=== PATIENT | male | born 1945 | race Caucasian/White ===

== ENCOUNTER 2018-04-20 09:54 | Emergency (ER) | payer MEDICARE, OTHER, SELFPAY ==
--- NOTE | 2018-04-20 10:01 | ED_ITS ---
HPI - Neuro Symptoms/Deficit General Chief Complaint: Neuro Symptoms/Deficit Stated Complaint: BURNING SENSATION ON RT SIDE OF FACE Time Seen by Provider: 04/20/18 09:56 Source: patient Mode of arrival: ambulatory Limitations: no limitations History of Present Illness HPI Narrative: 73-year-old male with a history of a TIA without any residual deficits here for evaluation of a burning sensation to his left cheek. Patient states that he woke at 3 o'clock this morning which is his normal time that he wakes up. He states that at some point after he woke up he started having a burning and itching to the left side of his face. He states that it has been occasional. Also is complaining of tingling that occasionally happens to the back of both sides of his hands. No other symptoms. Does have macular degeneration but no other changes in vision. No numbness or tingling in other parts of his body. No weakness. No chest pain. No nausea vomiting. No ear pain. Has not had his shingles vaccine. Does not have any rash on the side of his face. Related Data Home Medications Medication Instructions Recorded Confirmed [ANTIVERT] #0 01/27/17 Previous Rx's Medication Instructions Recorded cyclobenzaprine 10 mg PO Q8HP PRN #20 tab 01/27/17 cephalexin 500 mg capsule 1,000 mg PO BID 10 Days #40 cap 04/13/18 acyclovir 800 mg PO 5XD 7 Days #35 tab 04/20/18 Allergies Allergy/AdvReac Type Severity Reaction Status Date / Time No Known Drug Allergies Allergy Verified 04/20/18 10:08 Review of Systems Constitutional Denies fever(s) and Denies headache(s) Eyes Denies change in vision Comments: Macular degeneration ENT Ears, Nose, Mouth, and Throat: Denies vertigo, Denies dizziness, Denies headache (s), Denies sore throat and Denies throat swelling Cardiovascular Denies chest pain and Denies dyspnea Respiratory Denies dyspnea Gastrointestinal Gastrointestinal: Denies abdominal pain, Denies nausea and Denies vomiting Genitourinary Denies dysuria and Denies flank pain Musculoskeletal Denies myalgias and Denies arthralgias Integumentary/Breasts Reports pruritus (Left-sided face), Denies lesions, Denies erythema and Denies rash Comments: Burning left-sided face Neurologic Denies vertigo, Denies dizziness and Denies headache(s) Hematologic/Lymphatic Denies easy bleeding and Denies easy bruising Allergic/Immunologic Denies throat swelling [facility] Medical History High cholesterol (Acute) History of TIA (transient ischemic attack) (Acute) Macular degeneration (Acute) Surgical History No pertinent past surgical history (Acute) Social History Smoking Status: Current every day smoker alcohol intake: never Exam Initial Vital Signs Initial Vital Signs: Vital Signs Temperature 98.4 F 04/20/18 10:04 Pulse Rate 90 04/20/18 10:04 Respiratory Rate 13 04/20/18 10:04 Blood Pressure 155/76 H 04/20/18 10:04 Pulse Oximetry 100 04/20/18 10:04 Const General: cooperative, healthy appearing, comfortable, well developed, well groomed and No acute distress Orientation: alert, awake and oriented x3 HENMT Head: normal to inspection Ears: hearing grossly normal bilaterally and TM's normal bilaterally Nose: external nose normal Face and sinus: other (Redness over his left cheek see skin section for further details) Mouth: oral mucosae normal Eyes Eyelids: eyelids normal Pupils: PERRL EOM: EOM intact bilaterally Resp Effort & Inspection: normal respiratory effort Skin Other: Patient with slight redness over the left side of his nose and under his left eye. No vesicles. No blistering. No ulcerations. Neuro General: alert, awake, oriented x3 and gait normal Cranial Nerves: CN's II-XI intact bilaterally Cognition: normal cognition Speech: speech normal Gait: normal gait Motor: muscle tone normal throughout Sensory Exam: no sensory deficits noted (Patient denies any sensory deficits the time of my exam) Extrem General: normal to inspection, full ROM and capillary refill normal Psych Appearance: grossly normal and well kempt Course Vital Signs - 8 hr 04/20/18 10:04 Temperature 98.4 F Pulse Rate 90 Respiratory Rate 13 Blood Pressure 155/76 H Pulse Oximetry 100 MDM - Neuro Symptoms/Deficit Medical Records Attestation: I reviewed the patient's medical records. [facility] Narrative Medical decision making narrative: Patient was asymptomatic with regard to the tingling in the back of bilateral hands at the time of my exam. Was having some burning to the maxillary portion of the left-sided facial nerve. He does have some redness under his left eye. Patient states that this is not normal for him. I do not see any other blistering. He has got a normal neurologic exam otherwise. Secondary to his history and physical exam I have low suspicion for TIA or CVA. I do have some suspicion that the burning may be the very beginnings of the onset of zoster. He currently does not have any rashes. His tympanic membrane is unremarkable. No lesions on his nose. He is not having any ocular symptoms. Had a discussion with patient regarding his symptoms. Will hold on any workup for now. He was given return precautions with regard to TIA/CVA. He is currently taking an aspirin every day. Will send home with a prescription for acyclovir with instructions to hold on this prescription until when/if he develops a rash in the left side of his face. He was instructed that he would then needed to start taking the medicine. Instructed him that he did need to talk with his primary doctor regarding the shingles vaccine which he has not had up to this point. He was given return precautions with regard to this. Patient expressed understanding and agreement with plan. Discharge Plan Departure Patient Disposition: Home Clinical Impression: Facial paresthesia, Paresthesia of hand, bilateral Instructions: Herpes Zoster Vaccine Activity Restrictions/Additional Instructions: Hold on the prescription that you were given today. If he started to developed a rash or blisters on the left side of her face in the area where you are getting the tingling than I highly recommend you fill this prescription and start taking it as directed. Your physical exam today is not consistent with a stroke or a mini-stroke. Recommend that you contact her primary care doctor for a follow-up and to discuss the indications for the shingles vaccine. Return to the emergency department for any new symptoms, worsening symptoms, weakness in her arms and legs, or any other concerning symptoms. Prescriptions: New acyclovir 800 mg tablet 800 mg PO 5XD 7 Days Qty: 35 RF: 0 No Action cephalexin 500 mg capsule 1,000 mg PO BID 10 Days Qty: 40 RF: 0 [ANTIVERT] Qty: 0 RF: 0 cyclobenzaprine 10 MG tablet 10 mg PO Q8HP PRNQty: 20 RF: 0
[2018-04-20 10:04] VITALS: BP 155/76; PULSE 90; RESP 13; TEMP 36.9; O2SAT 100
== END 2018-04-20 10:40 | disposition home or self-care (01) ==
PROVIDERS: Emergency Provider Emergency Medicine; Family Provider Internal Medicine; PCP Internal Medicine
DX: R20.9 Unspecified disturbances of skin sensation (principal); R20.2 Paresthesia of skin
CPT/HCPCS: 99282; 99291

== ENCOUNTER 2018-05-15 12:48 | Emergency (ER) | payer MEDICARE, OTHER, SELFPAY ==
[2018-05-15 12:58] VITALS: BP 132/73; PULSE 199; RESP 14; TEMP 36.4; O2SAT 99
[2018-05-15 16:01] VITALS: BP 140/72; PULSE 97; RESP 18; O2SAT 99
--- NOTE | 2018-05-15 16:23 | PC.NURSE ---
Pt states he fell a few days ago and is now having abdominal discomfort and is concerned. pt states he is here to make sure nothing is wrong with his insides. Pt is ambulating without difficulty, states its hurts to sit so patient is pacing around room.
--- NOTE | 2018-05-15 16:48 | DI.RAD.S_ITS ---
PROCEDURE: XR LUMBAR SPINE 2-3V INDICATIONS: glf with pain TECHNIQUE: 3 views of the lumbar spine were acquired. COMPARISON: None. FINDINGS: Bones: 5 gli-uon-fkzegil vertebrae are present. There is straightening of normal lumbar lordosis. Degenerative endplate changes and decreased intervertebral disc space at L2-3 through L5-S1 levels are seen. No vertebral body compression fractures. No suspicious bony lesions. Soft tissues: Overlying bowel gas pattern is normal. No suspicious soft tissue calcifications. IMPRESSION: Degenerative disc disease throughout lumbar spine most prominent at L5-S1 level. No acute compression fracture or traumatic spondylolisthesis. Dictated by: Jigar Dover M.D. on 05/15/2018 at 17:11 Approved by: Jigar Dover M.D. on 05/15/2018 at 17:12
[2018-05-15 17:26] LABS: Hematocrit 42.4 % (41-53); Hemoglobin 14.4 g/dL (13.5-17.5); Mean Corpuscular HGB Conc 33.9 % (30-36); Mean Corpuscular Hemoglobin 32.3 PG (26-34); Mean Corpuscular Volume 95.4 fL (80-100); Platelet Count 295 X10^3/uL (150-400); Red Blood Cell Count 4.45 X10^6/uL (4.5-5.9); Red Cell Distribution Width 12.9 % (11.6-14.8); White Blood Cell Count 10.4 X10^3/uL (4.5-11.0)
[2018-05-15 17:41] LABS: Alanine Aminotransferase 37 IU/L (21-72); Albumin 4.4 g/dL (3.5-5.0); Albumin Globulin Ratio 1.4 (1.0-2.8); Alkaline Phosphatase 94 U/L (38-126); Aspartate Aminotransferase 28 IU/L (17-59); Bilirubin Total 0.7 mg/dL (0.2-1.3); Blood Urea Nitrogen 16 mg/dL (9-20); Calcium 9.6 mg/dL (8.4-10.2); Carbon Dioxide 30 mmol/L (22-32); Chloride 105 mmol/L (98-107); Estimated Glomerular Filt Rate > 60.0 mL/min (>60); Globulin 3.1 g/dL (1.7-4.1); Glucose 157 mg/dL (80-110); HEMOLYSIS < 15 (0-50); Potassium 4.7 mmol/L (3.4-5.1); Sodium 147 mmol/L (137-145); Total Protein 7.5 g/dL (6.3-8.2)
[2018-05-15 17:54] LABS: Neutrophils Absolute Manual 5096 /uL (3000-5900); Total Cells Counted 100
[2018-05-15 17:55] LABS: RBC Morphology Normal Morphology
--- NOTE | 2018-05-15 18:07 | ED.BACK ---
HPI - Back Pain/Injury <JENNIFER Cevallos - Last Filed: 05/15/18 22:18> General Chief Complaint: Back Pain/Injury Stated Complaint: fall on Sunday, has lower right back pain Time Seen by Provider: 05/15/18 16:41 Source: patient Mode of arrival: ambulatory Limitations: no limitations History of Present Illness HPI Narrative: Patient presents with chief complaint of low back pain. He states he tripped and fell approximately 4-5 days ago. He fell backwards and landed with his lower back on a pipe. He denies any abnormal numbness, tingling denies incontinence, denies weakness. He states he wants to have his insides checked to make sure there are not broken. He states that the pain is on the right side of his lower spine. He denies any bruising, ecchymosis, rash, laceration. He states he has been using ibuprofen once in a while for the pain. He states that there is no blood in his urine. He denies any chest pain, shortness of breath. He is adamant that he tripped and fell and did not pass out. Related Data Home Medications Medication Instructions Recorded Confirmed PreserVision AREDS 1 cap PO BID 05/15/18 05/15/18 aspirin 325 mg PO QPM 05/15/18 05/15/18 atorvastatin 40 mg PO QPM 05/15/18 05/15/18 ibuprofen 400 mg PO Q4-6H PRN 05/15/18 05/15/18 eoottqqq-iev-UJ-lycopen-lutein 1 tab PO QPM 05/15/18 05/15/18 [Centrum Silver] Previous Rx's Medication Instructions Recorded methocarbamol 500 mg PO QID PRN #30 tab 05/15/18 Allergies Allergy/AdvReac Type Severity Reaction Status Date / Time No Known Drug Allergies Allergy Verified 04/20/18 10:08 Review of Systems <JENNIFER Cevallos - Last Filed: 05/15/18 22:18> Review of Systems GENERAL: Denies chills, fatigue, malaise, fever, sweats. HEENT: Denies sinus pain, ear pain, sore throat, difficulty swallowing, dizziness. RESPIRATORY: Denies dyspnea, cough, wheezing, hemoptysis, sputum. CARDIOVASCULAR: Denies chest pain, palpitations, orthopnea, edema, GASTROINTESTINAL: Denies nausea, vomiting, abdominal pain, diarrhea, constipation, melena. : Denies dysuria, frequency, incontinence, hematuria, urinary retention. MUSCULOSKELETAL: See HPI SKIN: Denies rash, skin lesions, or other NEUROLOGIC: Denies weakness, headache, numbness, change in speech, confusion, seizures, incoordination. PSYCHIATRIC: No concerning psychosocial issues. 12 point review of systems is negative except for those stated above Exam <LEO Cevallos-BC - Last Filed: 05/15/18 22:18> Narrative Exam Narrative: GENERAL: This is a well-nourished, well-developed patient, standing in room HEAD: Atraumatic. Normocephalic. No temporal or scalp tenderness. EYES: Pupils equal round and reactive. Extraocular motions intact. No scleral icterus. No injection or drainage. ENT: Nose without bleeding, purulent drainage or septal hematoma. Throat without erythema, tonsillar hypertrophy or exudate. Uvula midline. Airway patent. NECK: Trachea midline. No JVD or lymphadenopathy. Supple, nontender, no meningeal signs. CARDIOVASCULAR: Regular rate and rhythm RESPIRATORY: Clear to auscultation. Breath sounds equal bilaterally. No wheezes, rales, or rhonchi. GASTROINTESTINAL: Abdomen soft, non-tender, nondistended. No hepato-splenomegaly, or palpable masses. No guarding. EXTREMITIES: No clubbing, cyanosis, or edema. No joint tenderness, effusion, or edema noted. BACK: No pain note C-spine or spinal palpation. Patient has pain on the right side of paraspinal muscles. Decreased range of motion. Stable gait. NEURO: AOx3. Using upper and lower extremities equally bilaterally. Stable gait SKIN: No rash or erythema. No erythema, rash, ecchymosis noted on back. Initial Vital Signs Initial Vital Signs: Vital Signs Temperature 97.6 F 05/15/18 12:58 Pulse Rate 199 H 05/15/18 12:58 Respiratory Rate 14 05/15/18 12:58 Blood Pressure 132/73 05/15/18 12:58 Pulse Oximetry 99 05/15/18 12:58 <Alexsandra Albrecht DO - Last Filed: 05/16/18 08:30> Initial Vital Signs Initial Vital Signs: Vital Signs Temperature 97.6 F 05/15/18 12:58 Pulse Rate 199 H 05/15/18 12:58 Respiratory Rate 14 05/15/18 12:58 Blood Pressure 132/73 05/15/18 12:58 Pulse Oximetry 99 05/15/18 12:58 Course <JENNIFER Cevallos - Last Filed: 05/15/18 22:18> Orders Ordered: Discontinued Medications Ketorolac Tromethamine (Toradol) 30 mg IM NOW ONE Stop: 05/15/18 17:54 Last Admin: 05/15/18 18:09 Dose: 30 mg Vital Signs - 8 hr 05/15/18 16:01 05/15/18 18:54 Pulse Rate 97 H 100 H Respiratory Rate 18 18 Blood Pressure 127/78 Blood Pressure [Left Arm] 140/72 Pulse Oximetry 99 98 <Alexsandra Albrecht DO - Last Filed: 05/16/18 08:30> Orders Ordered: Discontinued Medications Ketorolac Tromethamine (Toradol) 30 mg IM NOW ONE Stop: 05/15/18 17:54 Last Admin: 05/15/18 18:09 Dose: 30 mg Vital Signs - 8 hr 05/15/18 16:01 05/15/18 18:54 Pulse Rate 97 H 100 H Respiratory Rate 18 18 Blood Pressure 127/78 Blood Pressure [Left Arm] 140/72 Pulse Oximetry 99 98 MDM - Back Pain/Injury <JENNIFER Cevallos - Last Filed: 05/15/18 22:18> Lab Data Result diagrams: 05/15/18 17:19 05/15/18 17:19 Lab Results 05/15/18 05/15/18 Range/Units 17:19 17:19 WBC 10.4 (4.5-11.0) X10^3/uL RBC 4.45 L (4.5-5.9) X10^6/uL Hgb 14.4 (13.5-17.5) g/dL Hct 42.4 (41-53) % MCV 95.4 (80-100) fL MCH 32.3 (26-34) PG MCHC 33.9 (30-36) % RDW 12.9 (11.6-14.8) % Plt Count 295 (150-400) X10^3/uL Total Counted 100 Seg Neutrophils % 49.0 (38-70) % Lymphocytes % (Manual) 33.0 (25-45) % Atypical Lymphs % 6.0 H ( - 0) % Monocytes % (Manual) 7.0 (2-11) % Eosinophils % (Manual) 4.0 (2-4) % Basophils % (Manual) 1.0 (0-1) % Neutrophils # (Manual) 5096 (5571-8307) /uL RBC Morphology Normal morphology Sodium 147 H (137-145) mmol/L Potassium 4.7 (3.4-5.1) mmol/L Chloride 105 (98-107) mmol/L Carbon Dioxide 30 (22-32) mmol/L BUN 16 (9-20) mg/dL Creatinine 0.80 (0.66-1.25) mg/dL Estimated GFR > 60.0 (>60) mL/min BUN/Creatinine Ratio 20.0 (6-22) Glucose 157 H (80-110) mg/dL Calcium 9.6 (8.4-10.2) mg/dL Total Bilirubin 0.7 (0.2-1.3) mg/dL AST 28 (17-59) IU/L ALT 37 (21-72) IU/L Alkaline Phosphatase 94 (38-126) U/L Total Protein 7.5 (6.3-8.2) g/dL Albumin 4.4 (3.5-5.0) g/dL Globulin 3.1 (1.7-4.1) g/dL Albumin/Globulin Ratio 1.4 (1.0-2.8) Imaging Data l spine xray: Radiologist's impression: [address] [address] XRay Report Signed Patient: Herman Kc GMR#: [id number] : 7Acct:[id number] Age/Sex: 73 / MDate of Service: 05/15/18 Loc: ED Accession Number: [id number] Procedure: XR lumbar spine 2-3V Ordering Provider: Alexsandra Ruiz- PROCEDURE: XR LUMBAR SPINE 2-3V INDICATIONS: glf with pain TECHNIQUE: 3 views of the lumbar spine were acquired. COMPARISON: None. FINDINGS: Bones: 5 muk-lqy-dultlfu vertebrae are present. There is straightening of normal lumbar lordosis. Degenerative endplate changes and decreased intervertebral disc space at L2-3 through L5-S1 levels are seen. No vertebral body compression fractures. No suspicious bony lesions. Soft tissues: Overlying bowel gas pattern is normal. No suspicious soft tissue calcifications. IMPRESSION: Degenerative disc disease throughout lumbar spine most prominent at L5-S1 level. No acute compression fracture or traumatic spondylolisthesis. Dictated by: Jigar Dover M.D. on 05/15/2018 at 17:11 Approved by: Jigar Dover M.D. on 05/15/2018 at 17:12 [facility] Narrative Medical decision making narrative: Patient presents chief complaint lower back pain after falling onto a pipe several days ago. He is not neurologically compromised. He is stable on his feet. His x-ray was negative. I treated with Toradol in the emergency department gave him a prescription for a muscle relaxer. I discussed the warning signs return precautions to the emergency department including weakness, numbness, incontinence. Patient stated understanding and had no questions or concerns upon discharge. <Alexsandra Albrecht, DO - Last Filed: 05/16/18 08:30> Lab Data Lab Results 05/15/18 05/15/18 Range/Units 17:19 17:19 WBC 10.4 (4.5-11.0) X10^3/uL RBC 4.45 L (4.5-5.9) X10^6/uL Hgb 14.4 (13.5-17.5) g/dL Hct 42.4 (41-53) % MCV 95.4 (80-100) fL MCH 32.3 (26-34) PG MCHC 33.9 (30-36) % RDW 12.9 (11.6-14.8) % Plt Count 295 (150-400) X10^3/uL Total Counted 100 Seg Neutrophils % 49.0 (38-70) % Lymphocytes % (Manual) 33.0 (25-45) % Atypical Lymphs % 6.0 H ( - 0) % Monocytes % (Manual) 7.0 (2-11) % Eosinophils % (Manual) 4.0 (2-4) % Basophils % (Manual) 1.0 (0-1) % Neutrophils # (Manual) 5096 (9718-5895) /uL RBC Morphology Normal morphology Sodium 147 H (137-145) mmol/L Potassium 4.7 (3.4-5.1) mmol/L Chloride 105 (98-107) mmol/L Carbon Dioxide 30 (22-32) mmol/L BUN 16 (9-20) mg/dL Creatinine 0.80 (0.66-1.25) mg/dL Estimated GFR > 60.0 (>60) mL/min BUN/Creatinine Ratio 20.0 (6-22) Glucose 157 H (80-110) mg/dL Calcium 9.6 (8.4-10.2) mg/dL Total Bilirubin 0.7 (0.2-1.3) mg/dL AST 28 (17-59) IU/L ALT 37 (21-72) IU/L Alkaline Phosphatase 94 (38-126) U/L Total Protein 7.5 (6.3-8.2) g/dL Albumin 4.4 (3.5-5.0) g/dL Globulin 3.1 (1.7-4.1) g/dL Albumin/Globulin Ratio 1.4 (1.0-2.8) Discharge Plan Departure Patient Disposition: Home Clinical Impression: Back pain Discharge Date/Time: 05/15/18 18:53 Interventions: ED Discharge Assessment Last Done: 05/15/18 18:54 Instructions: Low Back Pain, DI for Low Back Pain, How To Perform RICE (Rest, Ice, Compress, Elevate) Activity Restrictions/Additional Instructions: Your x-rays came back today negative. Please take a muscle relaxer prescription, but do not combine it with any other muscle relaxers or anything that can be sedating. This all with her primary care provider for new or worse symptoms. Often times back pain heels on itself in about 6-8 weeks, but he may need physical therapy in the future or further workup. Please be evaluated immediately if you have any new numbness, tingling, incontinence or saddle anesthesia. Prescriptions: New methocarbamol 500 mg tablet 500 mg PO QID PRN (Reason: muscle spasm) Qty: 30 RF: 0 No Action atorvastatin 40 mg tablet 40 mg PO QPM RF: 0 aspirin 325 mg Tablet 325 mg PO QPM RF: 0 ibuprofen 200 mg Tablet 400 mg PO Q4-6H PRN (Reason: Pain, Mild) RF: 0 kxivepci-yau-BU-lycopen-lutein [Centrum Silver] 0.4-300-250 mg-mcg-mcg Tablet 1 tab PO QPM RF: 0 PreserVision AREDS 1 cap PO BID RF: 0 Referrals: Caleb Plata MD [Primary Care Provider] - <Alexsandra Albrecht DO - Last Filed: 05/16/18 08:30> Cosign ED Attending Cosignature Attestation: I was immediately available in the department for consultation. This documentation has been reviewed and I agree with assessment and plan. Supervised by Alexsandra Albrecht DO
[2018-05-15] MEDS: KETOROLAC 60 MG/2 ML VIAL 30 MG IM (18:09)
--- NOTE | 2018-05-15 18:14 | ED_ITS ---
HPI - Back Pain/Injury <JENNIFER Cevallos - Last Filed: 05/15/18 22:18> General Chief Complaint: Back Pain/Injury Stated Complaint: fall on Sunday, has lower right back pain Time Seen by Provider: 05/15/18 16:41 Source: patient Mode of arrival: ambulatory Limitations: no limitations History of Present Illness HPI Narrative: Patient presents with chief complaint of low back pain. He states he tripped and fell approximately 4-5 days ago. He fell backwards and landed with his lower back on a pipe. He denies any abnormal numbness, tingling denies incontinence, denies weakness. He states he wants to have his insides checked to make sure there are not broken. He states that the pain is on the right side of his lower spine. He denies any bruising, ecchymosis, rash , laceration. He states he has been using ibuprofen once in a while for the pain. He states that there is no blood in his urine. He denies any chest pain, shortness of breath. He is adamant that he tripped and fell and did not pass out. Related Data Home Medications Medication Instructions Recorded Confirmed PreserVision AREDS 1 cap PO BID 05/15/18 05/15/18 aspirin 325 mg PO QPM 05/15/18 05/15/18 atorvastatin 40 mg PO QPM 05/15/18 05/15/18 ibuprofen 400 mg PO Q4-6H PRN 05/15/18 05/15/18 hscjfdlw-nxb-GU-lycopen-lutein 1 tab PO QPM 05/15/18 05/15/18 [Centrum Silver] Previous Rx's Medication Instructions Recorded methocarbamol 500 mg PO QID PRN #30 tab 05/15/18 Allergies Allergy/AdvReac Type Severity Reaction Status Date / Time No Known Drug Allergies Allergy Verified 04/20/18 10:08 Review of Systems <JENNIFER Cevallos - Last Filed: 05/15/18 22:18> Review of Systems GENERAL: Denies chills, fatigue, malaise, fever, sweats. HEENT: Denies sinus pain, ear pain, sore throat, difficulty swallowing, dizziness. RESPIRATORY: Denies dyspnea, cough, wheezing, hemoptysis, sputum. CARDIOVASCULAR: Denies chest pain, palpitations, orthopnea, edema, GASTROINTESTINAL: Denies nausea, vomiting, abdominal pain, diarrhea, constipation, melena. : Denies dysuria, frequency, incontinence, hematuria, urinary retention. MUSCULOSKELETAL: See HPI SKIN: Denies rash, skin lesions, or other NEUROLOGIC: Denies weakness, headache, numbness, change in speech, confusion, seizures, incoordination. PSYCHIATRIC: No concerning psychosocial issues. 12 point review of systems is negative except for those stated above Exam <LEO Cevallos-BC - Last Filed: 05/15/18 22:18> Narrative Exam Narrative: GENERAL: This is a well-nourished, well-developed patient, standing in room HEAD: Atraumatic. Normocephalic. No temporal or scalp tenderness. EYES: Pupils equal round and reactive. Extraocular motions intact. No scleral icterus. No injection or drainage. ENT: Nose without bleeding, purulent drainage or septal hematoma. Throat without erythema, tonsillar hypertrophy or exudate. Uvula midline. Airway patent. NECK: Trachea midline. No JVD or lymphadenopathy. Supple, nontender, no meningeal signs. CARDIOVASCULAR: Regular rate and rhythm RESPIRATORY: Clear to auscultation. Breath sounds equal bilaterally. No wheezes , rales, or rhonchi. GASTROINTESTINAL: Abdomen soft, non-tender, nondistended. No hepato-splenomegaly , or palpable masses. No guarding. EXTREMITIES: No clubbing, cyanosis, or edema. No joint tenderness, effusion, or edema noted. BACK: No pain note C-spine or spinal palpation. Patient has pain on the right side of paraspinal muscles. Decreased range of motion. Stable gait. NEURO: AOx3. Using upper and lower extremities equally bilaterally. Stable gait SKIN: No rash or erythema. No erythema, rash, ecchymosis noted on back. Initial Vital Signs Initial Vital Signs: Vital Signs Temperature 97.6 F 05/15/18 12:58 Pulse Rate 199 H 05/15/18 12:58 Respiratory Rate 14 05/15/18 12:58 Blood Pressure 132/73 05/15/18 12:58 Pulse Oximetry 99 05/15/18 12:58 <Alexsandra Albrecht DO - Last Filed: 05/16/18 08:30> Initial Vital Signs Initial Vital Signs: Vital Signs Temperature 97.6 F 05/15/18 12:58 Pulse Rate 199 H 05/15/18 12:58 Respiratory Rate 14 05/15/18 12:58 Blood Pressure 132/73 05/15/18 12:58 Pulse Oximetry 99 05/15/18 12:58 Course <JENNIFER Cevallos - Last Filed: 05/15/18 22:18> Orders Ordered: Discontinued Medications Ketorolac Tromethamine (Toradol) 30 mg IM NOW ONE Stop: 05/15/18 17:54 Last Admin: 05/15/18 18:09 Dose: 30 mg Vital Signs - 8 hr 05/15/18 16:01 05/15/18 18:54 Pulse Rate 97 H 100 H Respiratory Rate 18 18 Blood Pressure 127/78 Blood Pressure [Left Arm] 140/72 Pulse Oximetry 99 98 <Alexsandra Albrecht DO - Last Filed: 05/16/18 08:30> Orders Ordered: Discontinued Medications Ketorolac Tromethamine (Toradol) 30 mg IM NOW ONE Stop: 05/15/18 17:54 Last Admin: 05/15/18 18:09 Dose: 30 mg Vital Signs - 8 hr 05/15/18 16:01 05/15/18 18:54 Pulse Rate 97 H 100 H Respiratory Rate 18 18 Blood Pressure 127/78 Blood Pressure [Left Arm] 140/72 Pulse Oximetry 99 98 MDM - Back Pain/Injury <JENNIFER Cevallos - Last Filed: 05/15/18 22:18> Lab Data Result diagrams: 05/15/18 17:19 05/15/18 17:19 Lab Results 05/15/18 05/15/18 Range/Units 17:19 17:19 WBC 10.4 (4.5-11.0) X10^3/uL RBC 4.45 L (4.5-5.9) X10^6/uL Hgb 14.4 (13.5-17.5) g/dL Hct 42.4 (41-53) % MCV 95.4 (80-100) fL MCH 32.3 (26-34) PG MCHC 33.9 (30-36) % RDW 12.9 (11.6-14.8) % Plt Count 295 (150-400) X10^3/uL Total Counted 100 Seg Neutrophils % 49.0 (38-70) % Lymphocytes % (Manual) 33.0 (25-45) % Atypical Lymphs % 6.0 H ( - 0) % Monocytes % (Manual) 7.0 (2-11) % Eosinophils % (Manual) 4.0 (2-4) % Basophils % (Manual) 1.0 (0-1) % Neutrophils # (Manual) 5096 (2024-4644) /uL RBC Morphology Normal morphology Sodium 147 H (137-145) mmol/L Potassium 4.7 (3.4-5.1) mmol/L Chloride 105 (98-107) mmol/L Carbon Dioxide 30 (22-32) mmol/L BUN 16 (9-20) mg/dL Creatinine 0.80 (0.66-1.25) mg/dL Estimated GFR > 60.0 (>60) mL/min BUN/Creatinine Ratio 20.0 (6-22) Glucose 157 H (80-110) mg/dL Calcium 9.6 (8.4-10.2) mg/dL Total Bilirubin 0.7 (0.2-1.3) mg/dL AST 28 (17-59) IU/L ALT 37 (21-72) IU/L Alkaline Phosphatase 94 (38-126) U/L Total Protein 7.5 (6.3-8.2) g/dL Albumin 4.4 (3.5-5.0) g/dL Globulin 3.1 (1.7-4.1) g/dL Albumin/Globulin Ratio 1.4 (1.0-2.8) Imaging Data l spine xray: Radiologist's impression: [address] [address] XRay Report Signed Patient: Herman Kc GMR#: [id number] : 7Acct:[id number] Age/Sex: 73 / MDate of Service: 05/15/18 Loc: ED Accession Number: [id number] Procedure: XR lumbar spine 2-3V Ordering Provider: Alexsandra Ruiz- PROCEDURE: XR LUMBAR SPINE 2-3V INDICATIONS: glf with pain TECHNIQUE: 3 views of the lumbar spine were acquired. COMPARISON: None. FINDINGS: Bones: 5 dwx-uel-lojffir vertebrae are present. There is straightening of normal lumbar lordosis. Degenerative endplate changes and decreased intervertebral disc space at L2-3 through L5-S1 levels are seen. No vertebral body compression fractures. No suspicious bony lesions. Soft tissues: Overlying bowel gas pattern is normal. No suspicious soft tissue calcifications. IMPRESSION: Degenerative disc disease throughout lumbar spine most prominent at L5-S1 level. No acute compression fracture or traumatic spondylolisthesis. Dictated by: Jigar Dover M.D. on 05/15/2018 at 17:11 Approved by: Jigar Dover M.D. on 05/15/2018 at 17:12 [facility] Narrative Medical decision making narrative: Patient presents chief complaint lower back pain after falling onto a pipe several days ago. He is not neurologically compromised. He is stable on his feet. His x-ray was negative. I treated with Toradol in the emergency department gave him a prescription for a muscle relaxer. I discussed the warning signs return precautions to the emergency department including weakness, numbness, incontinence. Patient stated understanding and had no questions or concerns upon discharge. <Alexsandra Albrecht, DO - Last Filed: 05/16/18 08:30> Lab Data Lab Results 05/15/18 05/15/18 Range/Units 17:19 17:19 WBC 10.4 (4.5-11.0) X10^3/uL RBC 4.45 L (4.5-5.9) X10^6/uL Hgb 14.4 (13.5-17.5) g/dL Hct 42.4 (41-53) % MCV 95.4 (80-100) fL MCH 32.3 (26-34) PG MCHC 33.9 (30-36) % RDW 12.9 (11.6-14.8) % Plt Count 295 (150-400) X10^3/uL Total Counted 100 Seg Neutrophils % 49.0 (38-70) % Lymphocytes % (Manual) 33.0 (25-45) % Atypical Lymphs % 6.0 H ( - 0) % Monocytes % (Manual) 7.0 (2-11) % Eosinophils % (Manual) 4.0 (2-4) % Basophils % (Manual) 1.0 (0-1) % Neutrophils # (Manual) 5096 (5556-6370) /uL RBC Morphology Normal morphology Sodium 147 H (137-145) mmol/L Potassium 4.7 (3.4-5.1) mmol/L Chloride 105 (98-107) mmol/L Carbon Dioxide 30 (22-32) mmol/L BUN 16 (9-20) mg/dL Creatinine 0.80 (0.66-1.25) mg/dL Estimated GFR > 60.0 (>60) mL/min BUN/Creatinine Ratio 20.0 (6-22) Glucose 157 H (80-110) mg/dL Calcium 9.6 (8.4-10.2) mg/dL Total Bilirubin 0.7 (0.2-1.3) mg/dL AST 28 (17-59) IU/L ALT 37 (21-72) IU/L Alkaline Phosphatase 94 (38-126) U/L Total Protein 7.5 (6.3-8.2) g/dL Albumin 4.4 (3.5-5.0) g/dL Globulin 3.1 (1.7-4.1) g/dL Albumin/Globulin Ratio 1.4 (1.0-2.8) Discharge Plan Departure Patient Disposition: Home Clinical Impression: Back pain Discharge Date/Time: 05/15/18 18:53 Interventions: ED Discharge Assessment Last Done: 05/15/18 18:54 Instructions: Low Back Pain, DI for Low Back Pain, How To Perform RICE (Rest, Ice, Compress, Elevate) Activity Restrictions/Additional Instructions: Your x-rays came back today negative. Please take a muscle relaxer prescription , but do not combine it with any other muscle relaxers or anything that can be sedating. This all with her primary care provider for new or worse symptoms. Often times back pain heels on itself in about 6-8 weeks, but he may need physical therapy in the future or further workup. Please be evaluated immediately if you have any new numbness, tingling, incontinence or saddle anesthesia. Prescriptions: New methocarbamol 500 mg tablet 500 mg PO QID PRN (Reason: muscle spasm) Qty: 30 RF: 0 No Action atorvastatin 40 mg tablet 40 mg PO QPM RF: 0 aspirin 325 mg Tablet 325 mg PO QPM RF: 0 ibuprofen 200 mg Tablet 400 mg PO Q4-6H PRN (Reason: Pain, Mild) RF: 0 sgwfazgn-jge-LV-lycopen-lutein [Centrum Silver] 0.4-300-250 mg-mcg-mcg Tablet 1 tab PO QPM RF: 0 PreserVision AREDS 1 cap PO BID RF: 0 Referrals: Caleb Plata MD [Primary Care Provider] - <Alexsandra Albrecht DO - Last Filed: 05/16/18 08:30> Cosign ED Attending Cosignature Attestation: I was immediately available in the department for consultation. This documentation has been reviewed and I agree with assessment and plan. Supervised by Alexsandra Albrecht DO
[2018-05-15 18:54] VITALS: BP 127/78; PULSE 100; RESP 18; O2SAT 98
== END 2018-05-15 18:53 | disposition home or self-care (01) ==
PROVIDERS: Emergency Provider Nurse Practitioner Family; Family Provider Internal Medicine; PCP Internal Medicine
DX: M54.9 Dorsalgia, unspecified (principal); W01.198A Fall on same level from slipping, tripping and stumbling with subsequent striking against other object, initial encounter
CPT/HCPCS: 36415; 72100; 80053; 85025; 96372; 99282; 99284; J1885

== ENCOUNTER → 2018-05-29 17:11 | Outpatient (CLI) | payer MEDICARE, OTHER, SELFPAY ==
--- NOTE | 2018-05-29 17:14 | DI.MRI.S_ITS ---
PROCEDURE: MR LUMBAR SPINE WO CON INDICATIONS: MUSCLE WEAKNESS TECHNIQUE: Noncontrast sagittal T1 spin echo and T2 fast echo, sagittal STIR, axial T1 and T2 fast spin echo through the lumbar spine. In cases with scoliosis, additional coronal T2 fast spin echo may be performed. COMPARISON: [facility], CR, XR LUMBAR SPINE 2-3V, 05/15/2018, 16:30. FINDINGS: Image quality: Excellent. Alignment and Curvature: There are 5 lumbar-type vertebral bodies by plain film. There is mild grade 1 retrolisthesis of L3 on L4 and L5 on S1. Bone Marrow: Marrow is of normal overall signal. No acute vertebral body compression fractures. Mild reactive signal within the endplates adjacent to the L1-L2, L2-L3, and L3-L4 intervertebral discs. Moderate reactive signal within the endplates adjacent to the L4-L5 and L5-S1 intervertebral discs. Spinal Cord: Conus medullaris terminates at the mid L2 level. Visualized cord demonstrates normal signal and size. Paraspinous Soft Tissues: No paravertebral masses. L1-L2: Mild disc loss and desiccation. Mild diffuse disc bulge. Mild facet and ligamentum plate margin bilaterally. Mild canal stenosis. No foraminal stenosis. L2-L3: Mild disc desiccation. Mild diffuse disc bulge. Mild facet and ligamentum flavum hypertrophy bilaterally. Mild canal stenosis. Mild bilateral foraminal stenosis. L3-L4: Mild disc desiccation. Mild diffuse disc bulge. Mild bilateral facet hypertrophy. Mild canal stenosis. Mild bilateral foraminal stenosis. L4-L5: Mild disc height loss and desiccation. Mild diffuse disc bulge. Mild bilateral facet and ligamentum flavum hypertrophy. Mild canal stenosis. Mild left greater than right foraminal stenosis. L5-S1: Moderate disc height loss and desiccation. Mild diffuse disc bulge with superimposed broad-based right posterolateral and far lateral protrusion. Bilateral facet hypertrophy. Mild canal stenosis. Moderate right and mild left foraminal stenosis. IMPRESSION: 1. Multilevel degenerative disc and facet disease, as well ligamentum flavum hypertrophy. 2. Mild multilevel canal stenoses. 3. Multilevel foraminal stenoses, worst on the right at L5-S1, where there is moderate foraminal stenosis present. Dictated by: Santo Staples M.D. on 05/30/2018 at 8:19 Approved by: Santo Staples M.D. on 05/30/2018 at 8:26
== END ==
PROVIDERS: Family Provider Internal Medicine; PCP Internal Medicine; Visit Provider Internal Medicine
DX: M51.36 Other intervertebral disc degeneration, lumbar region (principal); M51.37 Other intervertebral disc degeneration, lumbosacral region; M62.81 Muscle weakness (generalized); M48.061 Spinal stenosis, lumbar region without neurogenic claudication; M48.07 Spinal stenosis, lumbosacral region
CPT/HCPCS: 72148

== ENCOUNTER → 2019-10-15 20:23 | Outpatient (ROUT) | payer MEDICARE, OTHER, SELFPAY ==
[2019-10-15 22:41] LABS: Prostate Specific Antigen 3.58 ng/mL (0.10-4.00)
== END ==
PROVIDERS: Family Provider Internal Medicine; PCP Internal Medicine; Visit Provider Internal Medicine
DX: R97.20 Elevated prostate specific antigen [PSA] (principal)
CPT/HCPCS: 84153

== ENCOUNTER → 2019-12-19 16:04 | Outpatient (CLI) | payer MEDICARE, OTHER, SELFPAY ==
[2019-12-19 17:34] LABS: Prostate Specific Antigen 1.39 ng/mL (0.10-4.00)
== END ==
PROVIDERS: Family Provider Internal Medicine; PCP Internal Medicine; Referring Provider Specialist; Visit Provider Specialist
DX: N40.1 Benign prostatic hyperplasia with lower urinary tract symptoms (principal)
CPT/HCPCS: 36415; 84153

== ENCOUNTER → 2019-12-25 13:31 | Outpatient (CLI) | payer MEDICARE, OTHER, SELFPAY ==
[2019-12-26 01:01] LABS: COVID19 Sendout Not Detected (Not Detect)
== END ==
PROVIDERS: Family Provider Internal Medicine; PCP Internal Medicine; Visit Provider Physician Assistant
DX: Z01.818 Encounter for other preprocedural examination (principal)
CPT/HCPCS: 87635

== ENCOUNTER 2019-12-29 06:31 | Day surgery (SDC) | payer MEDICARE, OTHER, SELFPAY ==
[2019-12-25 10:41] VITALS: BMI 20.7
[2019-12-29] VITALS (17 sets, daily range): BP systolic 117–137; BP diastolic 59–75; PULSE 61–85; RESP 9–75; TEMP 36.1–37.2; O2SAT 97–100; BMI 20.7
--- NOTE | 2019-12-29 | PATH_ITS ---
[facility] Accession Number: [id number] . 01 Material submitted: . PART A: bladder - RIGHT BLADDER BASE PART B: bladder - LEFT BLADDER BASE . 02 Diagnosis: A., B. Right Bladder Base, Left Bladder Base, TURBP: Papillary urothelial carcinoma, noninvasive; see cancer case summary. . CANCER CASE SUMMARY - URINARY BLADDER . Procedure: Transurethral resection of bladder. Tumor site: Right and left bladder base. Histologic type: Papillary urothelial carcinoma, noninvasive. Associated epithelial lesions: Not identified. Histologic grade: Low grade. Tumor configuration: Papillary. Muscularis propria presence: Muscularis propria present (in left bladder base specimen). Lymphovascular invasion: Not identified. Tumor extension: Noninvasive papillary carcinoma. . [facility] 12/30/2019 1209 Local . 02 Electronically signed: . Rogelio Abraham MD, PhD, Pathologist NPI- [id number] . 01 Gross description: . Part A: RIGHT BLADDER BASE: Received in formalin is 1 fragment(s) of wick, soft tissue measuring 0.3 x 0.2 x 0.2 cm submitted entirely in 1 cassette(s) Part B: LEFT BLADDER BASE: Received in formalin are multiple fragment(s) of wick, soft tissue measuring 0.1 x 0.1 x 0.1 cm to 0.3 x 0.2 x 0.2 cm submitted entirely in 1 cassette(s) /[facility] [place] 12/29/20192022 Local . 02 Pathologist provided ICD-10: C67.9 . 02 CPT . 788022, [id number] Performed at: 01 [facility] [address] [place] [address] [address] [facility], [place], [place] [id number] MD Feliciano Garcia MD Phone: [phone] Performed at: 02 [facility] [place] [address] [place] [id number] MD Vilma Serrano MD Phone: [phone]
--- NOTE | 2019-12-29 07:27 | PM.PREOP ---
Pre-operative Note Interval Note History & Physical reviewed/Exam performed by Physician: Yes Changes to H&P: No H&P completed within 30 days and has changed as indicated here:: There are no changes to the history and physical examination scanned on file.
[2019-12-29] MEDS: LACTATED RINGERS 1,000 ML 42 ML IV (07:33)
[2019-12-29] MEDS: CEFAZOLIN 2 GM/100 ML FROZ.PIGGY IV (07:46)
--- NOTE | 2019-12-29 08:15 | SUR.OPER ---
Lithotomy on padded OR bed, head on pillow, arms secured on padded arm boards at <90 degrees abduction. Legs secured in padded yellow fins stirrups.
[2019-12-29] MEDS: BELLADONNA/OPIUM SUPPOSITORIES 1 EACH PR (08:25)
--- NOTE | 2019-12-29 08:29 | PM.OP.1 ---
Operative Date/Time/Diagnoses Date of procedure: 12/29/19 Time of procedure: 08:29 Pre-op diagnosis: 1. 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 Post-op diagnosis: same Procedure & Clinicians Procedure: 1. Cystoscopy and transurethral resection of bladder tumors x2 (0.5-2 cm). 2. Instillation mitomycin C (20 mg). Same procedure as scheduled: Yes Indications: 1. Recurrent papillary bladder cancer x2. Surgeon: Elisa Dhillon Click Yes if Unassisted: Yes Anesthesia Type: General Operative Notes Findings: 1. Urethral-normal. 2. External sphincter-coapted. 3. Prostate-3.5-4 cm length with high median bar. 4. Bladder-1+ trabeculation. Normal orifices bilaterally. There are 2 papillary neoplasms on the bladder floor the smaller, noted as specimen 1 is on the right. The larger neoplasm labeled specimen 2 is on the left bladder floor. Closure Type: not applicable Specimen(s): other (Papillary bladder neoplasm, 1. And 2. ) Applied: catheter Estimated Blood Loss (mL): 0 Blood products transfused: none Tourniquet time (min): 0 Procedure in detail: The patient was positioned in supine and administered general anesthesia he was then repositioned in semi lithotomy and the lower abdomen genitalia and groin were prepped and draped in sterile fashion. The resectoscope was then advanced to the lower urinary tract with the findings as described above. Using the cold cup biopsy forceps each of the 2 tumors were resected by cold technique. The cold cup biopsy forcep was then replaced with the TUR loop. Each of the tumor bases and periphery were cautery destroyed. Hemostasis was obtained with electrocautery via the loop. The bladder was left partially filled and the resectoscope was removed. A 16 Kinyarwanda Longo catheter was then inserted in the bladder, the balloon inflated to 10 cc. Bladder contents were then drained and the mitomycin instillation was instilled for anticipated to our postoperative retention. Complications: none Post-operative Condition: stable Disposition: PACU Plan for aftercare: Discharge home
[2019-12-29] MEDS: mitoMYcin 20 MG in WATER FOR INJECTION 20 ML 240 ML INTRAVESIC (08:40)
--- NOTE | 2019-12-29 08:50 | SUR.PHASEI ---
Patient arouses to voice. Mitomycin given by Dr Dhillon. Patient states he has mild discomfort, but it is tolerable and did not want pain medication at this time. Tolerating po. Denies nausea.
--- NOTE | 2019-12-29 09:14 | SUR.PHASEI ---
Patient continues to doze intermittently. Denies pain and nausea.Pt aware mitomycin needs to stay in bladder for 2 hours: until 1040.
--- NOTE | 2019-12-29 10:57 | SUR.PHASEII ---
DC'd delarosa catheter. UOP per delarosa = 400. Patient states he was feeling more discomfort with the feeling of a full bladder and the urge to void, but states he is comfortable and is refusing pain medication. States, I don't take medication. Reviewed reasons to take pain medications after surgery, but pt insisted he didn't want any.
--- NOTE | 2019-12-29 12:11 | SUR.PHASEII ---
Patient voided x 2. 50ml each time.
== END 2019-12-29 12:12 | disposition home or self-care (01) ==
PROVIDERS: Family Provider Internal Medicine; PCP Internal Medicine; Referring Provider Specialist; Visit Provider Specialist
PROC: 0TBB8ZZ Excision of Bladder, Via Natural or Artificial Opening Endoscopic (ICD-10-PCS; CPT 52234; principal; 2019-12-29 07:45)
DX: C67.9 Malignant neoplasm of bladder, unspecified (principal); N40.0 Benign prostatic hyperplasia without lower urinary tract symptoms; F17.210 Nicotine dependence, cigarettes, uncomplicated
CPT/HCPCS: 52234; J0690; J2405; J2704; J3010; J9280

== ENCOUNTER → 2020-04-05 12:14 | Outpatient (CLI) | payer MEDICARE, OTHER, SELFPAY ==
[2020-04-05 13:13] LABS: Add Manual Diff / Slide Review NO; Basophils Absolute Auto 0 /uL (0-100); Basophils Percent Auto 0.5 % (0-2); Eosinophils Absolute Auto 200 /uL (0-450); Eosinophils Percent Auto 2.4 % (2-4); Hemoglobin 12.9 g/dL (13.5-17.5); Lymphocytes Absolute Auto 2200 /uL (1100-4500); Lymphocytes Percent Auto 28.7 % (25-40); Mean Corpuscular Hemoglobin 32.1 PG (26-34); Mean Corpuscular Volume 94.3 fL (80-100); Monocytes Absolute Auto 700 /uL (0-900); Monocytes Percent Auto 8.7 % (3-14); Neutrophils Absolute Auto 4600 /uL (1500-7000); Neutrophils Percent Auto 59.7 % (50-75); Platelet Count 250 X10^3/uL (150-400); Red Blood Cell Count 4.03 X10^6/uL (4.5-5.9); Red Cell Distribution Width 12.3 % (11.6-14.8); White Blood Cell Count 7.8 X10^3/uL (4.5-11.0)
[2020-04-05 13:53] LABS: Alanine Aminotransferase 23 IU/L (<50); Albumin Globulin Ratio 1.4 (1.0-2.8); Alkaline Phosphatase 115 U/L (38-126); Aspartate Aminotransferase 26 IU/L (17-59); BUN Creatinine Ratio 25.3 (6-22); Bilirubin Total 0.5 mg/dL (0.2-1.3); Blood Urea Nitrogen 20 mg/dL (9-20); Calcium 9.8 mg/dL (8.4-10.2); Carbon Dioxide 27 mmol/L (22-32); Chloride 102 mmol/L (98-107); Estimated Glomerular Filt Rate > 60.0 mL/min (>60); Globulin 2.9 g/dL (1.7-4.1); Glucose 245 mg/dL (80-110); HEMOLYSIS < 15 (0-50); Potassium 4.4 mmol/L (3.4-5.1); Sodium 135 mmol/L (137-145); Total Protein 6.9 g/dL (6.3-8.2)
== END ==
PROVIDERS: Family Provider Internal Medicine; PCP Internal Medicine; Referring Provider Internal Medicine; Visit Provider Student in an Organized Health Care Education/Training Program
DX: R42 Dizziness and giddiness (principal)
CPT/HCPCS: 36415; 80053; 85025

== ENCOUNTER → 2020-10-13 15:12 | Outpatient (CLI) | payer MEDICARE, OTHER, SELFPAY ==
[2020-10-13 16:11] LABS: Add Manual Diff / Slide Review NO; Basophils Absolute Auto 0 /uL (0-100); Basophils Percent Auto 0.7 % (0-2); Eosinophils Absolute Auto 100 /uL (0-450); Eosinophils Percent Auto 1.9 % (2-4); Hematocrit 37.5 % (41-53); Hemoglobin 12.7 g/dL (13.5-17.5); Lymphocytes Absolute Auto 1900 /uL (1100-4500); Lymphocytes Percent Auto 27.7 % (25-40); Mean Corpuscular HGB Conc 33.9 % (30-36); Mean Corpuscular Hemoglobin 32.3 PG (26-34); Mean Corpuscular Volume 95.4 fL (80-100); Monocytes Absolute Auto 600 /uL (0-900); Monocytes Percent Auto 8.9 % (3-14); Neutrophils Absolute Auto 4200 /uL (1500-7000); Neutrophils Percent Auto 60.8 % (50-75); Platelet Count 231 X10^3/uL (150-400); Red Blood Cell Count 3.94 X10^6/uL (4.5-5.9); Red Cell Distribution Width 12.4 % (11.6-14.8); White Blood Cell Count 6.9 X10^3/uL (4.5-11.0)
[2020-10-13 16:19] LABS: Alanine Aminotransferase 25 IU/L (<50); Albumin Globulin Ratio 1.4 (1.0-2.8); Alkaline Phosphatase 107 U/L (38-126); Aspartate Aminotransferase 25 IU/L (17-59); BUN Creatinine Ratio 25.3 (6-22); Bilirubin Total 0.5 mg/dL (0.2-1.3); Blood Urea Nitrogen 21 mg/dL (9-20); Calcium 9.2 mg/dL (8.4-10.2); Carbon Dioxide 28 mmol/L (22-32); Chloride 97 mmol/L (98-107); Cholesterol 100 mg/dL (140-199); Estimated Glomerular Filt Rate > 60.0 mL/min (>60); Globulin 2.9 g/dL (1.7-4.1); Glucose 402 mg/dL (80-110); HDL Cholesterol 33 mg/dL (40-60); HEMOLYSIS < 15 (0-50); LDL Cholesterol Calculated 40 mg/dL (<100); Potassium 4.2 mmol/L (3.4-5.1); Sodium 131 mmol/L (137-145); Total Protein 6.9 g/dL (6.3-8.2); Triglycerides 134 mg/dL (35-150)
[2020-10-13 16:49] LABS: TSH w/ Reflex to FT4 1.39 uIU/mL (0.47-4.68)
== END ==
PROVIDERS: Family Provider Internal Medicine; PCP Internal Medicine; Referring Provider Internal Medicine; Visit Provider Internal Medicine
DX: E11.69 Type 2 diabetes mellitus with other specified complication (principal); E78.2 Mixed hyperlipidemia
CPT/HCPCS: 36415; 80053; 80061; 84443; 85025

== ENCOUNTER → 2020-11-08 08:08 | Outpatient (CLI) | payer MEDICARE, OTHER, SELFPAY ==
[2020-11-08] MEDS: COVID-19 VACC, Ad26(JANSSEN)/PF 0.5 ML IM (08:10)
== END ==
PROVIDERS: Family Provider Internal Medicine; PCP Internal Medicine; Visit Provider Internal Medicine
DX: Z23 Encounter for immunization (principal)
CPT/HCPCS: 0031A; 91303

== ENCOUNTER → 2020-11-24 08:38 | Outpatient (CLI) | payer MEDICARE, OTHER, SELFPAY ==
--- NOTE | 2020-11-24 10:15 | DIET.PN ---
Diabetes Intake: Initial Assessment Assess: Mr. Kc is a 75 yom referred for recently diagnosed type 2 diabetes. He reports significant dietary changes since diagnosis. He has been avoiding all sugar and starches other than his breakfast cereal. Admits to eating a large bowl of raisin bran with 12oz milk. He has been monitoring his bedtime bg. Labs: Per pt report: A1c: 12.0 Meds: metformin 500mg BID Diet: per 24 hr recall: B: raisin bran w/ milk L: leftover meat; sandwich D: protein, vegetables Sn: handful of peanuts; dried cranberries Wt: 150lb Ht: 70in BMI: 21.5 BP: 126/72 DX: Altered nutrition related laboratory values related to impaired glucose metabolism, lack of previous exposure to nutrition information as evidenced by pt report, diagnosis of diabetes, previous diet high in refined carbohydrates. Intervention: 1. Completed intake assessment. Discussed barriers to care. 2. Discussed pathophysiology of diabetes. Reviewed A1c and its correlation to blood glucose numbers. Discussed recommended BG ranges. 3. Discussed importance of self-monitoring, how often, and when to check. 4. Reviewed hyper/hypoglycemia and treatment. 5. Reviewed safe disposal of equipment (strip/lancets/insulin needles). 6. Created SMART goals for pt self-care and success. 7. Discussed program curriculum outline and class needs based on individual goals. SMART Goals: 1. A1c <7.0 in the next 3-6 mo through continued dietary efforts including carb counting, portion control and regular exercise. Monitor/Evaluate: Pt will attend full DSME program. Basic Nutrition class scheduled for Nov 30.
== END ==
PROVIDERS: Family Provider Internal Medicine; PCP Internal Medicine; Referring Provider Internal Medicine; Visit Provider Internal Medicine
DX: E11.9 Type 2 diabetes mellitus without complications (principal)
CPT/HCPCS: G0108

== ENCOUNTER → 2020-11-30 13:46 | Outpatient (CLI) | payer MEDICARE, OTHER, SELFPAY ==
--- NOTE | 2020-11-30 15:13 | DIET.PN ---
Diabetes: Healthy Eating 1 Intervention: ? Discussed pathophysiology of diabetes and impact of nutrition/diet on blood sugar control.? Discussed fed versus non-fed state.?? ? Reviewed importance of Balance, Variety, and Moderation. ? Discussed the effect of carbohydrates/protein/fat on blood sugar control.? ? Stressed importance of consistent carbohydrate intake at each meal and provided instructions for recommended servings/portions of carbohydrates/protein per meal. Provided educational material. ? Reviewed carbohydrate counting and measuring carbohydrate content via serving sizes and reading nutrition labels.? Provided handouts.?? ? Discussed the difference between simple versus complex carbohydrates and the effect of fiber on blood sugar control.? Discussed various methods to increase fiber content in diet. ? Discussed the plate method for creating more carbohydrate conscious balanced meals. ? Stressed importance of meal timing and not going >4-5 hours between meals. Encouraged adding protein to evening snack to support glucose control overnight. ? Discussed importance of making dietary habits part of lifestyle change.
== END ==
PROVIDERS: Family Provider Internal Medicine; PCP Internal Medicine; Referring Provider Internal Medicine; Visit Provider Internal Medicine
DX: E11.9 Type 2 diabetes mellitus without complications (principal); Z71.3 Dietary counseling and surveillance
CPT/HCPCS: G0109

== ENCOUNTER → 2020-12-07 13:47 | Outpatient (CLI) | payer MEDICARE, OTHER, SELFPAY ==
--- NOTE | 2020-12-07 15:59 | DIET.PN ---
Diabetes: Healthy Eating 2 Intervention: Fats effects on glucose, weight, heart disease, cholesterol Sat Vs Unsat Protein- animal and plant based options Low, med, high fat meats Sugar substitutes Sodium Health claims Grocery shopping guidelines Eating away from home Alcohol Sick day guidelines Ketone Testing
== END ==
PROVIDERS: Family Provider Internal Medicine; PCP Internal Medicine; Referring Provider Internal Medicine; Visit Provider Internal Medicine
DX: E11.9 Type 2 diabetes mellitus without complications (principal); Z71.3 Dietary counseling and surveillance
CPT/HCPCS: G0109

== ENCOUNTER → 2020-12-23 11:40 | Outpatient (CLI) | payer MEDICARE, OTHER, SELFPAY ==
--- NOTE | 2020-12-23 11:47 | DI.CT.S_ITS ---
PROCEDURE: CT SINUS SCREEN WO CON INDICATIONS: Chronic pansinusitis/MASS OF RT PAROTID GLAND TECHNIQUE: Noncontrast 3.0 mm axial images acquired from the frontal sinuses to the mid-sella, with coronal and sagittal reformats. For radiation dose reduction, the following was used: automated exposure control, adjustment of mA and/or kV according to patient size. COMPARISON: [facility], CT, CT HEAD TPA, 09/21/2017, 5:19. [facility], CT, CT ANGIO HEAD AND NECK, 09/21/2017, 7:33. FINDINGS: Image quality: Excellent. Maxillary Sinuses: No bony remodeling or destruction. Mild mucosal thickening is seen involving the inferior maxillary sinuses. Ethmoid Air Cells: No bony remodeling or destruction. Sinuses are clear. Sphenoid Sinuses: No bony remodeling or destruction. Sinuses are clear. Frontal Sinuses: No bony remodeling or destruction. There is a mild degree of mucosal thickening seen within the inferomedial frontal sinuses, left worse than right. Ostiomeatal Complexes: Ostiomeatal complexes are patent, yet there constitutionally narrowed. No xena Enrique cells. Miscellaneous: Visualized intra-orbital contents are normal. No sixto bullosa or paradoxical turbinate curvature. There is mild rightward nasal septal deviation. IMPRESSION: Mild paranasal sinus disease is seen. Mild rightward nasal septal deviation noted. Dictated by: Hugo Ferrara M.D. on 12/23/2020 at 11:42 Approved by: Hugo Ferrara M.D. on 12/23/2020 at 11:44
--- NOTE | 2020-12-23 12:48 | DI.CT.S_ITS ---
PROCEDURE: CT SOFT TISSUE NECK W CON INDICATIONS: MASS OF RT PAROTID GLAND TECHNIQUE: After the administration of intravenous contrast, 3.0 mm axial sections acquired from the sella to the aortic arch. Additional oblique axial 3.0 mm sections acquired through the pharynx. 3 mm thick coronal and sagittal reformats were generated. For radiation dose reduction, the following was used: automated exposure control. COMPARISON: None. FINDINGS: Image quality: There is artifact associated with the metallic hardware. Artifact from the metallic hardware is reduced by metal reconstruction algorithm. Lymph nodes: No enlarged lymph nodes seen throughout the neck. Vessels: Visualized vasculature appears patent. Neck spaces: The oropharynx, nasopharynx, and pharynx demonstrate no mucosal lesions. The vocal cords, false vocal cords, pyriform sinuses, epiglottis, vallecula, and tongue base all appear normal. Extramucosal spaces appear unremarkable. Glands: There is a rim enhancing low-density mass seen involving the right parotid that measures 2.9 x 2.2 cm in greatest axial dimension, with a craniocaudal extent of 4.3 cm. The left parotid gland demonstrates no mass. The submandibular glands appear normal. Thyroid gland demonstrates no significant abnormality. Miscellaneous: Visualized brain and orbits appear normal. Lung apices appear clear. Superficial soft tissues appear normal. Bones: No suspicious bony lesions. Visualized sinuses and mastoids appear unremarkable. At least moderate cervical spine degenerative changes are seen. 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 Differential diagnosis includes pleomorphic adenoma (benign mixed tumor) and Warthin's tumor. Differential diagnosis would also include an intraparotid lymph node. Other entities are possible, yet considered to be statistically less likely. Please consider ultrasound with percutaneous biopsy, if clinically appropriate. Dictated by: Hugo Ferrara M.D. on 12/23/2020 at 13:42 Approved by: Hugo Ferrara M.D. on 12/23/2020 at 13:45
[2020-12-23 13:46] LABS: BUN Creatinine Ratio 23.6 (6-22); Blood Urea Nitrogen 21 mg/dL (9-20); Estimated Glomerular Filt Rate > 60.0 mL/min (>60)
== END ==
PROVIDERS: Specialist; Family Provider Internal Medicine; PCP Internal Medicine; Referring Provider Otolaryngology; Visit Provider Otolaryngology
DX: K11.8 Other diseases of salivary glands (principal); N40.1 Benign prostatic hyperplasia with lower urinary tract symptoms; Z01.812 Encounter for preprocedural laboratory examination
CPT/HCPCS: 36415; 70486; 70491; 82565; 84153; 84520

== ENCOUNTER → 2021-01-05 08:50 | Outpatient (CLI) | payer MEDICARE, OTHER, SELFPAY ==
--- NOTE | 2021-01-05 09:54 | DIET.PN ---
DIABETES Nutrition Initial Assessment:? ASSESS:?? Mr. Kc is a 75 yom??referred for type 2 diabetes seen as part of DSME program. He endorses eating a lot of salad and protein and that he feels hungry a lot of the time. Occasionally eats abebe?s killer bread thin sliced, nuts, raisin bran. Admits he has been missing PM metformin on occasion. He is losing weight unintentionally. He has cut out most of his sweets. ??? LABS: Per pt report:? A1c: 12.0 Bedtime B-200 (up to 253) ? MEDS:?? metformin 500mg BID ? DIET: Per 24-hour recall:? B: 2 eggs, sausage, toast or raisin bran L: usually skips D: salad w/ protein Eating Out: 1-2 times/week Changes in Appetite: more hungry due to eating less Nutrition Supplements: vitamin ? Weight: 143lb Height: 70in BMI: ? 20.5 ? Exercise:? golfing, yard work NUTRITION DX 1. Altered Nutrition related labs related to impaired glucose metabolism, lack of previous exposure to accurate nutrition information as evidenced by pt report, dx of diabetes, previous diet high in refined carbohydrates.? INTERVENTION(s): 1. Reviewed pathophysiology of diabetes and impact of nutrition/diet on blood sugar control.? Discussed fed versus non-fed state.?? 2. Discussed the effect of carbohydrates/protein/fat on blood sugar control.? Stressed importance of consistent carbohydrate intake at each meal and provided instructions for recommended servings/portions of carbohydrates/protein per meal. Provided pt with educational material. 3. Reviewed carbohydrate counting and measuring carbohydrate content via serving sizes and reading nutrition labels.? Provided handouts.?? 4. Discussed the difference between simple versus complex carbohydrates and the effect of fiber on blood sugar control.? Discussed various methods to increase fiber content in diet. 5. Stressed importance of meal timing and not going >4-5 hours between meals. Encouraged adding protein to evening snack to support glucose control overnight. Patient agreeable. 6. Recommend monitoring fasting and alternating 2 hr PP mealtime glucose. 7. Discussed importance of medication management as prescribed. 8. Provided list of healthy snack options. MONITOR/EVALUATE: Anticipate good compliance.? Follow-up scheduled after new labs.
== END ==
PROVIDERS: Family Provider Internal Medicine; PCP Internal Medicine; Referring Provider Internal Medicine; Visit Provider Internal Medicine
DX: E11.9 Type 2 diabetes mellitus without complications (principal)
CPT/HCPCS: G0109

== ENCOUNTER → 2021-08-31 11:17 | Outpatient (CLI) | payer MEDICARE, OTHER, SELFPAY ==
--- NOTE | 2021-08-31 | DI.RAD.S_ITS ---
PROCEDURE: XR CHEST 1V INDICATIONS: Unspecified iridocyclitis TECHNIQUE: One view of the chest was acquired. COMPARISON: [facility], CR, XR CHEST 2 VIEWS, 09/21/2017, 13:54. FINDINGS: Surgical changes and devices: None. Lungs and pleura: Lungs are clear. No pleural effusions or pneumothorax. Mediastinum: Mediastinal contours appear normal. Heart size is normal. Bones and chest wall: No suspicious bony lesions. Overlying soft tissues appear unremarkable. IMPRESSION: No acute cardiopulmonary disease process. Dictated by: Milagro Woodruff MD, PhD on 08/31/2021 at 13:28 Approved by: Milagro Woodruff MD, PhD on 08/31/2021 at 13:29
[2021-08-31 14:03] LABS: Prostate Specific Antigen 1.83 ng/mL (0.10-4.00)
[2021-09-01 07:04] LABS: HSV 2 IGG AB < 0.91 index (0.00-0.90)
[2021-09-02 08:24] LABS: QuantiFERON Mitogen Value >10.00 IU/mL (.); QuantiFERON Nil Value 0.03 IU/mL (.); QuantiFERON TB Gold Plus Negative (Negative); QuantiFERON TB1 Ag Value 0.07 IU/mL (.); QuantiFERON TB2 Ag Value 0.07 IU/mL (.)
[2021-09-02 13:41] LABS: ANA Screen, IFA Negative (.)
[2021-09-02 14:26] LABS: Angiotensin Converting Enzyme 86 U/L (14-82)
== END ==
PROVIDERS: Specialist; Family Provider Internal Medicine; PCP Internal Medicine; Referring Provider Ophthalmology; Visit Provider Ophthalmology
DX: N40.1 Benign prostatic hyperplasia with lower urinary tract symptoms (principal); H20.9 Unspecified iridocyclitis; N13.8 Other obstructive and reflux uropathy
CPT/HCPCS: 36415; 71045; 82164; 84153; 86038; 86480; 86695; 86696; 86780

== ENCOUNTER → 2021-12-10 10:56 | Outpatient (CLI) | payer MEDICARE, OTHER, SELFPAY ==
[2021-12-10 11:29] LABS: Add Manual Diff / Slide Review NO; Basophils Absolute Auto 100 /uL (0-100); Basophils Percent Auto 1.1 % (0-2); Eosinophils Absolute Auto 200 /uL (0-450); Eosinophils Percent Auto 2.7 % (2-4); Hematocrit 39.6 % (41-53); Hemoglobin 13.5 g/dL (13.5-17.5); Lymphocytes Absolute Auto 2100 /uL (1100-4500); Lymphocytes Percent Auto 29.4 % (25-40); Mean Corpuscular HGB Conc 34.1 % (30-36); Mean Corpuscular Hemoglobin 32.3 PG (26-34); Mean Corpuscular Volume 94.7 fL (80-100); Monocytes Absolute Auto 700 /uL (0-900); Monocytes Percent Auto 10.2 % (3-14); Neutrophils Absolute Auto 4100 /uL (1500-7000); Neutrophils Percent Auto 56.6 % (50-75); Platelet Count 270 X10^3/uL (150-400); Red Blood Cell Count 4.18 X10^6/uL (4.5-5.9); White Blood Cell Count 7.2 X10^3/uL (4.5-11.0)
[2021-12-10 11:38] LABS: Hemoglobin A1C% w Est Avg Glu 7.7 % (4.0-6.0)
[2021-12-10 11:53] LABS: Alanine Aminotransferase 24 IU/L (<50); Albumin 4.4 g/dL (3.5-5.0); Albumin Globulin Ratio 1.6 (1.0-2.8); Alkaline Phosphatase 95 U/L (38-126); Aspartate Aminotransferase 31 IU/L (17-59); Bilirubin Total 0.5 mg/dL (0.2-1.3); Blood Urea Nitrogen 27 mg/dL (9-20); Calcium 9.6 mg/dL (8.4-10.2); Carbon Dioxide 27 mmol/L (22-32); Chloride 105 mmol/L (98-107); Cholesterol 90 mg/dL (140-199); Estimated Glomerular Filt Rate > 60 mL/min (>60); Globulin 2.8 g/dL (1.7-4.1); Glucose 155 mg/dL (80-110); HDL Cholesterol 30 mg/dL (40-60); HEMOLYSIS < 15 (0-50); LDL Cholesterol Calculated 27 mg/dL (<100); Potassium 4.8 mmol/L (3.4-5.1); Sodium 140 mmol/L (137-145); Total Protein 7.2 g/dL (6.3-8.2); Triglycerides 166 mg/dL (35-150)
[2021-12-10 12:21] LABS: TSH w/ Reflex to FT4 1.12 uIU/mL (0.47-4.68)
== END ==
PROVIDERS: Family Provider Internal Medicine; PCP Internal Medicine; Referring Provider Internal Medicine; Visit Provider Internal Medicine
DX: E78.2 Mixed hyperlipidemia (principal); E11.59 Type 2 diabetes mellitus with other circulatory complications; N40.1 Benign prostatic hyperplasia with lower urinary tract symptoms; I67.9 Cerebrovascular disease, unspecified; N13.8 Other obstructive and reflux uropathy
CPT/HCPCS: 36415; 80053; 80061; 83036; 84153; 84443; 85025

== ENCOUNTER → 2022-03-06 08:57 | Outpatient (CLI) | payer MEDICARE, OTHER, SELFPAY ==
[2022-03-06 10:59] LABS: Hemoglobin A1C% w Est Avg Glu 6.8 % (4.0-6.0)
[2022-03-06 11:00] LABS: Glucose 122 mg/dL (80-110)
== END ==
PROVIDERS: Family Provider Internal Medicine; PCP Internal Medicine; Referring Provider Internal Medicine; Visit Provider Internal Medicine
DX: E11.59 Type 2 diabetes mellitus with other circulatory complications (principal)
CPT/HCPCS: 36415; 82947; 83036

== ENCOUNTER → 2022-03-21 08:42 | Outpatient (CLI) | payer MEDICARE, OTHER, SELFPAY ==
[2022-03-21 11:00] LABS: Prostate Specific Antigen 2.56 ng/mL (0.10-4.00)
== END ==
PROVIDERS: Family Provider Internal Medicine; PCP Internal Medicine; Referring Provider Specialist; Visit Provider Specialist
DX: R97.20 Elevated prostate specific antigen [PSA] (principal)
CPT/HCPCS: 36415; 84153

== ENCOUNTER 2022-07-04 13:00 | Outpatient (RCR) | payer MEDICARE, OTHER, SELFPAY ==
--- NOTE | 2022-05-22 18:18 | PT.OIE ---
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 Past Surgical History (Last Reviewed 03/23/22 @ 08:57 by Elisa Dhillon MD) H/O transurethral destruction of bladder lesion History of right cataract extraction (10/2019) Hx of cystoscopy (12/23/19) Hx of inguinal hernia surgery Hx of left cataract extraction Visit Care Team Role Provider Type Caleb Plata MD Attending Provider Physician Family Provider Primary Care Provider Referring Provider Specialty: Internal Medicine Address: [address] [place] [address] Email: [email or web address] Physical Therapy Initial Evaluation PT-OP-A Visit Information Start: 05/18/22 19:05 Freq: Status: Active Protocol: Document 05/22/22 11:21 LRN (Rec: 05/22/22 12:37 LRN [id number]) Out-Patient Physical Therapy Visit Information Visit Information Visit Type Initial Evaluation Visit Start Time : Visit Stop Time 12:18 Total Visit Minutes 56 Visit Number 1 Evaluation Information Evaluation Date 05/22/22 Precautions Precautions Arthritis, Diabetes type II. 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 Vertigo 6-7 yrs ago. Hx of skin CA near bridge of nose, controled HBP. PT-OP-B Current Condition Start: 05/18/22 19:05 Freq: Status: Active Protocol: Document 05/22/22 11:21 LRN (Rec: 05/22/22 12:37 LRN [id number]) Current Condition History of Current Condition Onset Date February 2022. Current Complaints R lateral forearm pain (at elbow), & L posterior shoulder pain. History of Current Condition Insidious onset of R lateral elbow and L posterior shoulder pain. Pt reports years ago having R tennis elbow and it feels like it came back. Pt states he golfs but it doesn't interfer with golfing. He states his L posterior shoulder pain feels like it is deep inside, but not muscle. Can feel pain on the medial border of the L scapula. R elbow pain is primarily present with twisting of his forearm, palm up position. Prior Treatments and Tests R tennis elbow - mid 80's had PT with good results. Denies imaging. Treatment Goals Patient/Caregiver Goals Pt goal with therapy is eliminate the pain in the R elbow with washing of back, holding cell phone to ear, and reaching for things. Pt goal for L shoulder is to eliminate pain with sleeping, and reaching L arm across the chest and reaching behind, dressing (removing and putting on tops). Prior Functional Status Baseline Function- ADL's Independent Baseline Function- Mobility Independent Baseline Function- Recreation/Hobbies Gardening and Golfing without pain. Baseline Function- Other Slept on L side. Used to wake 1-2x/night. Current Functional Impairments (Reported) Functional Limitations- ADL's R elbow pain with reaching for things out to side, washing back (palm facing his back), pulling weeds/yard work, holding cell phone, . L shoulder pain with reaching for things out to side or reaching for tools in shed outside, dressing, reaching across his chest. Functional Limitations- Other Sleeps mostly on the back because not able to sleep on L side due to L shoulder pain. Wakes 2-3x/night. Personal Factors Other Personal Factors That May Effect Arthritis, Hx of skin CA near Therapy/Recovery bridge of nose. PT-OP-C Subjective Start: 05/18/22 19:05 Freq: Status: Active Protocol: Document 05/22/22 11:21 LRN (Rec: 05/22/22 12:37 LRN [id number]) Patient Questionnaires Quick Dash- Upper Extremity Quick Dash UE Score 22.72 Quick Dash UE Impairment 20 to 39% Impaired (Score 20- 39) OP-PT Pain Assessment Pain Assessment Grid Paper Pain Assessment Grid Completed Yes Location R Elbow Pain Location Details Lateral R elbow Intensity 3 Scale Used Numeric (0 - 10) Description Aching Frequency Intermittent Other Pain Aggravating Factors Moving palm up, washing back. Pain Alleviating Factors Medication Other Pain Alleviating Factors Alleve L shoulder pain Pain Location Details Posterior L shoulder Intensity 4 Scale Used Numeric (0 - 10) Description Aching Frequency Constant Other Pain Aggravating Factors Sleeping on L side and with reaching across chest & dressing. PT-OP-H Neuro Start: 05/18/22 19:05 Freq: Status: Active Protocol: Document 05/22/22 11:21 LRN (Rec: 05/22/22 12:37 LRN [id number]) Sensation Evaluation Gross Sensation Gross Sensation WNL PT-OP-J Posture/Palpation/Skin Start: 05/18/22 19:05 Freq: Status: Active Protocol: Document 05/22/22 11:21 LRN (Rec: 05/22/22 12:37 LRN [id number]) Posture Evaluation Position Standing Head/C-Spine Posture Forward Head T-Spine Posture Rotation Right,Increased Kyphosis L-Spine Posture Flattened,Shifted Right Shoulder Posture (L) Elevated Scapula Posture (L) Retracted,(L) Rotated Down PT-OP-K Range of Motion Start: 05/18/22 19:05 Freq: Status: Active Protocol: Document 05/22/22 11:21 LRN (Rec: 05/22/22 12:37 LRN [id number]) Shoulder Goniometric Range of Motion Shoulder Right Active Shoulder ROM WFL Yes Testing Position Sitting Flexion 145 Extension 67 Abduction 180 External Rotation at 0 degrees Abduction 47 Comments ABD is within the scapular plane. Left Active Shoulder ROM WFL No Testing Position Sitting Flexion 65 Extension 50 Abduction 107 Horizontal Adduction 120 External Rotation at 0 degrees Abduction 43 Elbow/Forearm Range of Motion Elbow/Forearm Left Active Elbow/Forearm ROM WFL Yes ROM Testing Position Sitting Elbow Flexion (degrees) 142 Elbow Extension (degrees) 0 Pronation (degrees) 90 Supination (degrees) 75 Comments Pain with flex & supination. Right Active Elbow/Forearm ROM WFL No ROM Testing Position Sitting Elbow Flexion (degrees) 122 Elbow Extension (degrees) 0 Pronation (degrees) 90 Supination (degrees) 73 PT-OP-L Special Tests Start: 05/18/22 19:05 Freq: Status: Active Protocol: Document 05/22/22 11:21 LRN (Rec: 05/22/22 12:37 LRN [id number]) Special Tests Cervical Spine Special Tests Upper Limb Tension Test Test Results + Radial nerve Comments Pain at Proximal R wrist extensors Traction Test Results + response Comments Relieves R elbow pain with supination Spurling's Test Test Results Positive Comments Head L SB increases R elbow pain. Shoulder Special Tests IR/Horizontal ADD Impingement Test Results + Left shoulder Comments Pain is on the return from ADD Elevation Impingement Test Results + Left shoulder Comments Pain in Supraspinatus ms belly and subacromial Elbow Special Tests Medial Epicondylitis Test Results - R elbow Lateral Epicondylitis Flexed Test Results + R elbow Comments Pain at wrist extensor muscle bellies. PT-OP-M Strength Start: 05/18/22 19:05 Freq: Status: Active Protocol: Document 05/22/22 11:21 LRN (Rec: 05/22/22 12:37 LRN [id number]) Shoulder Strength Shoulder Manual Muscle Testing Right Comments Generally 5/5 Left Flexion 2 Poor Extension 5 Normal Abduction (C5) 2 Poor Adduction 5 Normal External Rotation 4 Good Internal Rotation 3+ Fair+ Horizontal Abduction 5 Normal Horizontal Adduction 4+ Good+ Elbow/Forearm Strength Elbow and Forearm Manual Muscle Testing Right Flexion (C6) 5 Normal Extension (C7) 4+ Good+ Pronation 5 Normal Supination 3- Fair- Left Flexion (C6) 5 Normal Extension (C7) 5 Normal Pronation 5 Normal Supination 5 Normal Hand Deployment Specialist/Pinch Strength Hand Dominance Hand Dominance Left PT-OP-Q Treatments Start: 05/18/22 19:05 Freq: Status: Active Protocol: Document 05/22/22 11:21 LRN (Rec: 05/22/22 12:37 LRN [id number]) Therapeutic Exercises Supine Exercises L UT stretch Supine Exercise Name L UT manual stretch Side left Reps/Minutes 3' Manual C. tx Supine Exercise Name Manual C. tx Reps/Minutes 3' Self-Care/Home Management Treatment Education Patient Education Home Exercise Program,Pain Management Other Education Discussed results of evaluation, goals at length, and plan of care (POC). Pt agreeable to goals and POC. Activities Self-Care/Home Management Activities I/S pt in self care of self massage to R wrist extensors f /b gentle passive stretch, ending in use of cold pack for pain managment. I/S pt in L UT stretch with C. SB. PT-OP-T Assessment and Plan Start: 05/18/22 19:05 Freq: Status: Active Protocol: Document 05/22/22 11:21 LRN (Rec: 05/22/22 12:37 LRN [id number]) Physical Therapy Assessment Rehab Potential Rehabilitation Potential Good Evaluation Complexity Number of Personal Factors/Comorbidities 1-2 Number of Body Systems Impaired 4 or More Clinical Presentation at Evaluation Evolving Impairments Impairments Pain,Posture,ROM,Soft Tissue Mobility,Strength Goals Three Impairment R lateral elbow pain. Short Term Goal (STG) Pt will be educated in a self care HEP of STM, stretch, light strengthening and self care pain management techniques (cold packs). STG Duration 06/12/22 [facility]pc Goal (LTG) Eliminate R elbow pain with washing of back, holding cell phone to ear, and reaching for things out to side. LTG Duration 08/20/22 Two Impairment L shoulder pain rated 4/10 Short Term Goal (STG) Decrease L posterior shoulder pain to 2/10 with improved ability to sleep at night, waking at prior level of function of 1-2x/night, not due to pain. STG Duration 07/08/22 Fpc Goal (LTG) Eliminate pain with reaching L arm across the chest, reaching behind, and with dressing (removing and putting on tops). LTG Duration 08/20/22 One Impairment Lacks appropriate self care HEP. Short Term Goal (STG) Pt will be educated in proper head/neck/upper back posture to minimized radicular pain. STG Duration 06/05/22 Fpc Goal (LTG) Pt will be independent in a self care HEP of neck, shoulder and elbow ex's to manage his pain and condition. LTG Duration 08/20/22 Assessment Summary Assessment Pt presents with signs and symptoms of L shoulder impingement involving the rotator cuff muscles, but today more notably the supraspinatus and subscapularis ms with soft tissue dysfunction of scapular stabilizers. He demonstrates signs of cervical involvement with reduction of scapular pain with gentle manual traction. He demonstrates R elbow medial epicondylitis with soft tissue dysufunction and a mechanical cervical component. In supine with manual cervical traction his R forearm pain with supination was eliminated, but tightness and tenderness in the wrist extensors remained present. The pt will benefit from skilled physical therapy to achieve the above stated goals . Physical Therapy Plan Frequency and Duration Frequency of Treatment 2x/Week Plan of Care Start Date 05/22/22 Plan of Care End Date 08/20/22 Therapeutic Interventions Therapeutic Interventions Home Exercise Program,Joint Mobilizations,Manual Therapy, Neuromuscular Re-education, Patient/Caregiver Education, Self-Care/Home Management,Soft Tissue Mobilization, Therapeutic Activities, Therapeutic Exercises Modalities Cold Pack/Ice Massage,Electric Stimulation,Hot Packs, Iontophoresis,Ultrasound Next Visit Focus/Plan Next Note Type Treatment Note Next Visit Plan Assess UE DTR's and machine cloth trimmer strength, wrist mobility/ strength, Apley's Test for functionial mobility, and Vertebral Artery bilaterally. If [facility] tests are negative: Manual C.tx and neck stretches (UT & rotators), L shoulder: JMT, ROM, and strengthening, R elbow: STM, radial n stretch . Education: posture -day & night, pain managment, HEP: of L shoulder and R elbow care.
--- NOTE | 2022-05-22 18:19 | PT.OPPOC ---
Physical, Occupational & Speech Therapy At [facility] Current Diagnoses Pain in left shoulder (05/22/22) Pain in right elbow (05/22/22) Cervical disc disorder with radiculopathy, unspecified cervical region (05/22/22) Muscle weakness (generalized) (05/22/22) Visit Care Team Role Provider Type Claeb Plata MD Attending Provider Physician Family Provider Primary Care Provider Referring Provider Specialty: Internal Medicine Address: [address] [place] [address], [facility] Email: [email or web address] Plan Of Care PT-OP-T Assessment and Plan Start: 05/18/22 19:05 Freq: Status: Active Protocol: Document 05/22/22 11:21 LRN (Rec: 05/22/22 12:37 LRN [id number]) Physical Therapy Assessment Rehab Potential Rehabilitation Potential Good Evaluation Complexity Number of Personal Factors/Comorbidities 1-2 Number of Body Systems Impaired 4 or More Clinical Presentation at Evaluation Evolving Impairments Impairments Pain,Posture,ROM,Soft Tissue Mobility,Strength Goals Three Impairment R lateral elbow pain. Short Term Goal (STG) Pt will be educated in a self care HEP of STM, stretch, light strengthening and self care pain management techniques (cold packs). STG Duration 06/12/22 M[facility] Goal (LTG) Eliminate R elbow pain with washing of back, holding cell phone to ear, and reaching for things out to side. LTG Duration 08/20/22 Two Impairment L shoulder pain rated 4/10 Short Term Goal (STG) Decrease L posterior shoulder pain to 2/10 with improved ability to sleep at night, waking at prior level of function of 1-2x/night, not due to pain. STG Duration 07/08/22 M[facility] Goal (LTG) Eliminate pain with reaching L arm across the chest, reaching behind, and with dressing (removing and putting on tops). LTG Duration 08/20/22 One Impairment Lacks appropriate self care HEP. Short Term Goal (STG) Pt will be educated in proper head/neck/upper back posture to minimized radicular pain. STG Duration 06/05/22 Mcc Goal (LTG) Pt will be independent in a self care HEP of neck, shoulder and elbow ex's to manage his pain and condition. LTG Duration 08/20/22 Assessment Summary Assessment Pt presents with signs and symptoms of L shoulder impingement involving the rotator cuff muscles, but today more notably the supraspinatus and subscapularis ms with soft tissue dysfunction of scapular stabilizers. He demonstrates signs of cervical involvement with reduction of scapular pain with gentle manual traction. He demonstrates R elbow medial epicondylitis with soft tissue dysufunction and a mechanical cervical component. In supine with manual cervical traction his R forearm pain with supination was eliminated, but tightness and tenderness in the wrist extensors remained present. The pt will benefit from skilled physical therapy to achieve the above stated goals . Physical Therapy Plan Frequency and Duration Frequency of Treatment 2x/Week Plan of Care Start Date 05/22/22 Plan of Care End Date 08/20/22 Therapeutic Interventions Therapeutic Interventions Home Exercise Program,Joint Mobilizations,Manual Therapy, Neuromuscular Re-education, Patient/Caregiver Education, Self-Care/Home Management,Soft Tissue Mobilization, Therapeutic Activities, Therapeutic Exercises Modalities Cold Pack/Ice Massage,Electric Stimulation,Hot Packs, Iontophoresis,Ultrasound Next Visit Focus/Plan Next Note Type Treatment Note Next Visit Plan Assess UE DTR's and local intermodal truck driver strength, wrist mobility/ strength, Apley's Test for functionial mobility, and Vertebral Artery bilaterally. If [facility] tests are negative: Manual C.tx and neck stretches (UT & rotators), L shoulder: JMT, ROM, and strengthening, R elbow: STM, radial n stretch . Education: posture -day & night, pain managment, HEP: of L shoulder and R elbow care. Plan of Care Dates Plan of Care Start Date 05/22/22 Plan of Care End Date 08/20/22 Electronically Signed by: Amanda Magana, PT 05/22/22 6725 If you are in agreement with this Plan of Care, please return a signed and dated copy. I have reviewed this Plan of Care and certify that the skilled therapy services above are required to meet the patient?s needs. Physician Signature Date Printed Name and Credentials Clinical Instructor Signature Printed Name and Credentials
--- NOTE | 2022-05-26 12:20 | PT.OTN ---
Current Diagnoses Pain in left shoulder (05/26/22) Pain in right elbow (05/26/22) Cervical disc disorder with radiculopathy, unspecified cervical region (05/26/22) Muscle weakness (generalized) (05/26/22) Physical Therapy Treatment Note PT-OP-A Visit Information Start: 05/18/22 19:05 Freq: Status: Active Protocol: Document 05/26/22 11:23 LRN (Rec: 05/26/22 12:16 LRN [id number]) Out-Patient Physical Therapy Visit Information Visit Information Visit Type Treatment Note Visit Start Time 11:23 Visit Stop Time 12:02 Total Visit Minutes 39 Visit Number 2 Evaluation Information Evaluation Date 05/22/22 Precautions Precautions Arthritis, Diabetes type II. 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 Vertigo 6-7 yrs ago. Hx of skin CA near bridge of nose, controled HBP. PT-OP-B Current Condition Start: 05/18/22 19:05 Freq: Status: Active Protocol: Document 05/22/22 11:21 LRN (Rec: 05/22/22 12:37 LRN [id number]) Current Condition History of Current Condition Onset Date February 2022. Current Complaints R lateral forearm pain (at elbow), & L posterior shoulder pain. History of Current Condition Insidious onset of R lateral elbow and L posterior shoulder pain. Pt reports years ago having R tennis elbow and it feels like it came back. Pt states he golfs but it doesn't interfer with golfing. He states his L posterior shoulder pain feels like it is deep inside, but not muscle. Can feel pain on the medial border of the L scapula. R elbow pain is primarily present with twisting of his forearm, palm up position. Prior Treatments and Tests R tennis elbow - mid 80's had PT with good results. Denies imaging. Treatment Goals Patient/Caregiver Goals Pt goal with therapy is eliminate the pain in the R elbow with washing of back, holding cell phone to ear, and reaching for things. Pt goal for L shoulder is to eliminate pain with sleeping, and reaching L arm across the chest and reaching behind, dressing (removing and putting on tops). Prior Functional Status Baseline Function- ADL's Independent Baseline Function- Mobility Independent Baseline Function- Recreation/Hobbies Gardening and Golfing without pain. Baseline Function- Other Slept on L side. Used to wake 1-2x/night. Current Functional Impairments (Reported) Functional Limitations- ADL's R elbow pain with reaching for things out to side, washing back (palm facing his back), pulling weeds/yard work, holding cell phone, . L shoulder pain with reaching for things out to side or reaching for tools in shed outside, dressing, reaching across his chest. Functional Limitations- Other Sleeps mostly on the back because not able to sleep on L side due to L shoulder pain. Wakes 2-3x/night. Personal Factors Other Personal Factors That May Effect Arthritis, Hx of skin CA near Therapy/Recovery bridge of nose. PT-OP-C Subjective Start: 05/18/22 19:05 Freq: Status: Active Protocol: Document 05/26/22 11:23 LRN (Rec: 05/26/22 12:16 LRN [id number]) OP-PT Subjective Patient Comments Patient Comments Still hurts PT-OP-E Functional Tests Start: 05/18/22 19:05 Freq: Status: Active Protocol: Document 05/26/22 11:23 LRN (Rec: 05/26/22 12:16 LRN [id number]) Functional Tests Apley's Scratch Test Action 1- Left Lateral R shoulder Action 1- Right Posterior L Scapula Action 2- Left T3 Action 2- Right T3 Action 3- Left T9 Action 3- Right T10 PT-OP-H Neuro Start: 05/18/22 19:05 Freq: Status: Active Protocol: Document 05/26/22 11:23 LRN (Rec: 05/26/22 12:18 LRN [id number]) Deep Tendon Reflex & Clonus Assessment Deep Tendon Reflex Bilateral Tricep Deep Tendon Reflex 1+ Diminished Bilateral Bicep Deep Tendon Reflex 2+ Normal PT-OP-J Posture/Palpation/Skin Start: 05/18/22 19:05 Freq: Status: Active Protocol: Document 05/22/22 11:21 LRN (Rec: 05/22/22 12:37 LRN [id number]) Posture Evaluation Position Standing Head/C-Spine Posture Forward Head T-Spine Posture Rotation Right,Increased Kyphosis L-Spine Posture Flattened,Shifted Right Shoulder Posture (L) Elevated Scapula Posture (L) Retracted,(L) Rotated Down PT-OP-K Range of Motion Start: 05/18/22 19:05 Freq: Status: Active Protocol: Document 05/26/22 11:23 LRN (Rec: 05/26/22 12:16 LRN [id number]) Wrist Goniometric Range of Motion ROM Limitations Comments Bilateral wrist AROM is WFL for pt's age. PT-OP-L Special Tests Start: 05/18/22 19:05 Freq: Status: Active Protocol: Document 05/26/22 11:23 LRN (Rec: 05/26/22 12:20 LRN [id number]) Special Tests Cervical Spine Special Tests Vertebral Artery Test Results Negative bilaterally Comments Cervical mobility for testing was extremely limited. PT-OP-M Strength Start: 05/18/22 19:05 Freq: Status: Active Protocol: Document 05/26/22 11:23 LRN (Rec: 05/26/22 12:16 LRN [id number]) Wrist Strength Wrist Manual Muscle Testing Right Flexion (C7) 5 Normal Extension (C6) 5 Normal Ulnar Deviation 5 Normal Radial Deviation 5 Normal Left Flexion (C7) 4+ Good+ Extension (C6) 4+ Good+ Ulnar Deviation 5 Normal Radial Deviation 5 Normal Hand Display Carver/Pinch Strength Hand Dominance Hand Dominance Left Hand Strength Left Comments KGS: 38, 40, 38 (Standard Display Carver Strength Norm for 75+ yo males is 24.9 kg) Right Comments KGS: 32, 30, 30 (Standard Display Carver Strength Norm for 75+ yo males is 29.8 kg) PT-OP-Q Treatments Start: 05/18/22 19:05 Freq: Status: Active Protocol: Document 05/26/22 11:23 LRN (Rec: 05/26/22 12:16 LRN [id number]) Therapeutic Exercises Supine Exercises Neck PROM Supine Exercise Name C/S Rot stretch f/b VA testing Side bilateral Shoulder Horiz AD Supine Exercise Name MWM (PA of L humerus)with Shoulder Horiz AD Side left Reps/Minutes 5' [place] wipe Supine Exercise Name Shoulder ER/IR Side left Reps/Minutes 30x Shoulder ROM Supine Exercise Name Shoulder ER stretch Side left L UT stretch Supine Exercise Name L UT manual stretch Side left Reps/Minutes 3' Manual C. tx Supine Exercise Name Manual C. tx Reps/Minutes 3' Sitting Exercises Shoulder ER strengthening Sitting Exercise Name Shoulder ER strengthening ( elbow in by side) Side bilateral Equipment Used Lev 1 TB Reps/Minutes 15x Wrist Flex/Ext Sitting Exercise Name Flex/Ext/UD/RD AROM & isometrics Side bilateral Reps/Minutes 2x each Comments MMT taken Self-Care/Home Management Treatment Education Patient Education Home Exercise Program Activities Self-Care/Home Management Activities I/S pt in HEP: shoulder ER/IR strengthening. Issued Lev 1 TBand. PT-OP-T Assessment and Plan Start: 05/18/22 19:05 Freq: Status: Active Protocol: Document 05/26/22 11:23 LRN (Rec: 05/26/22 12:16 LRN [id number]) Physical Therapy Assessment Goals Three Impairment R lateral elbow pain. Short Term Goal (STG) Pt will be educated in a self care HEP of STM, stretch, light strengthening and self care pain management techniques (cold packs). STG Duration 06/12/22 Multimedia Production Assistant Goal (LTG) Eliminate R elbow pain with washing of back, holding cell phone to ear, and reaching for things out to side. LTG Duration 08/20/22 Two Impairment L shoulder pain rated 4/10 Short Term Goal (STG) Decrease L posterior shoulder pain to 2/10 with improved ability to sleep at night, waking at prior level of function of 1-2x/night, not due to pain. STG Duration 07/08/22 Senior Care Goal (LTG) Eliminate pain with reaching L arm across the chest, reaching behind, and with dressing (removing and putting on tops). LTG Duration 08/20/22 One Impairment Lacks appropriate self care HEP. Short Term Goal (STG) Pt will be educated in proper head/neck/upper back posture to minimized radicular pain. STG Duration 06/05/22 Senior Care Goal (LTG) Pt will be independent in a self care HEP of neck, shoulder and elbow ex's to manage his pain and condition. 05/26/22: HEP: TBand ER strengthening. LTG Duration 08/20/22 (05/26/22: Progressing) Assessment Summary Assessment Pt with L shoulder impingement involving the rotator cuff muscles, notably the supraspinatus and subscapularis, and weakness of scapular stabilizers, & R elbow medial epicondylitis with soft tissue dysufunction (no cervical invovlement noted today). Pt does not have weakness in UE's; therefore pt doesn't appear to have neck involvement. Pt limited with ability to reach over his R shoulder with L arm. 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 His L shoulder mobility is limited with reaching over opposite shoulder. MWM was helpful to relieve pain in sup for horiz shoulder AD to 90 deg's. Physical Therapy Plan Frequency and Duration Frequency of Treatment 2x/Week Plan of Care Start Date 05/22/22 Plan of Care End Date 08/20/22 Next Visit Focus/Plan Next Note Type Treatment Note Next Visit Plan L RC and scapular stabilization. R Elbow STM, ROM and strengthening for medial epicondylitis and monitor for cervical component. Manual C.tx and neck stretches (UT & rotators), L shoulder: JMT, ROM, and strengthening, R elbow: STM, radial n stretch . Education: posture -day & night, pain managment, HEP: of L shoulder and R elbow care.
--- NOTE | 2022-05-29 16:29 | PT.OTN ---
Current Diagnoses Pain in left shoulder (05/29/22) Pain in right elbow (05/29/22) Cervical disc disorder with radiculopathy, unspecified cervical region (05/29/22) Muscle weakness (generalized) (05/29/22) Physical Therapy Treatment Note PT-OP-A Visit Information Start: 05/18/22 19:05 Freq: Status: Active Protocol: Document 05/29/22 10:35 LRN (Rec: 05/29/22 11:19 LRN [id number]) Out-Patient Physical Therapy Visit Information Visit Information Visit Type Treatment Note Visit Start Time 10:35 Visit Stop Time 11:15 Total Visit Minutes 40 Visit Number 3 Evaluation Information Evaluation Date 05/22/22 Precautions Precautions Arthritis, Diabetes type II. 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 Vertigo 6-7 yrs ago. Hx of skin CA near bridge of nose, controled HBP. PT-OP-B Current Condition Start: 05/18/22 19:05 Freq: Status: Active Protocol: Document 05/22/22 11:21 LRN (Rec: 05/22/22 12:37 LRN [id number]) Current Condition History of Current Condition Onset Date February 2022. Current Complaints R lateral forearm pain (at elbow), & L posterior shoulder pain. History of Current Condition Insidious onset of R lateral elbow and L posterior shoulder pain. Pt reports years ago having R tennis elbow and it feels like it came back. Pt states he golfs but it doesn't interfer with golfing. He states his L posterior shoulder pain feels like it is deep inside, but not muscle. Can feel pain on the medial border of the L scapula. R elbow pain is primarily present with twisting of his forearm, palm up position. Prior Treatments and Tests R tennis elbow - mid 80's had PT with good results. Denies imaging. Treatment Goals Patient/Caregiver Goals Pt goal with therapy is eliminate the pain in the R elbow with washing of back, holding cell phone to ear, and reaching for things. Pt goal for L shoulder is to eliminate pain with sleeping, and reaching L arm across the chest and reaching behind, dressing (removing and putting on tops). Prior Functional Status Baseline Function- ADL's Independent Baseline Function- Mobility Independent Baseline Function- Recreation/Hobbies Gardening and Golfing without pain. Baseline Function- Other Slept on L side. Used to wake 1-2x/night. Current Functional Impairments (Reported) Functional Limitations- ADL's R elbow pain with reaching for things out to side, washing back (palm facing his back), pulling weeds/yard work, holding cell phone, . L shoulder pain with reaching for things out to side or reaching for tools in shed outside, dressing, reaching across his chest. Functional Limitations- Other Sleeps mostly on the back because not able to sleep on L side due to L shoulder pain. Wakes 2-3x/night. Personal Factors Other Personal Factors That May Effect Arthritis, Hx of skin CA near Therapy/Recovery bridge of nose. PT-OP-C Subjective Start: 05/18/22 19:05 Freq: Status: Active Protocol: Document 05/29/22 10:35 LRN (Rec: 05/29/22 11:19 LRN [id number]) OP-PT Subjective Patient Comments Patient Comments L shoulder hurts less, but when moving it in front of his body it still hurts. R elbow still is sore. PT-OP-E Functional Tests Start: 05/18/22 19:05 Freq: Status: Active Protocol: Document 05/26/22 11:23 LRN (Rec: 05/26/22 12:16 LRN [id number]) Functional Tests Apley's Scratch Test Action 1- Left Lateral R shoulder Action 1- Right Posterior L Scapula Action 2- Left T3 Action 2- Right T3 Action 3- Left T9 Action 3- Right T10 PT-OP-H Neuro Start: 05/18/22 19:05 Freq: Status: Active Protocol: Document 05/26/22 11:23 LRN (Rec: 05/26/22 12:18 LRN [id number]) Deep Tendon Reflex & Clonus Assessment Deep Tendon Reflex Bilateral Tricep Deep Tendon Reflex 1+ Diminished Bilateral Bicep Deep Tendon Reflex 2+ Normal PT-OP-J Posture/Palpation/Skin Start: 05/18/22 19:05 Freq: Status: Active Protocol: Document 05/22/22 11:21 LRN (Rec: 05/22/22 12:37 LRN [id number]) Posture Evaluation Position Standing Head/C-Spine Posture Forward Head T-Spine Posture Rotation Right,Increased Kyphosis L-Spine Posture Flattened,Shifted Right Shoulder Posture (L) Elevated Scapula Posture (L) Retracted,(L) Rotated Down PT-OP-K Range of Motion Start: 05/18/22 19:05 Freq: Status: Active Protocol: Document 05/26/22 11:23 LRN (Rec: 05/26/22 12:16 LRN [id number]) Wrist Goniometric Range of Motion ROM Limitations Comments Bilateral wrist AROM is WFL for pt's age. PT-OP-L Special Tests Start: 05/18/22 19:05 Freq: Status: Active Protocol: Document 05/26/22 11:23 LRN (Rec: 05/26/22 12:20 LRN [id number]) Special Tests Cervical Spine Special Tests Vertebral Artery Test Results Negative bilaterally Comments Cervical mobility for testing was extremely limited. PT-OP-M Strength Start: 05/18/22 19:05 Freq: Status: Active Protocol: Document 05/26/22 11:23 LRN (Rec: 05/26/22 12:16 LRN [id number]) Wrist Strength Wrist Manual Muscle Testing Right Flexion (C7) 5 Normal Extension (C6) 5 Normal Ulnar Deviation 5 Normal Radial Deviation 5 Normal Left Flexion (C7) 4+ Good+ Extension (C6) 4+ Good+ Ulnar Deviation 5 Normal Radial Deviation 5 Normal Hand Detective Narcotics And Vice/Pinch Strength Hand Dominance Hand Dominance Left Hand Strength Left Comments KGS: 38, 40, 38 (Standard Detective Narcotics And Vice Strength Norm for 75+ yo males is 24.9 kg) Right Comments KGS: 32, 30, 30 (Standard Detective Narcotics And Vice Strength Norm for 75+ yo males is 29.8 kg) PT-OP-Q Treatments Start: 05/18/22 19:05 Freq: Status: Active Protocol: Document 05/29/22 10:35 LRN (Rec: 05/29/22 11:19 LRN [id number]) Therapeutic Exercises Supine Exercises Wrist flex stretch Supine Exercise Name Wrist flex stretch Side right Reps/Minutes 10 SH Standing Exercises Scapular depression Standing Exercise Name Scapular depression training Side bilateral Equipment Used Mirror Reps/Minutes 10' Comments Phys & visual cueing needed to improve awareness of scap depress contract Shoulder Ext Standing Exercise Name Shoulder Ext Side bilateral Equipment Used Lev 1 TB Reps/Minutes 15x 2 Comments Cuing for scapular retraction & depression Shoulder ER Standing Exercise Name ER strengthening in painfree range Side left Equipment Used Lev 1 TB Reps/Minutes 15x 3 Shoulder IR Standing Exercise Name IR strengthening Side left Equipment Used Lev 1 TB Reps/Minutes 15x 3 Manual Therapy Treatment Soft Tissue Mobilization R lateral wrist extensors Body Location R lateral wrist extensors Mobilization Type Strumming Intensity/Depth Moderate Body Position Supine Joint Mobilizations R radius Joint R radius Direction Distal to Proximal glide Grade II Body Position Supine Reps/Duration 2' Comments Elbow in full ext. PT-OP-R Modalities Start: 05/18/22 19:05 Freq: Status: Active Protocol: Document 05/29/22 10:35 LRN (Rec: 05/29/22 11:19 LRN [id number]) Ultrasound Therapy Treatment R wrist extensors at lateral epicondyle Treatment Duration (minutes) 4 Patient Position Supine Coupling Medium Ultrasound Gel Applicator Size (cm2) 2 Frequency Setting (mHz) 3 Mode Setting Pulsed Duty Cycle 10% Intensity Setting (w/cm2) 0.8 Comments Pt felt tingling and vibration ; therefore discontinued treatment due to unable to reduce intensity farther. PT-OP-T Assessment and Plan Start: 05/18/22 19:05 Freq: Status: Active Protocol: Document 05/29/22 10:35 LRN (Rec: 05/29/22 11:19 LRN [id number]) Physical Therapy Assessment Goals Three Impairment R lateral elbow pain. Short Term Goal (STG) Pt will be educated in a self care HEP of STM, stretch, light strengthening and self care pain management techniques (cold packs). STG Duration 06/12/22 Retirement Goal (LTG) Eliminate R elbow pain with washing of back, holding cell phone to ear, and reaching for things out to side. LTG Duration 08/20/22 Two Impairment L shoulder pain rated 4/10 Short Term Goal (STG) Decrease L posterior shoulder pain to 2/10 with improved ability to sleep at night, waking at prior level of function of 1-2x/night, not due to pain. STG Duration 07/08/22 Retirement Goal (LTG) Eliminate pain with reaching L arm across the chest, reaching behind, and with dressing (removing and putting on tops). LTG Duration 08/20/22 One Impairment Lacks appropriate self care HEP. Short Term Goal (STG) Pt will be educated in proper head/neck/upper back posture to minimized radicular pain. STG Duration 06/05/22 Retirement Goal (LTG) Pt will be independent in a self care HEP of neck, shoulder and elbow ex's to manage his pain and condition. 05/26/22: HEP: TBand ER strengthening. LTG Duration 08/20/22 (05/26/22: Progressing) Assessment Summary Assessment Pt able to perform shoulder strengthening without pain and limiting mobility with ER. Decrease in R elbow pain with active wrist extension after STM and Radial-lateral epicondyle JMT. Physical Therapy Plan Frequency and Duration Frequency of Treatment 2x/Week Plan of Care Start Date 05/22/22 Plan of Care End Date 08/20/22 Next Visit Focus/Plan Next Note Type Treatment Note Next Visit Plan L RC and scapular stabilization. Assess response to R elbow STM and scapular strengthening. Cont: R Elbow STM, JMT of radial lateral epicondyle, R wrist ROM, radial n stretch, and strengthening for medial epicondylitis and monitor for cervical component. Progress towards wrist extensor stretching, light strengthening Education: posture -day & night, pain managment, and Self STM. As needed: Manual C.tx and neck stretches (UT & rotators) , L shoulder: JMT, ROM, and strengthening, HEP: of L shoulder and R elbow care.
--- NOTE | 2022-06-01 17:05 | PT.OTN ---
Current Diagnoses Pain in left shoulder (06/01/22) Pain in right elbow (06/01/22) Cervical disc disorder with radiculopathy, unspecified cervical region (06/01/22) Muscle weakness (generalized) (06/01/22) Physical Therapy Treatment Note PT-OP-A Visit Information Start: 05/18/22 19:05 Freq: Status: Active Protocol: Document 06/01/22 10:37 LRN (Rec: 06/01/22 11:22 LRN [id number]) Out-Patient Physical Therapy Visit Information Visit Information Visit Type Treatment Note Visit Start Time 10:37 Visit Stop Time 11:17 Total Visit Minutes 40 Visit Number 4 Evaluation Information Evaluation Date 05/22/22 Precautions Precautions Arthritis, Diabetes type II. 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 Vertigo 6-7 yrs ago. Hx of skin CA near bridge of nose, controled HBP. PT-OP-B Current Condition Start: 05/18/22 19:05 Freq: Status: Active Protocol: Document 05/22/22 11:21 LRN (Rec: 05/22/22 12:37 LRN [id number]) Current Condition History of Current Condition Onset Date February 2022. Current Complaints R lateral forearm pain (at elbow), & L posterior shoulder pain. History of Current Condition Insidious onset of R lateral elbow and L posterior shoulder pain. Pt reports years ago having R tennis elbow and it feels like it came back. Pt states he golfs but it doesn't interfer with golfing. He states his L posterior shoulder pain feels like it is deep inside, but not muscle. Can feel pain on the medial border of the L scapula. R elbow pain is primarily present with twisting of his forearm, palm up position. Prior Treatments and Tests R tennis elbow - mid 80's had PT with good results. Denies imaging. Treatment Goals Patient/Caregiver Goals Pt goal with therapy is eliminate the pain in the R elbow with washing of back, holding cell phone to ear, and reaching for things. Pt goal for L shoulder is to eliminate pain with sleeping, and reaching L arm across the chest and reaching behind, dressing (removing and putting on tops). Prior Functional Status Baseline Function- ADL's Independent Baseline Function- Mobility Independent Baseline Function- Recreation/Hobbies Gardening and Golfing without pain. Baseline Function- Other Slept on L side. Used to wake 1-2x/night. Current Functional Impairments (Reported) Functional Limitations- ADL's R elbow pain with reaching for things out to side, washing back (palm facing his back), pulling weeds/yard work, holding cell phone, . L shoulder pain with reaching for things out to side or reaching for tools in shed outside, dressing, reaching across his chest. Functional Limitations- Other Sleeps mostly on the back because not able to sleep on L side due to L shoulder pain. Wakes 2-3x/night. Personal Factors Other Personal Factors That May Effect Arthritis, Hx of skin CA near Therapy/Recovery bridge of nose. PT-OP-C Subjective Start: 05/18/22 19:05 Freq: Status: Active Protocol: Document 06/01/22 10:37 LRN (Rec: 06/01/22 11:22 LRN [id number]) OP-PT Subjective Patient Comments Patient Comments States he can feel discofort in the UT region, no pain. PT-OP-E Functional Tests Start: 05/18/22 19:05 Freq: Status: Active Protocol: Document 05/26/22 11:23 LRN (Rec: 05/26/22 12:16 LRN [id number]) Functional Tests Apley's Scratch Test Action 1- Left Lateral R shoulder Action 1- Right Posterior L Scapula Action 2- Left T3 Action 2- Right T3 Action 3- Left T9 Action 3- Right T10 PT-OP-H Neuro Start: 05/18/22 19:05 Freq: Status: Active Protocol: Document 05/26/22 11:23 LRN (Rec: 05/26/22 12:18 LRN [id number]) Deep Tendon Reflex & Clonus Assessment Deep Tendon Reflex Bilateral Tricep Deep Tendon Reflex 1+ Diminished Bilateral Bicep Deep Tendon Reflex 2+ Normal PT-OP-J Posture/Palpation/Skin Start: 05/18/22 19:05 Freq: Status: Active Protocol: Document 05/22/22 11:21 LRN (Rec: 05/22/22 12:37 LRN [id number]) Posture Evaluation Position Standing Head/C-Spine Posture Forward Head T-Spine Posture Rotation Right,Increased Kyphosis L-Spine Posture Flattened,Shifted Right Shoulder Posture (L) Elevated Scapula Posture (L) Retracted,(L) Rotated Down PT-OP-K Range of Motion Start: 05/18/22 19:05 Freq: Status: Active Protocol: Document 05/26/22 11:23 LRN (Rec: 05/26/22 12:16 LRN [id number]) Wrist Goniometric Range of Motion ROM Limitations Comments Bilateral wrist AROM is WFL for pt's age. PT-OP-L Special Tests Start: 05/18/22 19:05 Freq: Status: Active Protocol: Document 05/26/22 11:23 LRN (Rec: 05/26/22 12:20 LRN [id number]) Special Tests Cervical Spine Special Tests Vertebral Artery Test Results Negative bilaterally Comments Cervical mobility for testing was extremely limited. PT-OP-M Strength Start: 05/18/22 19:05 Freq: Status: Active Protocol: Document 05/26/22 11:23 LRN (Rec: 05/26/22 12:16 LRN [id number]) Wrist Strength Wrist Manual Muscle Testing Right Flexion (C7) 5 Normal Extension (C6) 5 Normal Ulnar Deviation 5 Normal Radial Deviation 5 Normal Left Flexion (C7) 4+ Good+ Extension (C6) 4+ Good+ Ulnar Deviation 5 Normal Radial Deviation 5 Normal Hand Planning Advisor/Pinch Strength Hand Dominance Hand Dominance Left Hand Strength Left Comments KGS: 38, 40, 38 (Standard Planning Advisor Strength Norm for 75+ yo males is 24.9 kg) Right Comments KGS: 32, 30, 30 (Standard Planning Advisor Strength Norm for 75+ yo males is 29.8 kg) PT-OP-Q Treatments Start: 05/18/22 19:05 Freq: Status: Active Protocol: Document 06/01/22 10:37 LRN (Rec: 06/01/22 11:22 LRN [id number]) Therapeutic Exercises Supine Exercises Neck Elongation Supine Exercise Name Neck Elongation Reps/Minutes 5SH x 10 Standing Exercises Scapular depression Standing Exercise Name Scapular depression Side bilateral Equipment Used Mirror Reps/Minutes 15x Comments Much Phys & visual cueing to improve awareness of scap depress contract Shoulder Ext Standing Exercise Name Shoulder Ext Side bilateral Equipment Used Lev 2 TB Reps/Minutes 10x 3 Comments Much Cuing for scapular retraction & depression Shoulder ER Standing Exercise Name ER strengthening in painfree range Side left Equipment Used Lev 2 TB Reps/Minutes 10x 3 Shoulder IR Standing Exercise Name IR strengthening Side left Equipment Used Lev 2 TB Reps/Minutes 10x 3 Manual Therapy Treatment Manual Traction Cervical Details Manual C. tx angle: neutral, 30 & 40-45 degs flex Body Position Supine Reps/Duration 12' Self-Care/Home Management Treatment Education Patient Education Home Exercise Program,Pain Management,Posture Other Education Educated in a self care HEP of cervical stretch for rotation and self care pain management . Pt educated in proper head/ neck/upper back posture to minimized radicular pain. Activities Self-Care/Home Management Activities Issued & reviewed HEP: Neck rotation stretch in sup & sit. Recommended pt keep good head/ neck position with golfing and to do neck stretches to start . Pt to use MH after activity with head in good position. PT-OP-R Modalities Start: 05/18/22 19:05 Freq: Status: Active Protocol: Document 05/29/22 10:35 LRN (Rec: 05/29/22 11:19 LRN [id number]) Ultrasound Therapy Treatment R wrist extensors at lateral epicondyle Treatment Duration (minutes) 4 Patient Position Supine Coupling Medium Ultrasound Gel Applicator Size (cm2) 2 Frequency Setting (mHz) 3 Mode Setting Pulsed Duty Cycle 10% Intensity Setting (w/cm2) 0.8 Comments Pt felt tingling and vibration ; therefore discontinued treatment due to unable to reduce intensity farther. PT-OP-T Assessment and Plan Start: 05/18/22 19:05 Freq: Status: Active Protocol: Document 06/01/22 10:37 LRN (Rec: 06/01/22 11:22 LRN [id number]) Physical Therapy Assessment Goals Three Impairment R lateral elbow pain. Short Term Goal (STG) Pt will be educated in a self care HEP of STM, stretch, light strengthening and self care pain management techniques (cold packs). 06/01/22: Pt educated in HEP: cervical active rot stretch & use of hot pack for pain management (due to pt's report of lessening of pain with hot shower). STG Duration 06/12/22 (06/01/22: Progressed) Sap Technical Developer Goal (LTG) Eliminate R elbow pain with washing of back, holding cell phone to ear, and reaching for things out to side. LTG Duration 08/20/22 Two Impairment L shoulder pain rated 4/10 Short Term Goal (STG) Decrease L posterior shoulder pain to 2/10 with improved ability to sleep at night, waking at prior level of function of 1-2x/night, not due to pain. STG Duration 07/08/22 Fpc Goal (LTG) Eliminate pain with reaching L arm across the chest, reaching behind, and with dressing (removing and putting on tops). LTG Duration 08/20/22 One Impairment Lacks appropriate self care HEP. Short Term Goal (STG) Pt will be educated in proper head/neck/upper back posture to minimized radicular pain. STG Duration 06/05/22 (06/01/22: MET GOAL) Sap Technical Developer Goal (LTG) Pt will be independent in a self care HEP of neck, shoulder and elbow ex's to manage his pain and condition. 05/26/22: HEP: TBand ER strengthening. LTG Duration 08/20/22 (05/26/22: Progressing) Assessment Summary Assessment Pt's L shoulder impingement & R elbow medial epicondylitis is improving. Pt continues to improve with no c/o R elbow pain. Pt had no L shoulder pain with horiz AD in supine while C.tx applied; therefore cervical component is probable . Posterior L shoulder pain was at region of infraspinatus and is now mainly in the area of the supraspinatus. Pt has difficulty with scapular depression; therefore continues to have impingement with lifting his L arm in AB. Physical Therapy Plan Frequency and Duration Frequency of Treatment 2x/Week Plan of Care Start Date 05/22/22 Plan of Care End Date 08/20/22 Next Visit Focus/Plan Next Note Type Treatment Note Next Visit Plan Cont. L RC and scapular stabilization. Educate HEP: STM (R elbow/L shoulder), stretch wrist/ shoulder, & light wrist strengthening. Cont: R Elbow STM & JMT of radial lateral epicondyle as needed, R wrist ROM, radial n stretch, and strengthening for medial epicondylitis and monitor for cervical component . Start R wrist extensor stretching, & light strengthening. Education: posture -day & night, pain managment, and Self STM. As needed: Manual C.tx and neck stretches (UT & rotators) , L shoulder: JMT, ROM, and strengthening, HEP: of L shoulder and R elbow care.
--- NOTE | 2022-06-06 17:22 | PT.OTN ---
Current Diagnoses Pain in left shoulder (06/06/22) Pain in right elbow (06/06/22) Cervical disc disorder with radiculopathy, unspecified cervical region (06/06/22) Muscle weakness (generalized) (06/06/22) Physical Therapy Treatment Note PT-OP-A Visit Information Start: 05/18/22 19:05 Freq: Status: Active Protocol: Document 06/06/22 10:34 LRN (Rec: 06/06/22 11:18 LRN [id number]) Out-Patient Physical Therapy Visit Information Visit Information Visit Type Treatment Note Visit Start Time 10:33 Visit Stop Time 11:13 Total Visit Minutes 40 Visit Number 5 Evaluation Information Evaluation Date 05/22/22 Precautions Precautions Arthritis, Diabetes type II. 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 Vertigo 6-7 yrs ago. Hx of skin CA near bridge of nose, controled HBP. PT-OP-B Current Condition Start: 05/18/22 19:05 Freq: Status: Active Protocol: Document 05/22/22 11:21 LRN (Rec: 05/22/22 12:37 LRN [id number]) Current Condition History of Current Condition Onset Date February 2022. Current Complaints R lateral forearm pain (at elbow), & L posterior shoulder pain. History of Current Condition Insidious onset of R lateral elbow and L posterior shoulder pain. Pt reports years ago having R tennis elbow and it feels like it came back. Pt states he golfs but it doesn't interfer with golfing. He states his L posterior shoulder pain feels like it is deep inside, but not muscle. Can feel pain on the medial border of the L scapula. R elbow pain is primarily present with twisting of his forearm, palm up position. Prior Treatments and Tests R tennis elbow - mid 80's had PT with good results. Denies imaging. Treatment Goals Patient/Caregiver Goals Pt goal with therapy is eliminate the pain in the R elbow with washing of back, holding cell phone to ear, and reaching for things. Pt goal for L shoulder is to eliminate pain with sleeping, and reaching L arm across the chest and reaching behind, dressing (removing and putting on tops). Prior Functional Status Baseline Function- ADL's Independent Baseline Function- Mobility Independent Baseline Function- Recreation/Hobbies Gardening and Golfing without pain. Baseline Function- Other Slept on L side. Used to wake 1-2x/night. Current Functional Impairments (Reported) Functional Limitations- ADL's R elbow pain with reaching for things out to side, washing back (palm facing his back), pulling weeds/yard work, holding cell phone, . L shoulder pain with reaching for things out to side or reaching for tools in shed outside, dressing, reaching across his chest. Functional Limitations- Other Sleeps mostly on the back because not able to sleep on L side due to L shoulder pain. Wakes 2-3x/night. Personal Factors Other Personal Factors That May Effect Arthritis, Hx of skin CA near Therapy/Recovery bridge of nose. PT-OP-C Subjective Start: 05/18/22 19:05 Freq: Status: Active Protocol: Document 06/06/22 10:34 LRN (Rec: 06/06/22 11:18 LRN [id number]) OP-PT Subjective Patient Comments Patient Comments No shoulder pain. States his pain onset is less. States he went golfing over weekend, still no pain. PT-OP-E Functional Tests Start: 05/18/22 19:05 Freq: Status: Active Protocol: Document 05/26/22 11:23 LRN (Rec: 05/26/22 12:16 LRN [id number]) Functional Tests Apley's Scratch Test Action 1- Left Lateral R shoulder Action 1- Right Posterior L Scapula Action 2- Left T3 Action 2- Right T3 Action 3- Left T9 Action 3- Right T10 PT-OP-H Neuro Start: 05/18/22 19:05 Freq: Status: Active Protocol: Document 05/26/22 11:23 LRN (Rec: 05/26/22 12:18 LRN [id number]) Deep Tendon Reflex & Clonus Assessment Deep Tendon Reflex Bilateral Tricep Deep Tendon Reflex 1+ Diminished Bilateral Bicep Deep Tendon Reflex 2+ Normal PT-OP-J Posture/Palpation/Skin Start: 05/18/22 19:05 Freq: Status: Active Protocol: Document 05/22/22 11:21 LRN (Rec: 05/22/22 12:37 LRN [id number]) Posture Evaluation Position Standing Head/C-Spine Posture Forward Head T-Spine Posture Rotation Right,Increased Kyphosis L-Spine Posture Flattened,Shifted Right Shoulder Posture (L) Elevated Scapula Posture (L) Retracted,(L) Rotated Down PT-OP-K Range of Motion Start: 05/18/22 19:05 Freq: Status: Active Protocol: Document 05/26/22 11:23 LRN (Rec: 05/26/22 12:16 LRN [id number]) Wrist Goniometric Range of Motion ROM Limitations Comments Bilateral wrist AROM is WFL for pt's age. PT-OP-L Special Tests Start: 05/18/22 19:05 Freq: Status: Active Protocol: Document 05/26/22 11:23 LRN (Rec: 05/26/22 12:20 LRN [id number]) Special Tests Cervical Spine Special Tests Vertebral Artery Test Results Negative bilaterally Comments Cervical mobility for testing was extremely limited. PT-OP-M Strength Start: 05/18/22 19:05 Freq: Status: Active Protocol: Document 05/26/22 11:23 LRN (Rec: 05/26/22 12:16 LRN [id number]) Wrist Strength Wrist Manual Muscle Testing Right Flexion (C7) 5 Normal Extension (C6) 5 Normal Ulnar Deviation 5 Normal Radial Deviation 5 Normal Left Flexion (C7) 4+ Good+ Extension (C6) 4+ Good+ Ulnar Deviation 5 Normal Radial Deviation 5 Normal Hand Appliance Counselor/Pinch Strength Hand Dominance Hand Dominance Left Hand Strength Left Comments KGS: 38, 40, 38 (Standard Appliance Counselor Strength Norm for 75+ yo males is 24.9 kg) Right Comments KGS: 32, 30, 30 (Standard Appliance Counselor Strength Norm for 75+ yo males is 29.8 kg) PT-OP-Q Treatments Start: 05/18/22 19:05 Freq: Status: Active Protocol: Document 06/06/22 10:34 LRN (Rec: 06/06/22 11:18 LRN [id number]) Therapeutic Exercises Supine Exercises Lat pull down Supine Exercise Name Lat pull down Side bilateral Equipment Used Lev 2 TB, 1#, dowel stick Reps/Minutes 30 x Scap protract/retract Supine Exercise Name Scap protract/retract Side bilateral Reps/Minutes 10x 3 Neck Elongation Supine Exercise Name Neck Elongation Reps/Minutes 5SH x 10 throughout therapy Wrist flex stretch Supine Exercise Name Wrist flex stretch Side right Reps/Minutes 10 SH Neck PROM Supine Exercise Name C/S Rot & SB stretch Side bilateral Shoulder Horiz AD Supine Exercise Name MWM (PA of L humerus)with Shoulder Horiz AD Side left Reps/Minutes 5' L UT stretch Supine Exercise Name L UT manual stretch Side left Reps/Minutes 3' Manual C. tx Supine Exercise Name Manual C. tx Reps/Minutes 3' Sitting Exercises Wrist Flex/Ext Sitting Exercise Name Flex/Ext/UD/RD AROM & isometrics Side bilateral Reps/Minutes 2x each Comments MMT taken Standing Exercises Shoulder ER/IR Standing Exercise Name Elbow on Hamstring curl chair for active ER/IR Side left Reps/Minutes 30x Row Standing Exercise Name Scap retraction Side bilateral Equipment Used Lev 2 TB Reps/Minutes 10x 3 Shoulder Ext Standing Exercise Name Shoulder Ext Side bilateral Equipment Used Lev 2 TB Reps/Minutes 10x 3 Comments Much Cuing for scapular retraction & depression Shoulder ER Standing Exercise Name ER strengthening in painfree range Side left Resistance towel roll under elbow Equipment Used Lev 2 TB Reps/Minutes 10x 3 Shoulder IR Standing Exercise Name IR strengthening Side left Resistance towel roll under elbow Equipment Used Lev 2 TB Reps/Minutes 10x 3 Manual Therapy Treatment Soft Tissue Mobilization L UT Body Location L UT Mobilization Type Myofascial Release,Sustained Pressure Body Position Supine R lateral wrist extensors Body Location R lateral wrist extensors Mobilization Type Strumming Intensity/Depth Moderate Body Position Supine Comments No pain noted Manual Traction Cervical Details Manual C. tx angle: neutral, 30 & 45 degs flex Body Position Supine Reps/Duration 8' PT-OP-R Modalities Start: 05/18/22 19:05 Freq: Status: Active Protocol: Document 05/29/22 10:35 LRN (Rec: 05/29/22 11:19 LRN [id number]) Ultrasound Therapy Treatment R wrist extensors at lateral epicondyle Treatment Duration (minutes) 4 Patient Position Supine Coupling Medium Ultrasound Gel Applicator Size (cm2) 2 Frequency Setting (mHz) 3 Mode Setting Pulsed Duty Cycle 10% Intensity Setting (w/cm2) 0.8 Comments Pt felt tingling and vibration ; therefore discontinued treatment due to unable to reduce intensity farther. PT-OP-T Assessment and Plan Start: 05/18/22 19:05 Freq: Status: Active Protocol: Document 06/06/22 10:34 LRN (Rec: 06/06/22 11:18 LRN [id number]) Physical Therapy Assessment Goals Three Impairment R lateral elbow pain. Short Term Goal (STG) Pt will be educated in a self care HEP of STM, stretch, light strengthening and self care pain management techniques (cold packs). 06/01/22: Pt educated in HEP: cervical active rot stretch & use of hot pack for pain management (due to pt's report of lessening of pain with hot shower). STG Duration 06/12/22 (06/01/22: Progressed) Usp Goal (LTG) Eliminate R elbow pain with washing of back, holding cell phone to ear, and reaching for things out to side. LTG Duration 08/20/22 Two Impairment L shoulder pain rated 4/10 Short Term Goal (STG) Decrease L posterior shoulder pain to 2/10 with improved ability to sleep at night, waking at prior level of function of 1-2x/night, not due to pain. (06/06/22: No pain during the night, last night no pain). STG Duration 07/08/22 (06/06/22: Progressing) Usp Goal (LTG) Eliminate pain with reaching L arm across the chest, reaching behind, and with dressing (removing and putting on tops). (06/06/22: When puling shirt off has pain) LTG Duration 08/20/22 One Impairment Lacks appropriate self care HEP. Short Term Goal (STG) Pt will be educated in proper head/neck/upper back posture to minimized radicular pain. STG Duration 06/05/22 (06/01/22: MET GOAL) Usp Goal (LTG) Pt will be independent in a self care HEP of neck, shoulder and elbow ex's to manage his pain and condition. 05/26/22: HEP: TBand ER strengthening. LTG Duration 08/20/22 (05/26/22: Progressing) Progress Towards Goals Progress Comments Lessening of pain in L shoulder with sleeping. Assessment Summary Assessment Improving L shoulder impingement & R elbow medial epicondylitis. No pain with exercise at R elbow and pt able to eliminate L shoulder pain with reaching across the chest when performing scapular depression before the mvmt. Physical Therapy Plan Frequency and Duration Frequency of Treatment 2x/Week Plan of Care Start Date 05/22/22 Plan of Care End Date 08/20/22 Next Visit Focus/Plan Next Note Type Treatment Note Next Visit Plan Cont. L RC and scapular depression strengthening with horiz AD mvmt. Educate HEP: STM (R elbow/L shoulder), stretch R wrist/L shoulder, & start light R wrist strengthening. As needed: R Elbow STM & JMT of radial lateral epicondyle, R wrist ROM, radial n stretch, and strengthening for medial epicondylitis and monitor for cervical component. Check for need of R wrist extensor stretching (ROM), & light strengthening. Education: Self STM. As needed: Manual C.tx and neck stretches (UT & rotators) , L shoulder: JMT, ROM, and strengthening, HEP: of L shoulder and R elbow care.
--- NOTE | 2022-06-08 17:26 | PT.OTN ---
Current Diagnoses Pain in left shoulder (06/08/22) Pain in right elbow (06/08/22) Cervical disc disorder with radiculopathy, unspecified cervical region (06/08/22) Muscle weakness (generalized) (06/08/22) Physical Therapy Treatment Note PT-OP-A Visit Information Start: 05/18/22 19:05 Freq: Status: Active Protocol: Document 06/08/22 10:35 LRN (Rec: 06/08/22 11:21 LRN [id number]) Out-Patient Physical Therapy Visit Information Visit Information Visit Type Aquatic Treatment Note Visit Start Time 10:35 Visit Stop Time 11:15 Total Visit Minutes 40 Visit Number 6 Evaluation Information Evaluation Date 05/22/22 Precautions Precautions Arthritis, Diabetes type II. 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 Vertigo 6-7 yrs ago. Hx of skin CA near bridge of nose, controled HBP. PT-OP-B Current Condition Start: 05/18/22 19:05 Freq: Status: Active Protocol: Document 05/22/22 11:21 LRN (Rec: 05/22/22 12:37 LRN [id number]) Current Condition History of Current Condition Onset Date February 2022. Current Complaints R lateral forearm pain (at elbow), & L posterior shoulder pain. History of Current Condition Insidious onset of R lateral elbow and L posterior shoulder pain. Pt reports years ago having R tennis elbow and it feels like it came back. Pt states he golfs but it doesn't interfer with golfing. He states his L posterior shoulder pain feels like it is deep inside, but not muscle. Can feel pain on the medial border of the L scapula. R elbow pain is primarily present with twisting of his forearm, palm up position. Prior Treatments and Tests R tennis elbow - mid 80's had PT with good results. Denies imaging. Treatment Goals Patient/Caregiver Goals Pt goal with therapy is eliminate the pain in the R elbow with washing of back, holding cell phone to ear, and reaching for things. Pt goal for L shoulder is to eliminate pain with sleeping, and reaching L arm across the chest and reaching behind, dressing (removing and putting on tops). Prior Functional Status Baseline Function- ADL's Independent Baseline Function- Mobility Independent Baseline Function- Recreation/Hobbies Gardening and Golfing without pain. Baseline Function- Other Slept on L side. Used to wake 1-2x/night. Current Functional Impairments (Reported) Functional Limitations- ADL's R elbow pain with reaching for things out to side, washing back (palm facing his back), pulling weeds/yard work, holding cell phone, . L shoulder pain with reaching for things out to side or reaching for tools in shed outside, dressing, reaching across his chest. Functional Limitations- Other Sleeps mostly on the back because not able to sleep on L side due to L shoulder pain. Wakes 2-3x/night. Personal Factors Other Personal Factors That May Effect Arthritis, Hx of skin CA near Therapy/Recovery bridge of nose. PT-OP-C Subjective Start: 05/18/22 19:05 Freq: Status: Active Protocol: Document 06/08/22 10:35 LRN (Rec: 06/08/22 11:21 LRN [id number]) OP-PT Subjective Patient Comments Patient Comments States he has less pain swinging the L arm across his chest. No pain in R elbow. PT-OP-E Functional Tests Start: 05/18/22 19:05 Freq: Status: Active Protocol: Document 05/26/22 11:23 LRN (Rec: 05/26/22 12:16 LRN [id number]) Functional Tests Apley's Scratch Test Action 1- Left Lateral R shoulder Action 1- Right Posterior L Scapula Action 2- Left T3 Action 2- Right T3 Action 3- Left T9 Action 3- Right T10 PT-OP-H Neuro Start: 05/18/22 19:05 Freq: Status: Active Protocol: Document 05/26/22 11:23 LRN (Rec: 05/26/22 12:18 LRN [id number]) Deep Tendon Reflex & Clonus Assessment Deep Tendon Reflex Bilateral Tricep Deep Tendon Reflex 1+ Diminished Bilateral Bicep Deep Tendon Reflex 2+ Normal PT-OP-J Posture/Palpation/Skin Start: 05/18/22 19:05 Freq: Status: Active Protocol: Document 05/22/22 11:21 LRN (Rec: 05/22/22 12:37 LRN [id number]) Posture Evaluation Position Standing Head/C-Spine Posture Forward Head T-Spine Posture Rotation Right,Increased Kyphosis L-Spine Posture Flattened,Shifted Right Shoulder Posture (L) Elevated Scapula Posture (L) Retracted,(L) Rotated Down PT-OP-K Range of Motion Start: 05/18/22 19:05 Freq: Status: Active Protocol: Document 05/26/22 11:23 LRN (Rec: 05/26/22 12:16 LRN [id number]) Wrist Goniometric Range of Motion ROM Limitations Comments Bilateral wrist AROM is WFL for pt's age. PT-OP-L Special Tests Start: 05/18/22 19:05 Freq: Status: Active Protocol: Document 05/26/22 11:23 LRN (Rec: 05/26/22 12:20 LRN [id number]) Special Tests Cervical Spine Special Tests Vertebral Artery Test Results Negative bilaterally Comments Cervical mobility for testing was extremely limited. PT-OP-M Strength Start: 05/18/22 19:05 Freq: Status: Active Protocol: Document 05/26/22 11:23 LRN (Rec: 05/26/22 12:16 LRN [id number]) Wrist Strength Wrist Manual Muscle Testing Right Flexion (C7) 5 Normal Extension (C6) 5 Normal Ulnar Deviation 5 Normal Radial Deviation 5 Normal Left Flexion (C7) 4+ Good+ Extension (C6) 4+ Good+ Ulnar Deviation 5 Normal Radial Deviation 5 Normal Hand Portable Irrigation Operator/Pinch Strength Hand Dominance Hand Dominance Left Hand Strength Left Comments KGS: 38, 40, 38 (Standard Portable Irrigation Operator Strength Norm for 75+ yo males is 24.9 kg) Right Comments KGS: 32, 30, 30 (Standard Portable Irrigation Operator Strength Norm for 75+ yo males is 29.8 kg) PT-OP-Q Treatments Start: 05/18/22 19:05 Freq: Status: Active Protocol: Document 06/08/22 10:35 LRN (Rec: 06/08/22 11:21 LRN [id number]) Cardio Equipment Upper Body Ergometer (UBE) Duration (Minutes) 4 RPM 70 Seat Position 11 Height 3 Therapeutic Exercises Supine Exercises Wrist ext Supine Exercise Name Active wrist ext: elbow at side and in full ext Side right Reps/Minutes 15x each Lat pull down Supine Exercise Name Lat pull down Side bilateral Equipment Used Single strand Lev 3 TB, 2#, dowel stick Reps/Minutes 10 x 3 Scap protract/retract Supine Exercise Name Scap protract/retract Side bilateral Reps/Minutes 15x Wrist flex stretch Supine Exercise Name Wrist flex stretch Side right Reps/Minutes 10 SH Standing Exercises Shoulder AD Standing Exercise Name Shldr AD Side bilateral Equipment Used LEv 2 TB Reps/Minutes 15x each Resisted R hand to ear Standing Exercise Name Reaching hand to ear Side bilateral Equipment Used Lev 1 TB Left, Lev 2 TB Right. Reps/Minutes 15x Reach behind back Standing Exercise Name Reaching behind back (back washing motion) Side left Comments Cuing for L scapular depression before reaching. Row Standing Exercise Name Scap retraction Side bilateral Equipment Used Lev 2 TB Reps/Minutes 10x 3 Shoulder Ext Standing Exercise Name Shoulder Ext/Scapular depression Side bilateral Equipment Used Lev 2 TB Reps/Minutes 10x 3 Comments Much Cuing for scapular retraction & depression Shoulder ER Standing Exercise Name ER strengthening in painfree range Side left Resistance towel roll under elbow Equipment Used Lev 2 TB Reps/Minutes 10x 3 Shoulder IR Standing Exercise Name IR strengthening Side left Resistance towel roll under elbow Equipment Used Lev 2 TB Reps/Minutes 10x 3 Comments Cuing to keep scapula depressed Self-Care/Home Management Treatment Education Patient Education Home Exercise Program Activities Self-Care/Home Management Activities Issued & reviewed HEP: R wrist stretch to extensor & wrist ext AROM. PT-OP-R Modalities Start: 05/18/22 19:05 Freq: Status: Active Protocol: Document 05/29/22 10:35 LRN (Rec: 05/29/22 11:19 LRN [id number]) Ultrasound Therapy Treatment R wrist extensors at lateral epicondyle Treatment Duration (minutes) 4 Patient Position Supine Coupling Medium Ultrasound Gel Applicator Size (cm2) 2 Frequency Setting (mHz) 3 Mode Setting Pulsed Duty Cycle 10% Intensity Setting (w/cm2) 0.8 Comments Pt felt tingling and vibration ; therefore discontinued treatment due to unable to reduce intensity farther. PT-OP-T Assessment and Plan Start: 05/18/22 19:05 Freq: Status: Active Protocol: Document 06/08/22 10:35 LRN (Rec: 06/08/22 11:21 LRN [id number]) Physical Therapy Assessment Goals Three Impairment R lateral elbow pain. Short Term Goal (STG) Pt will be educated in a self care HEP of STM, stretch, light strengthening and self care pain management techniques (cold packs). 06/01/22: Pt educated in HEP: cervical active rot stretch & use of hot pack for pain management (due to pt's report of lessening of pain with hot shower). STG Duration 06/12/22 (06/01/22: Progressed) Tire Cord Weaver Goal (LTG) Eliminate R elbow pain with washing of back, holding cell phone to ear, and reaching for things out to side. LTG Duration 08/20/22 Two Impairment L shoulder pain rated 4/10 Short Term Goal (STG) Decrease L posterior shoulder pain to 2/10 with improved ability to sleep at night, waking at prior level of function of 1-2x/night, not due to pain. (06/06/22: No pain during the night, last night no pain). STG Duration 07/08/22 (06/06/22: Progressing) [facility] Goal (LTG) Eliminate pain with reaching L arm across the chest, reaching behind, and with dressing (removing and putting on tops). (06/06/22: When puling shirt off has pain) LTG Duration 08/20/22 One Impairment Lacks appropriate self care HEP. Short Term Goal (STG) Pt will be educated in proper head/neck/upper back posture to minimized radicular pain. STG Duration 06/05/22 (06/01/22: MET GOAL) Tire Cord Weaver Goal (LTG) Pt will be independent in a self care HEP of neck, shoulder and elbow ex's to manage his pain and condition. 05/26/22: HEP: TBand ER strengthening. 06/08/22: HEP: Wrist stretch to extensors & AROM ext. LTG Duration 08/20/22 (06/08/22: Progressing) Assessment Summary Assessment No pain with RC strengthening ex's, and pt able to reach with L arm across his chest without L upper shoulder pain when the scapula is placed in depression before mvmt. No pain c/o with R elbow. Physical Therapy Plan Frequency and Duration Frequency of Treatment 2x/Week Plan of Care Start Date 05/22/22 Plan of Care End Date 08/20/22 Next Visit Focus/Plan Next Note Type Treatment Note Next Visit Plan Review HEP issued (wrist ex's) . L RC and scapular depression strengthening with horiz AD mvmt, and asses washing back motions. Educate HEP: STM (R elbow/L shoulder), stretch L shoulder, & progress light R wrist strengthening. As needed: R Elbow STM & JMT of radial lateral epicondyle, radial n stretch, and strengthening for medial epicondylitis. Monitor for cervical component. Education: Self STM. As needed: Manual C.tx and neck stretches (UT & rotators) HEP: of L shoulder and R elbow care.
--- NOTE | 2022-06-12 12:39 | PT.OTN ---
Current Diagnoses Pain in left shoulder (06/12/22) Pain in right elbow (06/12/22) Cervical disc disorder with radiculopathy, unspecified cervical region (06/12/22) Muscle weakness (generalized) (06/12/22) Physical Therapy Treatment Note PT-OP-A Visit Information Start: 05/18/22 19:05 Freq: Status: Active Protocol: Document 06/12/22 10:34 LRN (Rec: 06/12/22 12:39 LRN [id number]) Out-Patient Physical Therapy Visit Information Visit Information Visit Type Treatment Note Visit Start Time 10:34 Visit Stop Time 11:15 Total Visit Minutes 41 Visit Number 7 Evaluation Information Evaluation Date 05/22/22 Precautions Precautions Arthritis, Diabetes type II. 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 Vertigo 6-7 yrs ago. Hx of skin CA near bridge of nose, controled HBP. PT-OP-B Current Condition Start: 05/18/22 19:05 Freq: Status: Active Protocol: Document 05/22/22 11:21 LRN (Rec: 05/22/22 12:37 LRN [id number]) Current Condition History of Current Condition Onset Date February 2022. Current Complaints R lateral forearm pain (at elbow), & L posterior shoulder pain. History of Current Condition Insidious onset of R lateral elbow and L posterior shoulder pain. Pt reports years ago having R tennis elbow and it feels like it came back. Pt states he golfs but it doesn't interfer with golfing. He states his L posterior shoulder pain feels like it is deep inside, but not muscle. Can feel pain on the medial border of the L scapula. R elbow pain is primarily present with twisting of his forearm, palm up position. Prior Treatments and Tests R tennis elbow - mid 80's had PT with good results. Denies imaging. Treatment Goals Patient/Caregiver Goals Pt goal with therapy is eliminate the pain in the R elbow with washing of back, holding cell phone to ear, and reaching for things. Pt goal for L shoulder is to eliminate pain with sleeping, and reaching L arm across the chest and reaching behind, dressing (removing and putting on tops). Prior Functional Status Baseline Function- ADL's Independent Baseline Function- Mobility Independent Baseline Function- Recreation/Hobbies Gardening and Golfing without pain. Baseline Function- Other Slept on L side. Used to wake 1-2x/night. Current Functional Impairments (Reported) Functional Limitations- ADL's R elbow pain with reaching for things out to side, washing back (palm facing his back), pulling weeds/yard work, holding cell phone, . L shoulder pain with reaching for things out to side or reaching for tools in shed outside, dressing, reaching across his chest. Functional Limitations- Other Sleeps mostly on the back because not able to sleep on L side due to L shoulder pain. Wakes 2-3x/night. Personal Factors Other Personal Factors That May Effect Arthritis, Hx of skin CA near Therapy/Recovery bridge of nose. PT-OP-C Subjective Start: 05/18/22 19:05 Freq: Status: Active Protocol: Document 06/12/22 10:34 LRN (Rec: 06/12/22 12:39 LRN [id number]) OP-PT Subjective Patient Comments Patient Comments States he had a massage so his body is feeling better. Feels upper shoulder (pointing to Supraspinatus location) diseomfort with washing back and reaching over opposite shoulder. Pt reports NO elbow pain with R elbow pain with washing of back, holding cell phone to ear, and reaching for things out to side. PT-OP-E Functional Tests Start: 05/18/22 19:05 Freq: Status: Active Protocol: Document 05/26/22 11:23 LRN (Rec: 05/26/22 12:16 LRN [id number]) Functional Tests Apley's Scratch Test Action 1- Left Lateral R shoulder Action 1- Right Posterior L Scapula Action 2- Left T3 Action 2- Right T3 Action 3- Left T9 Action 3- Right T10 PT-OP-H Neuro Start: 05/18/22 19:05 Freq: Status: Active Protocol: Document 05/26/22 11:23 LRN (Rec: 05/26/22 12:18 LRN [id number]) Deep Tendon Reflex & Clonus Assessment Deep Tendon Reflex Bilateral Tricep Deep Tendon Reflex 1+ Diminished Bilateral Bicep Deep Tendon Reflex 2+ Normal PT-OP-J Posture/Palpation/Skin Start: 05/18/22 19:05 Freq: Status: Active Protocol: Document 05/22/22 11:21 LRN (Rec: 05/22/22 12:37 LRN [id number]) Posture Evaluation Position Standing Head/C-Spine Posture Forward Head T-Spine Posture Rotation Right,Increased Kyphosis L-Spine Posture Flattened,Shifted Right Shoulder Posture (L) Elevated Scapula Posture (L) Retracted,(L) Rotated Down PT-OP-K Range of Motion Start: 05/18/22 19:05 Freq: Status: Active Protocol: Document 05/26/22 11:23 LRN (Rec: 05/26/22 12:16 LRN [id number]) Wrist Goniometric Range of Motion ROM Limitations Comments Bilateral wrist AROM is WFL for pt's age. PT-OP-L Special Tests Start: 05/18/22 19:05 Freq: Status: Active Protocol: Document 05/26/22 11:23 LRN (Rec: 05/26/22 12:20 LRN [id number]) Special Tests Cervical Spine Special Tests Vertebral Artery Test Results Negative bilaterally Comments Cervical mobility for testing was extremely limited. PT-OP-M Strength Start: 05/18/22 19:05 Freq: Status: Active Protocol: Document 05/26/22 11:23 LRN (Rec: 05/26/22 12:16 LRN [id number]) Wrist Strength Wrist Manual Muscle Testing Right Flexion (C7) 5 Normal Extension (C6) 5 Normal Ulnar Deviation 5 Normal Radial Deviation 5 Normal Left Flexion (C7) 4+ Good+ Extension (C6) 4+ Good+ Ulnar Deviation 5 Normal Radial Deviation 5 Normal Hand Waste Disposal Leakage Tester/Pinch Strength Hand Dominance Hand Dominance Left Hand Strength Left Comments KGS: 38, 40, 38 (Standard Waste Disposal Leakage Tester Strength Norm for 75+ yo males is 24.9 kg) Right Comments KGS: 32, 30, 30 (Standard Waste Disposal Leakage Tester Strength Norm for 75+ yo males is 29.8 kg) PT-OP-Q Treatments Start: 05/18/22 19:05 Freq: Status: Active Protocol: Document 06/12/22 10:34 LRN (Rec: 06/12/22 12:39 LRN [id number]) Therapeutic Exercises Supine Exercises Wrist ext Supine Exercise Name Active wrist ext: elbow at side and in full ext Side right Reps/Minutes 15x each Lat pull down Supine Exercise Name Lat pull down Side bilateral Equipment Used Single strand Lev 3 TB, 2#, dowel stick Reps/Minutes 10 x 3 Scap protract/retract Supine Exercise Name Scap protract/retract Side bilateral Reps/Minutes 15x Sitting Exercises Lev Scap stretch Sitting Exercise Name Lev Scap stretch (hand under buttock) Side left Reps/Minutes 3' Comments Extra time to determine best positioning for stretch. Standing Exercises Shoulder AD Standing Exercise Name Shldr AD Side bilateral Equipment Used LEv 2 TB Reps/Minutes 15x 2 each Reach behind back Standing Exercise Name Reaching behind back (back washing motion) Side left Comments Cuing for L scapular depression before reaching. Shoulder ER/IR Standing Exercise Name Elbow on Hamstring curl chair for active ER/IR Side left Reps/Minutes 15x 2 Shoulder Ext Standing Exercise Name Shoulder Ext/Scapular depression Side bilateral Equipment Used Lev 2 TB Reps/Minutes 15x 2 Comments Cuing for scapular retraction & depression Shoulder ER Standing Exercise Name ER strengthening in painfree range Side left Resistance towel roll under elbow Equipment Used Lev 2 TB Reps/Minutes 10x 3 Shoulder IR Standing Exercise Name IR strengthening Side left Resistance towel roll under elbow Equipment Used Lev 2 TB Reps/Minutes 10x 3 Comments Cuing to keep scapula depressed Manual Therapy Treatment Soft Tissue Mobilization L Supraspatus Body Location L Supraspinatus Mobilization Type Sustained Pressure Intensity/Depth Moderate Body Position Supine L Lev Scap Body Location L Lev Scap Mobilization Type Myofascial Release,Sustained Pressure,Trigger Point Release Intensity/Depth Moderate Body Position Supine L UT Body Location L UT Mobilization Type Myofascial Release Intensity/Depth Moderate Body Position Supine PT-OP-R Modalities Start: 05/18/22 19:05 Freq: Status: Active Protocol: Document 05/29/22 10:35 LRN (Rec: 05/29/22 11:19 LRN [id number]) Ultrasound Therapy Treatment R wrist extensors at lateral epicondyle Treatment Duration (minutes) 4 Patient Position Supine Coupling Medium Ultrasound Gel Applicator Size (cm2) 2 Frequency Setting (mHz) 3 Mode Setting Pulsed Duty Cycle 10% Intensity Setting (w/cm2) 0.8 Comments Pt felt tingling and vibration ; therefore discontinued treatment due to unable to reduce intensity farther. PT-OP-T Assessment and Plan Start: 05/18/22 19:05 Freq: Status: Active Protocol: Document 06/12/22 10:34 LRN (Rec: 06/12/22 12:39 LRN [id number]) Physical Therapy Assessment Goals Three Impairment R lateral elbow pain. Short Term Goal (STG) Pt will be educated in a self care HEP of STM, stretch, light strengthening and self care pain management techniques (cold packs). 06/01/22: Pt educated in HEP: cervical active rot stretch & use of hot pack for pain management (due to pt's report of lessening of pain with hot shower). 06/12/22: Pt demonstrated good knowledge of R elbow care of (stretch, ex, STM, & knowledge of use of ice. STG Duration 06/12/22 (06/12/22: MET GOAL ) Senior Care Goal (LTG) Eliminate R elbow pain with washing of back, holding cell phone to ear, and reaching for things out to side. LTG Duration 08/20/22 (06/12/22: MET GOAL ) Two Impairment L shoulder pain rated 4/10 Short Term Goal (STG) Decrease L posterior shoulder pain to 2/10 with improved ability to sleep at night, waking at prior level of function of 1-2x/night, not due to pain. (06/06/22: No pain during the night, last night no pain). (06/12/22: No pain at night. STG Duration 07/08/22 (06/12/22: MET GOAL ) Reach Truck Operator Goal (LTG) Eliminate pain with reaching L arm across the chest, reaching behind, and with dressing (removing and putting on tops). (06/06/22: When puling shirt off has pain) (06/12/22: Reaching across chest pain is 3/10, otherwise 0/10). LTG Duration 08/20/22 (06/12/22: Improving) One Impairment Lacks appropriate self care HEP. Short Term Goal (STG) Pt will be educated in proper head/neck/upper back posture to minimized radicular pain. STG Duration 06/05/22 (06/01/22: MET GOAL) Senior Care Goal (LTG) Pt will be independent in a self care HEP of neck, shoulder and elbow ex's to manage his pain and condition. 05/26/22: HEP: TBand ER strengthening. 06/01/22: HEP: Neck AROM & posture education. 06/08/22: HEP: Wrist stretch to extensors & AROM ext. 06/12/22: I/S in Lev Scap/UT stretch. LTG Duration 08/20/22 (06/12/22: Self care I/S completed for neck, elbow ) Assessment Summary Assessment Pt having no R elbow pain with use his R arm. He demonstrated good knowledge of R elbow self care of massage and stretch & gentle strengthening. He has no pain with washing of back motion and is able to reach behind his back farther with RUE than LUE. Pt has pain with reaching across chest in L Lev scap and Supraspinatus if he does not perform Scapular depression to start. RC dysfunction, sloww progression ; therefore possible tear. Pt was tight in Supraspinatus and Lev scap. Physical Therapy Plan Frequency and Duration Frequency of Treatment 2x/Week Plan of Care Start Date 05/22/22 Plan of Care End Date 08/20/22 Next Visit Focus/Plan Next Note Type Treatment Note Next Visit Plan L RC and scapular depression strengthening with horiz AD mvmt. Add to HEP: RC and Scap depression strengthening. Try L Supraspinatus strengthening if he can do painfree. Educate HEP: STM (L shoulder), stretch L shoulder, & progress. As needed: Manual C.tx and neck stretches (UT & rotators) HEP: of L shoulder.
--- NOTE | 2022-06-22 17:04 | PT.OTN ---
Current Diagnoses Pain in left shoulder (06/22/22) Pain in right elbow (06/22/22) Cervical disc disorder with radiculopathy, unspecified cervical region (06/22/22) Muscle weakness (generalized) (06/22/22) Physical Therapy Treatment Note PT-OP-A Visit Information Start: 05/18/22 19:05 Freq: Status: Active Protocol: Document 06/22/22 10:38 LRN (Rec: 06/22/22 11:21 LRN [id number]) Out-Patient Physical Therapy Visit Information Visit Information Visit Type Treatment Note Visit Start Time 10:38 Visit Stop Time 11:20 Total Visit Minutes 42 Visit Number 8 Evaluation Information Evaluation Date 05/22/22 Precautions Precautions Arthritis, Diabetes type II. 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 Vertigo 6-7 yrs ago. Hx of skin CA near bridge of nose, controled HBP. PT-OP-B Current Condition Start: 05/18/22 19:05 Freq: Status: Active Protocol: Document 05/22/22 11:21 LRN (Rec: 05/22/22 12:37 LRN [id number]) Current Condition History of Current Condition Onset Date February 2022. Current Complaints R lateral forearm pain (at elbow), & L posterior shoulder pain. History of Current Condition Insidious onset of R lateral elbow and L posterior shoulder pain. Pt reports years ago having R tennis elbow and it feels like it came back. Pt states he golfs but it doesn't interfer with golfing. He states his L posterior shoulder pain feels like it is deep inside, but not muscle. Can feel pain on the medial border of the L scapula. R elbow pain is primarily present with twisting of his forearm, palm up position. Prior Treatments and Tests R tennis elbow - mid 80's had PT with good results. Denies imaging. Treatment Goals Patient/Caregiver Goals Pt goal with therapy is eliminate the pain in the R elbow with washing of back, holding cell phone to ear, and reaching for things. Pt goal for L shoulder is to eliminate pain with sleeping, and reaching L arm across the chest and reaching behind, dressing (removing and putting on tops). Prior Functional Status Baseline Function- ADL's Independent Baseline Function- Mobility Independent Baseline Function- Recreation/Hobbies Gardening and Golfing without pain. Baseline Function- Other Slept on L side. Used to wake 1-2x/night. Current Functional Impairments (Reported) Functional Limitations- ADL's R elbow pain with reaching for things out to side, washing back (palm facing his back), pulling weeds/yard work, holding cell phone, . L shoulder pain with reaching for things out to side or reaching for tools in shed outside, dressing, reaching across his chest. Functional Limitations- Other Sleeps mostly on the back because not able to sleep on L side due to L shoulder pain. Wakes 2-3x/night. Personal Factors Other Personal Factors That May Effect Arthritis, Hx of skin CA near Therapy/Recovery bridge of nose. PT-OP-C Subjective Start: 05/18/22 19:05 Freq: Status: Active Protocol: Document 06/22/22 10:38 LRN (Rec: 06/22/22 11:21 LRN [id number]) OP-PT Subjective Patient Comments Patient Comments L shoulder pain is different, now felt in L lateral deltoid. Pain behind the shoulder is gone. Had a massage and was worked on for 1.5 hrs. Having another massage tomorrow. PT-OP-E Functional Tests Start: 05/18/22 19:05 Freq: Status: Active Protocol: Document 05/26/22 11:23 LRN (Rec: 05/26/22 12:16 LRN [id number]) Functional Tests Apley's Scratch Test Action 1- Left Lateral R shoulder Action 1- Right Posterior L Scapula Action 2- Left T3 Action 2- Right T3 Action 3- Left T9 Action 3- Right T10 PT-OP-H Neuro Start: 05/18/22 19:05 Freq: Status: Active Protocol: Document 05/26/22 11:23 LRN (Rec: 05/26/22 12:18 LRN [id number]) Deep Tendon Reflex & Clonus Assessment Deep Tendon Reflex Bilateral Tricep Deep Tendon Reflex 1+ Diminished Bilateral Bicep Deep Tendon Reflex 2+ Normal PT-OP-J Posture/Palpation/Skin Start: 05/18/22 19:05 Freq: Status: Active Protocol: Document 05/22/22 11:21 LRN (Rec: 05/22/22 12:37 LRN [id number]) Posture Evaluation Position Standing Head/C-Spine Posture Forward Head T-Spine Posture Rotation Right,Increased Kyphosis L-Spine Posture Flattened,Shifted Right Shoulder Posture (L) Elevated Scapula Posture (L) Retracted,(L) Rotated Down PT-OP-K Range of Motion Start: 05/18/22 19:05 Freq: Status: Active Protocol: Document 05/26/22 11:23 LRN (Rec: 05/26/22 12:16 LRN [id number]) Wrist Goniometric Range of Motion ROM Limitations Comments Bilateral wrist AROM is WFL for pt's age. PT-OP-L Special Tests Start: 05/18/22 19:05 Freq: Status: Active Protocol: Document 05/26/22 11:23 LRN (Rec: 05/26/22 12:20 LRN [id number]) Special Tests Cervical Spine Special Tests Vertebral Artery Test Results Negative bilaterally Comments Cervical mobility for testing was extremely limited. PT-OP-M Strength Start: 05/18/22 19:05 Freq: Status: Active Protocol: Document 05/26/22 11:23 LRN (Rec: 05/26/22 12:16 LRN [id number]) Wrist Strength Wrist Manual Muscle Testing Right Flexion (C7) 5 Normal Extension (C6) 5 Normal Ulnar Deviation 5 Normal Radial Deviation 5 Normal Left Flexion (C7) 4+ Good+ Extension (C6) 4+ Good+ Ulnar Deviation 5 Normal Radial Deviation 5 Normal Hand Repairer Finished Metal/Pinch Strength Hand Dominance Hand Dominance Left Hand Strength Left Comments KGS: 38, 40, 38 (Standard Repairer Finished Metal Strength Norm for 75+ yo males is 24.9 kg) Right Comments KGS: 32, 30, 30 (Standard Repairer Finished Metal Strength Norm for 75+ yo males is 29.8 kg) PT-OP-Q Treatments Start: 05/18/22 19:05 Freq: Status: Active Protocol: Document 06/22/22 10:38 LRN (Rec: 06/22/22 11:21 LRN [id number]) Therapeutic Exercises Supine Exercises Neck Elongation Supine Exercise Name Neck Elongation Reps/Minutes 5SH, 10 x 2 Standing Exercises Lat Pull down Standing Exercise Name Lat Pull Down Equipment Used Lev 2 TB Reps/Minutes 10x 3 Shoulder AD Standing Exercise Name Shldr AD Side left Equipment Used LEv 2 TB assisting shoulder AB Reps/Minutes 15x 2 each Manual Therapy Treatment Soft Tissue Mobilization Cervical Body Location Posterior spinal neck muscles Mobilization Type Myofascial Release,Sustained Pressure Intensity/Depth superficial to deep Body Position Supine L Supraspatus Body Location L Supraspinatus Mobilization Type Sustained Pressure Intensity/Depth Moderate Body Position Supine Joint Mobilizations Neck Joint C3 on C4, C4 on C5 Direction Posterior glide Grade II Body Position Supine Reps/Duration 3' Manual Traction Cervical Details Manual C. tx angle: neutral, 30 degs flex Body Position Supine Reps/Duration 10' Comments Intermittently performed during manual therapy. PT-OP-R Modalities Start: 05/18/22 19:05 Freq: Status: Active Protocol: Document 05/29/22 10:35 LRN (Rec: 05/29/22 11:19 LRN [id number]) Ultrasound Therapy Treatment R wrist extensors at lateral epicondyle Treatment Duration (minutes) 4 Patient Position Supine Coupling Medium Ultrasound Gel Applicator Size (cm2) 2 Frequency Setting (mHz) 3 Mode Setting Pulsed Duty Cycle 10% Intensity Setting (w/cm2) 0.8 Comments Pt felt tingling and vibration ; therefore discontinued treatment due to unable to reduce intensity farther. PT-OP-T Assessment and Plan Start: 05/18/22 19:05 Freq: Status: Active Protocol: Document 06/22/22 10:38 LRN (Rec: 06/22/22 11:21 LRN [id number]) Physical Therapy Assessment Goals Three Impairment R lateral elbow pain. Short Term Goal (STG) Pt will be educated in a self care HEP of STM, stretch, light strengthening and self care pain management techniques (cold packs). 06/01/22: Pt educated in HEP: cervical active rot stretch & use of hot pack for pain management (due to pt's report of lessening of pain with hot shower). 06/12/22: Pt demonstrated good knowledge of R elbow care of (stretch, ex, STM, & knowledge of use of ice. STG Duration 06/12/22 (06/12/22: MET GOAL ) Senior Living Goal (LTG) Eliminate R elbow pain with washing of back, holding cell phone to ear, and reaching for things out to side. LTG Duration 08/20/22 (06/12/22: MET GOAL ) Two Impairment L shoulder pain rated 4/10 Short Term Goal (STG) Decrease L posterior shoulder pain to 2/10 with improved ability to sleep at night, waking at prior level of function of 1-2x/night, not due to pain. (06/06/22: No pain during the night, last night no pain). (06/12/22: No pain at night. STG Duration 07/08/22 (06/12/22: MET GOAL ) Film Cutter Goal (LTG) Eliminate pain with reaching L arm across the chest, reaching behind, and with dressing (removing and putting on tops). (06/06/22: When puling shirt off has pain) (06/12/22: Reaching across chest pain is 3/10, otherwise 0/10). LTG Duration 08/20/22 (06/12/22: Improving) One Impairment Lacks appropriate self care HEP. Short Term Goal (STG) Pt will be educated in proper head/neck/upper back posture to minimized radicular pain. STG Duration 06/05/22 (06/01/22: MET GOAL) Senior Living Goal (LTG) Pt will be independent in a self care HEP of neck, shoulder and elbow ex's to manage his pain and condition. 05/26/22: HEP: TBand ER strengthening. 06/01/22: HEP: Neck AROM & posture education. 06/08/22: HEP: Wrist stretch to extensors & AROM ext. 06/12/22: I/S in Lev Scap/UT stretch. LTG Duration 08/20/22 (06/12/22: Self care I/S completed for neck, elbow ) Assessment Summary Assessment L lateral deltoid pain reduced with arm movement with manual c. tx and after STM; therefore probable shoulder pain is cervical in nature. Decrease in pain from 5/10 to 1/10 with manual traction and STM to C3-C7. Onset possibly from pt sleeping with too thick of pillow in supine. Physical Therapy Plan Frequency and Duration Frequency of Treatment 1x/Week Plan of Care Start Date 05/22/22 Plan of Care End Date 08/20/22 Next Visit Focus/Plan Next Note Type Treatment Note Next Visit Plan Decrease therapy to 1x/week. Pt continuing with massage therapy. Continue RC strengthening/ stabilization if lateral deltoid pain eliminated, cont L RC and scapular depression strengthening with horiz AD mvmt. Add to HEP: RC and Scap depression strengthening. Try L Supraspinatus strengthening if he can do painfree. Educate HEP: STM (L shoulder), stretch L shoulder, & progress. As needed: Manual C.tx and neck stretches (UT & rotators) HEP: of L shoulder.
--- NOTE | 2022-06-22 17:05 | PT.OTN ---
Current Diagnoses Pain in left shoulder (06/22/22) Pain in right elbow (06/22/22) Cervical disc disorder with radiculopathy, unspecified cervical region (06/22/22) Muscle weakness (generalized) (06/22/22) Physical Therapy Treatment Note PT-OP-A Visit Information Start: 05/18/22 19:05 Freq: Status: Active Protocol: Document 06/22/22 10:38 LRN (Rec: 06/22/22 11:21 LRN [id number]) Out-Patient Physical Therapy Visit Information Visit Information Visit Type Treatment Note Visit Start Time 10:38 Visit Stop Time 11:20 Total Visit Minutes 42 Visit Number 8 Evaluation Information Evaluation Date 05/22/22 Precautions Precautions Arthritis, Diabetes type II. 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 Vertigo 6-7 yrs ago. Hx of skin CA near bridge of nose, controled HBP. PT-OP-B Current Condition Start: 05/18/22 19:05 Freq: Status: Active Protocol: Document 05/22/22 11:21 LRN (Rec: 05/22/22 12:37 LRN [id number]) Current Condition History of Current Condition Onset Date February 2022. Current Complaints R lateral forearm pain (at elbow), & L posterior shoulder pain. History of Current Condition Insidious onset of R lateral elbow and L posterior shoulder pain. Pt reports years ago having R tennis elbow and it feels like it came back. Pt states he golfs but it doesn't interfer with golfing. He states his L posterior shoulder pain feels like it is deep inside, but not muscle. Can feel pain on the medial border of the L scapula. R elbow pain is primarily present with twisting of his forearm, palm up position. Prior Treatments and Tests R tennis elbow - mid 80's had PT with good results. Denies imaging. Treatment Goals Patient/Caregiver Goals Pt goal with therapy is eliminate the pain in the R elbow with washing of back, holding cell phone to ear, and reaching for things. Pt goal for L shoulder is to eliminate pain with sleeping, and reaching L arm across the chest and reaching behind, dressing (removing and putting on tops). Prior Functional Status Baseline Function- ADL's Independent Baseline Function- Mobility Independent Baseline Function- Recreation/Hobbies Gardening and Golfing without pain. Baseline Function- Other Slept on L side. Used to wake 1-2x/night. Current Functional Impairments (Reported) Functional Limitations- ADL's R elbow pain with reaching for things out to side, washing back (palm facing his back), pulling weeds/yard work, holding cell phone, . L shoulder pain with reaching for things out to side or reaching for tools in shed outside, dressing, reaching across his chest. Functional Limitations- Other Sleeps mostly on the back because not able to sleep on L side due to L shoulder pain. Wakes 2-3x/night. Personal Factors Other Personal Factors That May Effect Arthritis, Hx of skin CA near Therapy/Recovery bridge of nose. PT-OP-C Subjective Start: 05/18/22 19:05 Freq: Status: Active Protocol: Document 06/22/22 10:38 LRN (Rec: 06/22/22 11:21 LRN [id number]) OP-PT Subjective Patient Comments Patient Comments L shoulder pain is different, now felt in L lateral deltoid. Pain behind the shoulder is gone. Had a massage and was worked on for 1.5 hrs. Having another massage tomorrow. PT-OP-E Functional Tests Start: 05/18/22 19:05 Freq: Status: Active Protocol: Document 05/26/22 11:23 LRN (Rec: 05/26/22 12:16 LRN [id number]) Functional Tests Apley's Scratch Test Action 1- Left Lateral R shoulder Action 1- Right Posterior L Scapula Action 2- Left T3 Action 2- Right T3 Action 3- Left T9 Action 3- Right T10 PT-OP-H Neuro Start: 05/18/22 19:05 Freq: Status: Active Protocol: Document 05/26/22 11:23 LRN (Rec: 05/26/22 12:18 LRN [id number]) Deep Tendon Reflex & Clonus Assessment Deep Tendon Reflex Bilateral Tricep Deep Tendon Reflex 1+ Diminished Bilateral Bicep Deep Tendon Reflex 2+ Normal PT-OP-J Posture/Palpation/Skin Start: 05/18/22 19:05 Freq: Status: Active Protocol: Document 05/22/22 11:21 LRN (Rec: 05/22/22 12:37 LRN [id number]) Posture Evaluation Position Standing Head/C-Spine Posture Forward Head T-Spine Posture Rotation Right,Increased Kyphosis L-Spine Posture Flattened,Shifted Right Shoulder Posture (L) Elevated Scapula Posture (L) Retracted,(L) Rotated Down PT-OP-K Range of Motion Start: 05/18/22 19:05 Freq: Status: Active Protocol: Document 05/26/22 11:23 LRN (Rec: 05/26/22 12:16 LRN [id number]) Wrist Goniometric Range of Motion ROM Limitations Comments Bilateral wrist AROM is WFL for pt's age. PT-OP-L Special Tests Start: 05/18/22 19:05 Freq: Status: Active Protocol: Document 05/26/22 11:23 LRN (Rec: 05/26/22 12:20 LRN [id number]) Special Tests Cervical Spine Special Tests Vertebral Artery Test Results Negative bilaterally Comments Cervical mobility for testing was extremely limited. PT-OP-M Strength Start: 05/18/22 19:05 Freq: Status: Active Protocol: Document 05/26/22 11:23 LRN (Rec: 05/26/22 12:16 LRN [id number]) Wrist Strength Wrist Manual Muscle Testing Right Flexion (C7) 5 Normal Extension (C6) 5 Normal Ulnar Deviation 5 Normal Radial Deviation 5 Normal Left Flexion (C7) 4+ Good+ Extension (C6) 4+ Good+ Ulnar Deviation 5 Normal Radial Deviation 5 Normal Hand Solution Sales Senior Executive/Pinch Strength Hand Dominance Hand Dominance Left Hand Strength Left Comments KGS: 38, 40, 38 (Standard Solution Sales Senior Executive Strength Norm for 75+ yo males is 24.9 kg) Right Comments KGS: 32, 30, 30 (Standard Solution Sales Senior Executive Strength Norm for 75+ yo males is 29.8 kg) PT-OP-Q Treatments Start: 05/18/22 19:05 Freq: Status: Active Protocol: Document 06/22/22 10:38 LRN (Rec: 06/22/22 11:21 LRN [id number]) Therapeutic Exercises Supine Exercises Neck Elongation Supine Exercise Name Neck Elongation Reps/Minutes 5SH, 10 x 2 Standing Exercises Lat Pull down Standing Exercise Name Lat Pull Down Equipment Used Lev 2 TB Reps/Minutes 10x 3 Shoulder AD Standing Exercise Name Shldr AD Side left Equipment Used LEv 2 TB assisting shoulder AB Reps/Minutes 15x 2 each Manual Therapy Treatment Soft Tissue Mobilization Cervical Body Location Posterior spinal neck muscles Mobilization Type Myofascial Release,Sustained Pressure Intensity/Depth superficial to deep Body Position Supine L Supraspatus Body Location L Supraspinatus Mobilization Type Sustained Pressure Intensity/Depth Moderate Body Position Supine Joint Mobilizations Neck Joint C3 on C4, C4 on C5 Direction Posterior glide Grade II Body Position Supine Reps/Duration 3' Manual Traction Cervical Details Manual C. tx angle: neutral, 30 degs flex Body Position Supine Reps/Duration 10' Comments Intermittently performed during manual therapy. PT-OP-R Modalities Start: 05/18/22 19:05 Freq: Status: Active Protocol: Document 05/29/22 10:35 LRN (Rec: 05/29/22 11:19 LRN [id number]) Ultrasound Therapy Treatment R wrist extensors at lateral epicondyle Treatment Duration (minutes) 4 Patient Position Supine Coupling Medium Ultrasound Gel Applicator Size (cm2) 2 Frequency Setting (mHz) 3 Mode Setting Pulsed Duty Cycle 10% Intensity Setting (w/cm2) 0.8 Comments Pt felt tingling and vibration ; therefore discontinued treatment due to unable to reduce intensity farther. PT-OP-T Assessment and Plan Start: 05/18/22 19:05 Freq: Status: Active Protocol: Document 06/22/22 10:38 LRN (Rec: 06/22/22 11:21 LRN [id number]) Physical Therapy Assessment Goals Three Impairment R lateral elbow pain. Short Term Goal (STG) Pt will be educated in a self care HEP of STM, stretch, light strengthening and self care pain management techniques (cold packs). 06/01/22: Pt educated in HEP: cervical active rot stretch & use of hot pack for pain management (due to pt's report of lessening of pain with hot shower). 06/12/22: Pt demonstrated good knowledge of R elbow care of (stretch, ex, STM, & knowledge of use of ice. STG Duration 06/12/22 (06/12/22: MET GOAL ) Intermediate Goal (LTG) Eliminate R elbow pain with washing of back, holding cell phone to ear, and reaching for things out to side. LTG Duration 08/20/22 (06/12/22: MET GOAL ) Two Impairment L shoulder pain rated 4/10 Short Term Goal (STG) Decrease L posterior shoulder pain to 2/10 with improved ability to sleep at night, waking at prior level of function of 1-2x/night, not due to pain. (06/06/22: No pain during the night, last night no pain). (06/12/22: No pain at night. STG Duration 07/08/22 (06/12/22: MET GOAL ) Rubber Goods Inspector Goal (LTG) Eliminate pain with reaching L arm across the chest, reaching behind, and with dressing (removing and putting on tops). (06/06/22: When puling shirt off has pain) (06/12/22: Reaching across chest pain is 3/10, otherwise 0/10). LTG Duration 08/20/22 (06/12/22: Improving) One Impairment Lacks appropriate self care HEP. Short Term Goal (STG) Pt will be educated in proper head/neck/upper back posture to minimized radicular pain. STG Duration 06/05/22 (06/01/22: MET GOAL) Intermediate Goal (LTG) Pt will be independent in a self care HEP of neck, shoulder and elbow ex's to manage his pain and condition. 05/26/22: HEP: TBand ER strengthening. 06/01/22: HEP: Neck AROM & posture education. 06/08/22: HEP: Wrist stretch to extensors & AROM ext. 06/12/22: I/S in Lev Scap/UT stretch. LTG Duration 08/20/22 (06/12/22: Self care I/S completed for neck, elbow ) Assessment Summary Assessment L lateral deltoid pain reduced with arm movement with manual c. tx and after STM; therefore probable shoulder pain is cervical in nature. Decrease in pain from 5/10 to 1/10 with manual traction and STM to C3-C7. Onset possibly from pt sleeping with too thick of pillow in supine. Physical Therapy Plan Frequency and Duration Frequency of Treatment 1x/Week Plan of Care Start Date 05/22/22 Plan of Care End Date 08/20/22 Next Visit Focus/Plan Next Note Type Treatment Note Next Visit Plan Decrease therapy to 1x/week. Pt continuing with massage therapy. Continue RC strengthening/ stabilization if lateral deltoid pain eliminated, cont L RC and scapular depression strengthening with horiz AD mvmt. Add to HEP: RC and Scap depression strengthening. Try L Supraspinatus strengthening if he can do painfree. Educate HEP: STM (L shoulder), stretch L shoulder, & progress. As needed: Manual C.tx and neck stretches (UT & rotators) HEP: of L shoulder.
--- NOTE | 2022-07-04 17:43 | PT.OTN ---
Current Diagnoses Pain in left shoulder (07/04/22) Pain in right elbow (07/04/22) Cervical disc disorder with radiculopathy, unspecified cervical region (07/04/22) Muscle weakness (generalized) (07/04/22) Physical Therapy Treatment Note PT-OP-A Visit Information Start: 05/18/22 19:05 Freq: Status: Active Protocol: Document 07/04/22 13:01 LRN (Rec: 07/04/22 13:49 LRN [id number]) Out-Patient Physical Therapy Visit Information Visit Information Visit Type Treatment Note Visit Start Time 13:01 Visit Stop Time 13:45 Total Visit Minutes 44 Visit Number 9 Evaluation Information Evaluation Date 05/22/22 Precautions Precautions Arthritis, Diabetes type II. 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 Vertigo 6-7 yrs ago. Hx of skin CA near bridge of nose, controled HBP. PT-OP-B Current Condition Start: 05/18/22 19:05 Freq: Status: Active Protocol: Document 05/22/22 11:21 LRN (Rec: 05/22/22 12:37 LRN [id number]) Current Condition History of Current Condition Onset Date February 2022. Current Complaints R lateral forearm pain (at elbow), & L posterior shoulder pain. History of Current Condition Insidious onset of R lateral elbow and L posterior shoulder pain. Pt reports years ago having R tennis elbow and it feels like it came back. Pt states he golfs but it doesn't interfer with golfing. He states his L posterior shoulder pain feels like it is deep inside, but not muscle. Can feel pain on the medial border of the L scapula. R elbow pain is primarily present with twisting of his forearm, palm up position. Prior Treatments and Tests R tennis elbow - mid 80's had PT with good results. Denies imaging. Treatment Goals Patient/Caregiver Goals Pt goal with therapy is eliminate the pain in the R elbow with washing of back, holding cell phone to ear, and reaching for things. Pt goal for L shoulder is to eliminate pain with sleeping, and reaching L arm across the chest and reaching behind, dressing (removing and putting on tops). Prior Functional Status Baseline Function- ADL's Independent Baseline Function- Mobility Independent Baseline Function- Recreation/Hobbies Gardening and Golfing without pain. Baseline Function- Other Slept on L side. Used to wake 1-2x/night. Current Functional Impairments (Reported) Functional Limitations- ADL's R elbow pain with reaching for things out to side, washing back (palm facing his back), pulling weeds/yard work, holding cell phone, . L shoulder pain with reaching for things out to side or reaching for tools in shed outside, dressing, reaching across his chest. Functional Limitations- Other Sleeps mostly on the back because not able to sleep on L side due to L shoulder pain. Wakes 2-3x/night. Personal Factors Other Personal Factors That May Effect Arthritis, Hx of skin CA near Therapy/Recovery bridge of nose. PT-OP-C Subjective Start: 05/18/22 19:05 Freq: Status: Active Protocol: Document 07/04/22 13:01 LRN (Rec: 07/04/22 13:49 LRN [id number]) OP-PT Subjective Patient Comments Patient Comments L shoulder pain is 1-2/10 nothing I can't live with. Neck doesn't crack or pop when turning head anymore. PT-OP-E Functional Tests Start: 05/18/22 19:05 Freq: Status: Active Protocol: Document 05/26/22 11:23 LRN (Rec: 05/26/22 12:16 LRN [id number]) Functional Tests Apley's Scratch Test Action 1- Left Lateral R shoulder Action 1- Right Posterior L Scapula Action 2- Left T3 Action 2- Right T3 Action 3- Left T9 Action 3- Right T10 PT-OP-H Neuro Start: 05/18/22 19:05 Freq: Status: Active Protocol: Document 05/26/22 11:23 LRN (Rec: 05/26/22 12:18 LRN [id number]) Deep Tendon Reflex & Clonus Assessment Deep Tendon Reflex Bilateral Tricep Deep Tendon Reflex 1+ Diminished Bilateral Bicep Deep Tendon Reflex 2+ Normal PT-OP-J Posture/Palpation/Skin Start: 05/18/22 19:05 Freq: Status: Active Protocol: Document 05/22/22 11:21 LRN (Rec: 05/22/22 12:37 LRN [id number]) Posture Evaluation Position Standing Head/C-Spine Posture Forward Head T-Spine Posture Rotation Right,Increased Kyphosis L-Spine Posture Flattened,Shifted Right Shoulder Posture (L) Elevated Scapula Posture (L) Retracted,(L) Rotated Down PT-OP-K Range of Motion Start: 05/18/22 19:05 Freq: Status: Active Protocol: Document 05/26/22 11:23 LRN (Rec: 05/26/22 12:16 LRN [id number]) Wrist Goniometric Range of Motion ROM Limitations Comments Bilateral wrist AROM is WFL for pt's age. PT-OP-L Special Tests Start: 05/18/22 19:05 Freq: Status: Active Protocol: Document 05/26/22 11:23 LRN (Rec: 05/26/22 12:20 LRN [id number]) Special Tests Cervical Spine Special Tests Vertebral Artery Test Results Negative bilaterally Comments Cervical mobility for testing was extremely limited. PT-OP-M Strength Start: 05/18/22 19:05 Freq: Status: Active Protocol: Document 05/26/22 11:23 LRN (Rec: 05/26/22 12:16 LRN [id number]) Wrist Strength Wrist Manual Muscle Testing Right Flexion (C7) 5 Normal Extension (C6) 5 Normal Ulnar Deviation 5 Normal Radial Deviation 5 Normal Left Flexion (C7) 4+ Good+ Extension (C6) 4+ Good+ Ulnar Deviation 5 Normal Radial Deviation 5 Normal Hand Talent Acquisition Assistant/Pinch Strength Hand Dominance Hand Dominance Left Hand Strength Left Comments KGS: 38, 40, 38 (Standard Talent Acquisition Assistant Strength Norm for 75+ yo males is 24.9 kg) Right Comments KGS: 32, 30, 30 (Standard Talent Acquisition Assistant Strength Norm for 75+ yo males is 29.8 kg) PT-OP-Q Treatments Start: 05/18/22 19:05 Freq: Status: Active Protocol: Document 07/04/22 13:01 LRN (Rec: 07/04/22 13:49 LRN [id number]) Cardio Equipment Upper Body Ergometer (UBE) Duration (Minutes) 7 RPM 70 Seat Position 11 Height 3 Other 2' bkwd, 5' fwd Therapeutic Exercises Sitting Exercises Shoulder ER strengthening Sitting Exercise Name Shoulder ER strengthening ( elbow in by side) Side bilateral Equipment Used Lev 2 TB Reps/Minutes 15x 2 Standing Exercises Supraspinatus strengthening Standing Exercise Name Empty can lifts Side bilateral Reps/Minutes 15x Comments No pain Shoulder Horiz AD Standing Exercise Name Shoulder Horiz AD - with cuing for scapular depression Side left Reps/Minutes 15x 2 Comments No pain with cuing of scapula depression Lat Pull down Standing Exercise Name Lat Pull Down Equipment Used Lev 2 TB Reps/Minutes 10x 3 Comments Much phys & v cuing needed Shoulder Ext Standing Exercise Name Shoulder Ext/Scapular depression Side bilateral Equipment Used Lev 2 TB Reps/Minutes 15x 2 Comments Cuing for scapular retraction & depression Shoulder ER Standing Exercise Name ER strengthening in painfree range Side left Resistance towel roll under elbow Equipment Used Lev 2 TB Reps/Minutes 10x 3 Comments Cuing to keep elbow by side. Shoulder IR Standing Exercise Name IR strengthening Side left Resistance towel roll under elbow Equipment Used Lev 2 TB Reps/Minutes 10x 3 Comments Cuing to keep elbow by side. Manual Therapy Treatment Soft Tissue Mobilization R lateral wrist extensors Body Location R lateral Wrist extensors Mobilization Type Strumming Intensity/Depth Deep Body Position Supine Comments Pt pain is very deep along lateral epicondyle along the distal radius (location of radial n).. Self-Care/Home Management Treatment Education Patient Education Home Exercise Program Activities Self-Care/Home Management Activities Issued & reviewed HEP: RC strengthening ex's with Lev2 TB and strap issued. Ex's: ER/IR/Row/Ext/Lat pull down, Horiz ABD. PT-OP-R Modalities Start: 05/18/22 19:05 Freq: Status: Active Protocol: Document 05/29/22 10:35 LRN (Rec: 05/29/22 11:19 LRN [id number]) Ultrasound Therapy Treatment R wrist extensors at lateral epicondyle Treatment Duration (minutes) 4 Patient Position Supine Coupling Medium Ultrasound Gel Applicator Size (cm2) 2 Frequency Setting (mHz) 3 Mode Setting Pulsed Duty Cycle 10% Intensity Setting (w/cm2) 0.8 Comments Pt felt tingling and vibration ; therefore discontinued treatment due to unable to reduce intensity farther. PT-OP-T Assessment and Plan Start: 05/18/22 19:05 Freq: Status: Active Protocol: Document 07/04/22 13:01 LRN (Rec: 07/04/22 13:49 LRN [id number]) Physical Therapy Assessment Goals Three Impairment R lateral elbow pain. Short Term Goal (STG) Pt will be educated in a self care HEP of STM, stretch, light strengthening and self care pain management techniques (cold packs). 06/01/22: Pt educated in HEP: cervical active rot stretch & use of hot pack for pain management (due to pt's report of lessening of pain with hot shower). 06/12/22: Pt demonstrated good knowledge of R elbow care of (stretch, ex, STM, & knowledge of use of ice. STG Duration 06/12/22 (06/12/22: MET GOAL ) Process Control Supervisor Goal (LTG) Eliminate R elbow pain with washing of back, holding cell phone to ear, and reaching for things out to side. LTG Duration 08/20/22 (06/12/22: MET GOAL ) Two Impairment L shoulder pain rated 4/10 Short Term Goal (STG) Decrease L posterior shoulder pain to 2/10 with improved ability to sleep at night, waking at prior level of function of 1-2x/night, not due to pain. (06/06/22: No pain during the night, last night no pain). (06/12/22: No pain at night. STG Duration 07/08/22 (06/12/22: MET GOAL ) Process Control Supervisor Goal (LTG) Eliminate pain with reaching L arm across the chest, reaching behind, and with dressing (removing and putting on tops). (06/06/22: When puling shirt off has pain) (06/12/22: Reaching across chest pain is 3/10, otherwise 0/10). (07/04/22: Pain rated 1-2/10). LTG Duration 08/20/22 (06/12/22: Improving) One Impairment Lacks appropriate self care HEP. Short Term Goal (STG) Pt will be educated in proper head/neck/upper back posture to minimized radicular pain. STG Duration 06/05/22 (06/01/22: MET GOAL) Shelter Goal (LTG) Pt will be independent in a self care HEP of neck, shoulder and elbow ex's to manage his pain and condition. 05/26/22: HEP: TBand ER strengthening. 06/01/22: HEP: Neck AROM & posture education. 06/08/22: HEP: Wrist stretch to extensors & AROM ext. 06/12/22: I/S in Lev Scap/UT stretch. LTG Duration 08/20/22 (06/12/22: Self care I/S completed for neck, elbow ) Assessment Summary Assessment Pt R forearm pain with palpation appears to be in region of radial n along radius of the forearm. Pt appears to have no muscle tension or tenderness of the wrist extensors. Overall he has no complaints of pain, only tension in the morning, that is resolved with morning showers. His L shoulder pain is only with shoulder horiz AD that appears to be manageable with cuing for scapular depression. He has no pain with Supraspinatus strengthening. The pt has been issued HEP to address RC strengthening and scapular stabilization; therefore if pt cont's to be able to manage his pain he will be ready for DC to HEP after review of HEP. Physical Therapy Plan Frequency and Duration Frequency of Treatment 1x/Week Plan of Care Start Date 05/22/22 Plan of Care End Date 08/20/22 Next Visit Focus/Plan Next Note Type Treatment Note Next Visit Plan DC next visit. Add HEP scapular stabilization for painfree horiz AD mvmt as needed. As needed: Manual C.tx and neck stretches (UT & rotators)
--- NOTE | 2022-07-10 10:04 | PT-OP ANOTE ---
Per phone conv pt requests DC from therapy due to in ICU from complications from colonoscopy and will not be able to attend further therapy.
--- NOTE | 2022-07-10 10:16 | PT.OPDS ---
Current Diagnoses Pain in left shoulder (07/04/22) Pain in right elbow (07/04/22) Cervical disc disorder with radiculopathy, unspecified cervical region (07/04/22) Muscle weakness (generalized) (07/04/22) Visit Care Team Role Provider Type Caleb Plata MD Attending Provider Physician Family Provider Primary Care Provider Referring Provider Specialty: Internal Medicine Address: [address] [place] [address], [facility] Email: [email or web address] Visit Number Visit Number 9 Discharge Summary PT-OP-B Current Condition Start: 05/18/22 19:05 Freq: Status: Active Protocol: Document 05/22/22 11:21 LRN (Rec: 05/22/22 12:37 LRN [id number]) Current Condition History of Current Condition Onset Date February 2022. Current Complaints R lateral forearm pain (at elbow), & L posterior shoulder pain. History of Current Condition Insidious onset of R lateral elbow and L posterior shoulder pain. Pt reports years ago having R tennis elbow and it feels like it came back. Pt states he golfs but it doesn't interfer with golfing. He states his L posterior shoulder pain feels like it is deep inside, but not muscle. Can feel pain on the medial border of the L scapula. R elbow pain is primarily present with twisting of his forearm, palm up position. Prior Treatments and Tests R tennis elbow - mid 80's had PT with good results. Denies imaging. Treatment Goals Patient/Caregiver Goals Pt goal with therapy is eliminate the pain in the R elbow with washing of back, holding cell phone to ear, and reaching for things. Pt goal for L shoulder is to eliminate pain with sleeping, and reaching L arm across the chest and reaching behind, dressing (removing and putting on tops). Prior Functional Status Baseline Function- ADL's Independent Baseline Function- Mobility Independent Baseline Function- Recreation/Hobbies Gardening and Golfing without pain. Baseline Function- Other Slept on L side. Used to wake 1-2x/night. Current Functional Impairments (Reported) Functional Limitations- ADL's R elbow pain with reaching for things out to side, washing back (palm facing his back), pulling weeds/yard work, holding cell phone, . L shoulder pain with reaching for things out to side or reaching for tools in shed outside, dressing, reaching across his chest. Functional Limitations- Other Sleeps mostly on the back because not able to sleep on L side due to L shoulder pain. Wakes 2-3x/night. Personal Factors Other Personal Factors That May Effect Arthritis, Hx of skin CA near Therapy/Recovery bridge of nose. PT-OP-C Subjective Start: 05/18/22 19:05 Freq: Status: Active Protocol: Document 07/10/22 10:05 LRN (Rec: 07/10/22 10:15 LRN [id number]) OP-PT Subjective Patient Comments Patient Comments Per phone conversation pt requests DC from therapy due to in ICU. PT-OP-E Functional Tests Start: 05/18/22 19:05 Freq: Status: Active Protocol: Document 05/26/22 11:23 LRN (Rec: 05/26/22 12:16 LRN [id number]) Functional Tests Apley's Scratch Test Action 1- Left Lateral R shoulder Action 1- Right Posterior L Scapula Action 2- Left T3 Action 2- Right T3 Action 3- Left T9 Action 3- Right T10 PT-OP-H Neuro Start: 05/18/22 19:05 Freq: Status: Active Protocol: Document 05/26/22 11:23 LRN (Rec: 05/26/22 12:18 LRN [id number]) Deep Tendon Reflex & Clonus Assessment Deep Tendon Reflex Bilateral Tricep Deep Tendon Reflex 1+ Diminished Bilateral Bicep Deep Tendon Reflex 2+ Normal PT-OP-J Posture/Palpation/Skin Start: 05/18/22 19:05 Freq: Status: Active Protocol: Document 05/22/22 11:21 LRN (Rec: 05/22/22 12:37 LRN [id number]) Posture Evaluation Position Standing Head/C-Spine Posture Forward Head T-Spine Posture Rotation Right,Increased Kyphosis L-Spine Posture Flattened,Shifted Right Shoulder Posture (L) Elevated Scapula Posture (L) Retracted,(L) Rotated Down PT-OP-K Range of Motion Start: 05/18/22 19:05 Freq: Status: Active Protocol: Document 05/26/22 11:23 LRN (Rec: 05/26/22 12:16 LRN [id number]) Wrist Goniometric Range of Motion ROM Limitations Comments Bilateral wrist AROM is WFL for pt's age. PT-OP-L Special Tests Start: 05/18/22 19:05 Freq: Status: Active Protocol: Document 05/26/22 11:23 LRN (Rec: 05/26/22 12:20 LRN [id number]) Special Tests Cervical Spine Special Tests Vertebral Artery Test Results Negative bilaterally Comments Cervical mobility for testing was extremely limited. PT-OP-M Strength Start: 05/18/22 19:05 Freq: Status: Active Protocol: Document 05/26/22 11:23 LRN (Rec: 05/26/22 12:16 LRN [id number]) Wrist Strength Wrist Manual Muscle Testing Right Flexion (C7) 5 Normal Extension (C6) 5 Normal Ulnar Deviation 5 Normal Radial Deviation 5 Normal Left Flexion (C7) 4+ Good+ Extension (C6) 4+ Good+ Ulnar Deviation 5 Normal Radial Deviation 5 Normal Hand Armorer Technician/Pinch Strength Hand Dominance Hand Dominance Left Hand Strength Left Comments KGS: 38, 40, 38 (Standard Armorer Technician Strength Norm for 75+ yo males is 24.9 kg) Right Comments KGS: 32, 30, 30 (Standard Armorer Technician Strength Norm for 75+ yo males is 29.8 kg) PT-OP-T Assessment and Plan Start: 05/18/22 19:05 Freq: Status: Active Protocol: Document 07/10/22 10:05 LRN (Rec: 07/10/22 10:15 LRN [id number]) Physical Therapy Assessment Assessment Summary Assessment Pt overall has done well with therapy with reports of R forearm pain with palpation that was along the radial n path down the forearm. He has no complaints of pain in the R forearm, only tension in the morning, that is resolved with morning showers. His L shoulder pain presents as + impingement that is managed with scapular depression. He has no pain with Supraspinatus strengthening; therefore poor scapulohumeral rhythm (rotator cuff dysfunction) appears to be causing L shoulder pain with shoulder horiz AD. The pt has been issued HEP to address RC strengthening and scapular stabilization; therefore the pt is being discharged to his HEP of RC ex 's that he has been previously instructed in and issued. Physical Therapy Plan Discharge Physical Therapy Discharge Reasons Patient Request Discharge Comments in ICU, wanting no further physical therapy at this time. Thank you for your referral.
== END 2022-07-11 10:22 | disposition home or self-care (01) ==
LOC: PHYS 13:00
PROVIDERS: Family Provider Internal Medicine; PCP Internal Medicine; Referring Provider Internal Medicine; Visit Provider Internal Medicine
DX: M25.521 Pain in right elbow (principal); M25.512 Pain in left shoulder; M62.81 Muscle weakness (generalized); M50.10 Cervical disc disorder with radiculopathy, unspecified cervical region
CPT/HCPCS: 97110; 97140; 97162; 97535

== ENCOUNTER → 2022-09-12 08:54 | Outpatient (CLI) | payer MEDICARE, OTHER, SELFPAY ==
[2022-09-12 09:53] LABS: Alanine Aminotransferase 23 IU/L (<50); Alkaline Phosphatase 81 U/L (38-126); Aspartate Aminotransferase 26 IU/L (17-59); BUN Creatinine Ratio 23.8 (6-22); Bilirubin Total 0.6 mg/dL (0.2-1.3); Blood Urea Nitrogen 24 mg/dL (9-20); Calcium 9.2 mg/dL (8.4-10.2); Carbon Dioxide 26 mmol/L (22-32); Chloride 101 mmol/L (98-107); Cholesterol 106 mg/dL (140-199); Estimated Glomerular Filt Rate > 60 mL/min (>60); Glucose 160 mg/dL (80-110); HDL Cholesterol 38 mg/dL (40-60); HEMOLYSIS < 15 (0-50); LDL Cholesterol Calculated 50 mg/dL (<100); Potassium 4.2 mmol/L (3.4-5.1); Sodium 137 mmol/L (137-145); Total Protein 7.3 g/dL (6.3-8.2); Triglycerides 88 mg/dL (35-150)
[2022-09-12 10:11] LABS: Hemoglobin A1C% w Est Avg Glu 6.7 % (4.0-6.0)
[2022-09-12 10:22] LABS: Prostate Specific Antigen 2.44 ng/mL (0.10-4.00)
[2022-09-12 11:25] LABS: Creatinine Urine Random 102.3 mg/dL
[2022-09-12 11:31] LABS: Microalbumi Creatinin Ratio Ur 26.3 ug/mg CR (<30); Microalbumin Urine Random 2.7 mg/dL (0-1.6)
[2022-09-15 16:09] LABS: Albumin 4.2 g/dL (3.5-5.0); Albumin Globulin Ratio 1.4 (1.0-2.8); Globulin 3.1 g/dL (1.7-4.1)
== END ==
PROVIDERS: Family Provider Internal Medicine; PCP Internal Medicine; Referring Provider Internal Medicine; Visit Provider Internal Medicine
DX: E11.59 Type 2 diabetes mellitus with other circulatory complications (principal); N40.1 Benign prostatic hyperplasia with lower urinary tract symptoms; E78.2 Mixed hyperlipidemia; I67.9 Cerebrovascular disease, unspecified; N13.8 Other obstructive and reflux uropathy
CPT/HCPCS: 36415; 80053; 80061; 82043; 82570; 83036; 84153

== ENCOUNTER → 2023-02-13 08:13 | Outpatient (CLI) | payer MEDICARE, OTHER, SELFPAY ==
[2023-02-13 08:55] LABS: Estimated Glomerular Filt Rate > 60 mL/min (>60)
== END ==
PROVIDERS: Family Provider Internal Medicine; PCP Internal Medicine; Referring Provider Specialist; Visit Provider Specialist
DX: N40.1 Benign prostatic hyperplasia with lower urinary tract symptoms (principal); N13.8 Other obstructive and reflux uropathy
CPT/HCPCS: 36415; 82565

== ENCOUNTER → 2023-02-15 10:05 | Outpatient (CLI) | payer MEDICARE, OTHER, SELFPAY ==
--- NOTE | 2023-02-15 10:10 | DI.CT.S_ITS ---
PROCEDURE: CT SOFT TISSUE NECK W CON INDICATIONS: MASS OF RT PAROTID GLAND / TOBACCO DEPENDENCE TECHNIQUE: After the administration of intravenous contrast, 3.0 mm axial sections acquired from the sella to the aortic arch. 3 mm thick coronal and sagittal reformats were generated. For radiation dose reduction, the following was used: automated exposure control. COMPARISON: [facility], CT, CT SOFT TISSUE NECK W CON, 12/23/2020, 13:55. FINDINGS: Skull Base: The visualized intracranial contents, skull, and orbits are unremarkable. Visualized paranasal sinuses are clear. Pharynx and Larynx: The nasopharyngeal airway is patent and midline. Parapharyngeal soft tissues including palatine tonsils and base of the tongue are normal. Retropharyngeal space unremarkable. Normal appearance of the false and true vocal cords. Muscles and Fascial Planes: Fascial planes are well maintained. No abscess or mass lesion. Lymph Nodes: No evidence of adenopathy. Vasculature: Unremarkable. Submandibular and Parotid Glands: Right intraparotid cystic structure is slightly smaller than the prior exam now measuring 1.6 x 2.5 cm, previously 2.0 x 2.9 cm. Lesion is now partially loculated, there is superior capsular wall thickening measuring up to 3 mm. Thyroid: Unremarkable. No enlarged or calcified nodules. Bones: No acute fracture. No osteolytic or blastic lesion is evident. Normal bone mineralization. Multilevel degenerative disc disease and arthropathy in the cervical spine. Lung Apices: The visualized lung apices are clear. 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 Differential considerations include Warthin's tumor, pleomorphic adenoma, other salivary gland tumors. Brachial cleft cyst would also be a consideration. Advise ENT consultation Approved by: Emory Davila M.D. on 02/15/2023 at 14:50
== END ==
PROVIDERS: Family Provider Internal Medicine; PCP Internal Medicine; Referring Provider Otolaryngology; Visit Provider Otolaryngology
DX: K11.8 Other diseases of salivary glands (principal); F17.200 Nicotine dependence, unspecified, uncomplicated
CPT/HCPCS: 70491; Q9967

== ENCOUNTER → 2023-03-01 09:44 | Outpatient (CLI) | payer MEDICARE, OTHER, SELFPAY ==
[2023-03-01 11:08] LABS: Prostate Specific Antigen 2.13 ng/mL (0.10-4.00)
[2023-03-02 06:35] LABS: Labcorp Hemoglobin (Hb) A1c 6.4 % (4.8-5.6)
== END ==
PROVIDERS: Specialist; Family Provider Internal Medicine; PCP Internal Medicine; Referring Provider Internal Medicine; Visit Provider Internal Medicine
DX: N40.1 Benign prostatic hyperplasia with lower urinary tract symptoms (principal); Z85.51 Personal history of malignant neoplasm of bladder
CPT/HCPCS: 36415; 83036; 84153

== ENCOUNTER → 2023-03-07 09:46 | Outpatient (CLI) | payer MEDICARE, OTHER, SELFPAY ==
--- NOTE | 2023-03-07 09:48 | DI.RAD.S_ITS ---
PROCEDURE: XR CHEST 2V INDICATIONS: weight loss, cough, tobacco use TECHNIQUE: 2 views of the chest were acquired. COMPARISON: [facility], MARY GRACE, XR CHEST 1V, 08/31/2021, 12:58. [facility], MARY GRACE, CHEST 2 VIEW, 01/13/2014, 15:16. FINDINGS: Surgical changes and devices: None. Lungs and pleura: Lungs are clear. No pleural effusions or pneumothorax. Mediastinum: Mediastinal contours are normal. Heart size is normal. Bones and chest wall: No suspicious bony abnormalities. Soft tissues appear unremarkable. IMPRESSION: No acute cardiopulmonary process. Dictated by: He Headley M.D. on 03/07/2023 at 13:02 Approved by: He Headley M.D. on 03/07/2023 at 13:03
== END ==
PROVIDERS: Family Provider Internal Medicine; PCP Internal Medicine; Referring Provider Internal Medicine; Visit Provider Internal Medicine
DX: R05.9 Cough, unspecified (principal)
CPT/HCPCS: 71046

== ENCOUNTER → 2023-03-12 11:02 | Outpatient (CLI) | payer MEDICARE, OTHER, SELFPAY ==
[2023-03-13 19:13] LABS: Fecal Immunochemical Test Negative (Negative)
== END ==
PROVIDERS: Family Provider Internal Medicine; PCP Internal Medicine; Referring Provider Internal Medicine; Visit Provider Internal Medicine
DX: Z12.11 Encounter for screening for malignant neoplasm of colon (principal)
CPT/HCPCS: 82274

== ENCOUNTER → 2023-04-12 09:29 | Outpatient (CLI) | payer MEDICARE, OTHER, SELFPAY ==
[2023-04-12 10:17] LABS: Estimated Glomerular Filt Rate > 60 mL/min (>60)
== END ==
PROVIDERS: Family Provider Internal Medicine; PCP Internal Medicine; Referring Provider Radiology Diagnostic Radiology; Visit Provider Radiology Diagnostic Radiology
DX: D37.030 Neoplasm of uncertain behavior of the parotid salivary glands (principal); N40.1 Benign prostatic hyperplasia with lower urinary tract symptoms; N13.8 Other obstructive and reflux uropathy; Z85.51 Personal history of malignant neoplasm of bladder
CPT/HCPCS: 36415; 51798; 52000; 81002; 82565; 99214

== ENCOUNTER → 2023-04-16 10:06 | Outpatient (CLI) | payer MEDICARE, OTHER, SELFPAY ==
--- NOTE | 2023-04-16 | DI.CT.S_ITS ---
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 Additional oblique axial 3.0 mm sections acquired through the pharynx. 3 mm thick coronal and sagittal reformats were generated. For radiation dose reduction, the following was used: automated exposure control. COMPARISON: [facility], CT, CT SOFT TISSUE NECK W CON, 02/15/2023, 10:14. [facility], CT, CT SOFT TISSUE NECK W CON, 12/23/2020, 13:55. FINDINGS: Image quality: Excellent. Lymph nodes: No enlarged lymph nodes seen throughout the neck. Vessels: Visualized vasculature appears patent. Neck spaces: The oropharynx, nasopharynx, and pharynx demonstrate no mucosal lesions. The vocal cords, false vocal cords, pyriform sinuses, epiglottis, vallecula, and tongue base all appear normal. Extramucosal spaces appear unremarkable. Glands: There is a cystic lesion again seen involving the right parotid gland, with thickened and irregular rim enhancement. The lesion measures approximately 3.1 x 1.7 cm in greatest axial dimension, with a craniocaudal extent of 3.7 cm. The left parotid gland is unremarkable. The submandibular glands appear normal. Thyroid gland demonstrates no significant abnormality. Miscellaneous: Visualized brain and orbits appear normal. Lung apices appear clear. Superficial soft tissues appear normal. Bones: No suspicious bony lesions. Visualized sinuses and mastoids appear unremarkable. At least moderate cervical spine degenerative change can be seen. IMPRESSION: Stable irregular cystic lesion with irregular rim enhancement involving the right parotid gland, which is similar to the prior CT study. No enlarged lymph nodes are seen. Dictated by: Hugo Ferrara M.D. on 04/16/2023 at 12:31 Approved by: Hugo Ferrara M.D. on 04/16/2023 at 12:38
== END ==
PROVIDERS: Family Provider Internal Medicine; PCP Internal Medicine; Referring Provider Otolaryngology; Visit Provider Otolaryngology
DX: D37.030 Neoplasm of uncertain behavior of the parotid salivary glands (principal)
CPT/HCPCS: 70491; Q9967

== ENCOUNTER → 2023-05-14 11:47 | Outpatient (CLI) | payer MEDICARE, OTHER, SELFPAY ==
[2023-05-14 12:58] LABS: Hemoglobin 13.9 g/dL (13.5-17.5); Mean Corpuscular Hemoglobin 36.8 PG (26-34); Mean Corpuscular Volume 108.2 fL (80-100); Platelet Count 291 X10^3/uL (150-400); Red Blood Cell Count 3.78 X10^6/uL (4.5-5.9); Red Cell Distribution Width 13.1 % (11.6-14.8); White Blood Cell Count 6.5 X10^3/uL (4.5-11.0)
[2023-05-14 13:12] LABS: Hemoglobin A1C% w Est Avg Glu 6.1 % (4.0-6.0)
[2023-05-14 13:24] LABS: Alanine Aminotransferase 29 IU/L (<50); Albumin 4.5 g/dL (3.5-5.0); Albumin Globulin Ratio 1.3 (1.0-2.8); Alkaline Phosphatase 76 U/L (38-126); Aspartate Aminotransferase 34 IU/L (17-59); BUN Creatinine Ratio 18.3 (6-22); Bilirubin Total 0.6 mg/dL (0.2-1.3); Blood Urea Nitrogen 19 mg/dL (9-20); Calcium 10.2 mg/dL (8.4-10.2); Carbon Dioxide 27 mmol/L (22-32); Chloride 103 mmol/L (98-107); Estimated Glomerular Filt Rate > 60 mL/min (>60); Globulin 3.4 g/dL (1.7-4.1); Glucose 169 mg/dL (80-110); HEMOLYSIS < 15 (0-50); Sodium 138 mmol/L (137-145); Total Protein 7.9 g/dL (6.3-8.2)
[2023-05-14 13:25] LABS: Potassium 5.9 mmol/L (3.4-5.1)
[2023-05-14 13:48] LABS: TSH w/ Reflex to FT4 1.15 uIU/mL (0.47-4.68)
[2023-05-14 15:49] LABS: Creatinine Urine Random 52.8 mg/dL
[2023-05-14 15:53] LABS: Microalbumi Creatinin Ratio Ur 73.8 ug/mg CR (<30); Microalbumin Urine Random 3.9 mg/dL (0-1.6)
== END ==
PROVIDERS: Family Provider Internal Medicine; PCP Internal Medicine; Referring Provider Internal Medicine; Visit Provider Internal Medicine
DX: E11.59 Type 2 diabetes mellitus with other circulatory complications (principal); E78.2 Mixed hyperlipidemia; I67.9 Cerebrovascular disease, unspecified; R63.4 Abnormal weight loss
CPT/HCPCS: 36415; 80053; 82043; 82570; 83036; 84443; 85027

== ENCOUNTER → 2023-05-15 15:53 | Outpatient (CLI) | payer MEDICARE, OTHER, SELFPAY ==
[2023-05-15 16:44] LABS: HEMOLYSIS < 15 (0-50)
[2023-05-15 16:46] LABS: Potassium 5.4 mmol/L (3.4-5.1)
== END ==
PROVIDERS: Family Provider Internal Medicine; PCP Internal Medicine; Referring Provider Internal Medicine; Visit Provider Internal Medicine
DX: E87.5 Hyperkalemia (principal)
CPT/HCPCS: 36415; 84132

== ENCOUNTER → 2023-05-21 08:47 | Outpatient (CLI) | payer MEDICARE, OTHER, SELFPAY ==
[2023-05-21 10:29] LABS: HEMOLYSIS < 15 (0-50)
[2023-05-21 10:32] LABS: Potassium 6.2 mmol/L (3.4-5.1)
== END ==
PROVIDERS: Family Provider Internal Medicine; PCP Internal Medicine; Referring Provider Internal Medicine; Visit Provider Internal Medicine
DX: E87.5 Hyperkalemia (principal)
CPT/HCPCS: 36415; 84132

== ENCOUNTER → 2023-05-24 09:38 | Outpatient (CLI) | payer MEDICARE, OTHER, SELFPAY ==
[2023-05-24 10:28] LABS: HEMOLYSIS 21 (0-50); Potassium 4.9 mmol/L (3.4-5.1)
== END ==
PROVIDERS: Family Provider Internal Medicine; PCP Internal Medicine; Referring Provider Internal Medicine; Visit Provider Internal Medicine
DX: E87.5 Hyperkalemia (principal)
CPT/HCPCS: 36415; 84132

== ENCOUNTER 2023-07-07 07:52 | Emergency (ER) | payer MEDICARE, OTHER, SELFPAY ==
[2023-07-07] VITALS (8 sets, daily range): BP systolic 144–159; BP diastolic 67–76; PULSE 82–104; RESP 16; TEMP 36.7–36.8; O2SAT 98–99; BMI 20.3
--- NOTE | 2023-07-07 08:21 | ED.SKABFB ---
HPI - Skin/Abscess/Foreign Bdy General Chief complaint: Neck Pain/Injury Stated complaint: drain from surgery not draining Time Seen by Provider: 07/07/23 07:55 Source: patient Mode of arrival: Ambulatory Limitations: no limitations History of Present Illness HPI narrative: Patient 78-year-old male who presents today postop day 2. After right parathyroidectomy secondary to cyst of the right parathyroid gland. He has a drain in the right side of his neck. It does have some serosanguineous fluid in it he reports that it is not draining as much as it used to. He has some right ear irritation which has been there since the surgery. He denies any fever chills or chest pain. He called the surgeon surgery was done at [facility] per patient surgeon was not concerned with the amount of fluid in the during. However patient was not happy with that answer any came to the ER. He has no other complaints. Related Data Home Medications Medication Instructions Recorded Confirmed PreserVision AREDS 1 cap PO BID 05/15/18 05/16/23 wzufnlpp-aal-xbran acid 0.4 1 tab PO QPM 05/15/18 05/16/23 mg-lycopene 300 mcg-lutein 250 mcg tablet (Centrum Silver) ipratropium bromide 21 mcg (0.03 2 spray intranasal DAILY 12/09/21 05/16/23 %) nasal spray prednisolone acetate 1 % eye 1 drp EYE-RIGHT DAILY 09/06/22 05/16/23 drops,suspension cyclosporine 0.05 % eye drops in a 1 drp EYE-BOTH BID 03/07/23 05/16/23 dropperette (Restasis) valacyclovir 1 gram tablet 1,000 mg PO BID 05/16/23 05/16/23 Previous Rx's Medication Instructions Recorded blood sugar diagnostic (OneTouch #100 ea 03/07/23 Ultra Test strips) metformin 500 mg tablet 500 mg PO BID #180 tabs 03/07/23 tamsulosin 0.4 mg capsule 0.4 mg PO ONCE PM #90 caps 05/04/23 atorvastatin 40 mg tablet 40 mg PO QPM #90 tabs 05/10/23 Allergies Allergy/AdvReac Type Severity Reaction Status Date / Time No Known Drug Allergies Allergy Verified 05/16/23 14:33 Review of Systems Review of Systems ROS Unobtainable: All systems reviewed & are unremarkable except as noted in HPI and below Patient History Medical History Cyst of right parotid gland Tobacco use disorder Type 2 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, bilateral DJD (degenerative joint disease), lumbar Osteoarthritis of right knee 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 Mixed hyperlipidemia Cerebrovascular disease BPH w urinary obs/LUTS History of primary bladder cancer Skin cancer Bladder cancer Enlarged prostate Numbness History of TIA (transient ischemic attack) Macular degeneration Surgical History H/O transurethral destruction of bladder lesion Hx of cystoscopy (12/23/19) Hx of left cataract extraction History of right cataract extraction (10/2019) Hx of inguinal hernia surgery Family History Father Cancer Diabetes mellitus Social History marital status: number of children: 3 household members: spouse Smoking Status: Current every day smoker alcohol intake: never caffeine: Yes eating out: 1-3 times/week Type(s) of exercise: walking Smoking Status: Current every day smoker alcohol intake frequency: 0-2 drinks per day Substance Use Type: does not use Exam Initial Vital Signs Initial Vital Signs: Vital Signs Pulse Rate 103 H 07/07/23 07:57 Pulse Oximetry 98 07/07/23 07:57 GENERAL: Alert pleasant 78-year-old male and in no acute distress. HEENT: Head atraumatic,EOMI, pupils reactive, face symmetric, moist mucous membranes CARDIOVASCULAR: Regular rate and rhythm without murmurs, rubs or gallops. RESPIRATORY: Breath sounds equal bilaterally, no wheezes rales or rhonchi. ABDOMEN: Soft, nontender. Normoactive bowel sounds all 4 quadrants. No guarding or rebound. EXTREMITIES: Normal range of motion, no clubbing or edema. Neurovascularly intact NEUROLOGICAL: Alert and oriented x4.Normal gait and speech. SKIN: Incision clean and dry no swelling no erythema drain in place sutured in serosanguineous fluid in Course Orders Ordered: ED Orders 07/07/23 08:10 CBC Auto Diff [Complete Blood Count AUTO DIFF] Stat CMP [Comprehensive Metabolic Panel] Stat Vital Signs Vital signs: Vital Signs - 8 hr 07/07/23 07:57 07/07/23 07:58 07/07/23 07:59 Temperature 98.3 F Pulse Rate 103 H 87 104 H Respiratory Rate 16 Blood Pressure 159/76 H Pulse Oximetry 98 98 98 Oxygen Delivery Method Room Air 07/07/23 07:59 07/07/23 08:00 07/07/23 08:00 Temperature Pulse Rate 98 H Respiratory Rate Blood Pressure 156/75 H 159/76 H Pulse Oximetry 99 Oxygen Delivery Method 07/07/23 08:30 07/07/23 08:30 07/07/23 09:00 Temperature Pulse Rate 91 H 82 Respiratory Rate Blood Pressure 154/72 H Pulse Oximetry 98 98 Oxygen Delivery Method 07/07/23 09:00 07/07/23 09:30 07/07/23 09:30 Temperature Pulse Rate 87 Respiratory Rate Blood Pressure 157/73 H 144/67 H Pulse Oximetry 99 Oxygen Delivery Method 07/07/23 09:51 Temperature 98.1 F Pulse Rate Respiratory Rate Blood Pressure Pulse Oximetry Oxygen Delivery Method MDM - Skin/Abscess/Foreign Bdy Lab Data 07/07/23 08:10 07/07/23 08:10 Labs: Lab Results 07/07/23 Range/Units 08:10 WBC 9.4 (4.5-11.0) X10^3/uL RBC 3.40 L (4.5-5.9) X10^6/uL Hgb 12.1 L (13.5-17.5) g/dL Hct 35.8 L (41-53) % MCV 105.2 H (80-100) fL MCH 35.6 H (26-34) PG MCHC 33.9 (30-36) % RDW 14.1 (11.6-14.8) % Plt Count 274 (150-400) X10^3/uL Neut % (Auto) 68.6 (50-75) % Lymph % (Auto) 18.5 L (25-40) % [place] % (Auto) 10.6 (3-14) % Eos % (Auto) 1.7 L (2-4) % Baso % (Auto) 0.6 (0-2) % Neut # (Auto) 6400 (7501-9909) /uL Lymph # (Auto) 1700 (3253-6432) /uL [place] # (Auto) 1000 H (0-900) /uL Eos # (Auto) 200 (0-450) /uL Baso # (Auto) 100 (0-100) /uL Sodium 135 L (137-145) mmol/L Potassium 4.6 (3.4-5.1) mmol/L Chloride 104 (98-107) mmol/L Carbon Dioxide 23 (22-32) mmol/L BUN 25 H (9-20) mg/dL Creatinine 0.90 (0.66-1.25) mg/dL Estimated GFR > 60 (>60) mL/min BUN/Creatinine Ratio 27.8 H (6-22) Glucose 296 H (80-110) mg/dL Calcium 9.3 (8.4-10.2) mg/dL Total Bilirubin 0.7 (0.2-1.3) mg/dL AST 32 (17-59) IU/L ALT 24 (<50) IU/L Alkaline Phosphatase 102 (38-126) U/L Total Protein 7.1 (6.3-8.2) g/dL Albumin 3.9 (3.5-5.0) g/dL Globulin 3.2 (1.7-4.1) g/dL Albumin/Globulin Ratio 1.2 (1.0-2.8) MDM Narrative Medical decision making narrative: Patient overall appears well drain appears to be in place there serosanguineous fluid in it. Incision site is clean and dry without any sign of infection. Blood work has been reviewed calcium is within normal limits along with other electrolytes. He has no airway concern. I spoke with Dr. Rae updated on patient's symptoms and test results a grease that everything is going along the expected course for postop. Patient is to follow-up with local ENT to have drain removed later this week Discharge Plan Departure Patient Disposition: Home Clinical Impression: Post-operative pain Instructions: DI for Postoperative Pain Activity Restrictions/Additional Instructions: *You have been diagnosed with postoperative care *What to do: At this time everything is going as planned. At the drainage from the drain should decreased. The drain is still working. You are to follow-up with local ENT I presumed Dr. Sotomayor to remove the drain this week. Your blood work and electrolytes are overall reassuring. I spoke with Dr. Rae *Continue to take medications as directed *Follow up with your primary care provider in 2-3 days or call [phone] *Return to ER if you should have redness fever draining or any new, worsening or concerning symptoms Prescriptions: No Action tamsulosin 0.4 mg capsule 0.4 mg PO ONCE PM Qty: 90 3RF atorvastatin 40 mg tablet 40 mg PO QPM Qty: 90 2RF valacyclovir 1 gram tablet 1,000 mg PO BID ipratropium bromide 21 mcg (0.03 %) spray,non-aerosol 2 spray intranasal DAILY prednisolone acetate 1 % drops,suspension 1 drp EYE-RIGHT DAILY Patient Comments: instill 1 drop by ophthalmic route everyday in the right eye cyclosporine [Restasis] 0.05 % dropperette 1 drp EYE-BOTH BID Patient Comments: INSTILL ONE DROP INTO BOTH EYES TWO TIMES DAILY (DME) OneTouch Ultra Test Strip See Rx Instructions .ROUTE .MEDSUPPLY Qty: 100 11RF Rx Instructions: Use to Check Blood Sugars 1x a day metformin 500 mg tablet 500 mg PO BID Qty: 180 3RF Rx Instructions: Increased dose. Centrum Silver 0.4-300-250 mg-mcg-mcg Tablet 1 tab PO QPM PreserVision AREDS 1 cap PO BID Referrals: Caleb Plata MD [Primary Care Provider] - Stand Alone Forms: Patient Portal/API
[2023-07-07 08:29] LABS: Add Manual Diff / Slide Review NO; Basophils Absolute Auto 100 /uL (0-100); Basophils Percent Auto 0.6 % (0-2); Eosinophils Absolute Auto 200 /uL (0-450); Eosinophils Percent Auto 1.7 % (2-4); Hematocrit 35.8 % (41-53); Hemoglobin 12.1 g/dL (13.5-17.5); Lymphocytes Absolute Auto 1700 /uL (1100-4500); Lymphocytes Percent Auto 18.5 % (25-40); Mean Corpuscular HGB Conc 33.9 % (30-36); Mean Corpuscular Hemoglobin 35.6 PG (26-34); Mean Corpuscular Volume 105.2 fL (80-100); Monocytes Absolute Auto 1000 /uL (0-900); Monocytes Percent Auto 10.6 % (3-14); Neutrophils Absolute Auto 6400 /uL (1500-7000); Neutrophils Percent Auto 68.6 % (50-75); Platelet Count 274 X10^3/uL (150-400); Red Cell Distribution Width 14.1 % (11.6-14.8); White Blood Cell Count 9.4 X10^3/uL (4.5-11.0)
[2023-07-07 08:34] LABS: Alanine Aminotransferase 24 IU/L (<50); Albumin 3.9 g/dL (3.5-5.0); Albumin Globulin Ratio 1.2 (1.0-2.8); Alkaline Phosphatase 102 U/L (38-126); Aspartate Aminotransferase 32 IU/L (17-59); BUN Creatinine Ratio 27.8 (6-22); Bilirubin Total 0.7 mg/dL (0.2-1.3); Blood Urea Nitrogen 25 mg/dL (9-20); Calcium 9.3 mg/dL (8.4-10.2); Carbon Dioxide 23 mmol/L (22-32); Chloride 104 mmol/L (98-107); Estimated Glomerular Filt Rate > 60 mL/min (>60); Globulin 3.2 g/dL (1.7-4.1); Glucose 296 mg/dL (80-110); HEMOLYSIS 35 (0-50); Potassium 4.6 mmol/L (3.4-5.1); Sodium 135 mmol/L (137-145); Total Protein 7.1 g/dL (6.3-8.2)
== END 2023-07-07 09:51 | disposition home or self-care (01) ==
PROVIDERS: Emergency Provider Emergency Medicine; Family Provider Internal Medicine; PCP Internal Medicine
DX: G89.18 Other acute postprocedural pain (principal)
CPT/HCPCS: 36415; 80053; 85025; 99282; 99283

== ENCOUNTER 2023-07-25 11:30 | Emergency (ER) | payer MEDICARE, OTHER, SELFPAY ==
[2023-07-25] VITALS (14 sets, daily range): BP systolic 128–163; BP diastolic 63–73; PULSE 61–99; RESP 12–24; TEMP 36.4; O2SAT 98–100; BMI 21.9
--- NOTE | 2023-07-25 11:33 | DI.RAD.S_ITS ---
PROCEDURE: XR CHEST 1V INDICATIONS: syncope TECHNIQUE: One view of the chest was acquired. COMPARISON: [facility], CR, XR CHEST 2V, 03/07/2023, 9:42. FINDINGS: Surgical changes and devices: None. Lungs and pleura: Lungs are clear. No pleural effusions or pneumothorax. The lung volumes are large and the diaphragms are flattened suggesting emphysema. Mediastinum: Mediastinal contours appear normal. Heart size is normal. Bones and chest wall: No suspicious bony lesions. Overlying soft tissues appear unremarkable. IMPRESSION: No acute cardiopulmonary abnormality is seen. Emphysematous change. Dictated by: Amanda Boone M.D. on 07/25/2023 at 12:14 Approved by: Amanda Boone M.D. on 07/25/2023 at 12:14
--- NOTE | 2023-07-25 11:33 | DI.CT.S_ITS ---
PROCEDURE: CT HEAD/BRAIN WO CON INDICATIONS: syncope/head trauma TECHNIQUE: Noncontrast 4.5 mm thick angled axial sections acquired from the foramen magnum to the vertex, with coronal and sagittal reformats. For radiation dose reduction, the following was used: automated exposure control, adjustment of mA and/or kV according to patient size. COMPARISON: [facility], CT, CT SOFT TISSUE NECK W CON, 04/16/2023, 10:41. [facility], CT, HEAD WITHOUT CONTRAST, 01/27/2017, 13:38. FINDINGS: Image quality: Excellent. CSF spaces: Basal cisterns are patent. No extra-axial fluid collections. The ventricles are symmetric in size and shape. Brain: No intracranial bleeds or masses. There is cerebral volume loss for age, with resultant ventricular and sulcal prominence. There are periventricular and deep white matter chronic small vessel ischemic changes. Focal valdes-white D differentiation and parenchymal hypodensities noted within the left occipital lobe (series 2/image 16). There is intracranial internal carotid artery atherosclerosis. Skull and face: Calvarium and visualized facial bones appear intact, without suspicious lesions. Sinuses: Visualized sinuses and mastoids are clear. IMPRESSION: 1. 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 2. No acute intracranial findings. 3. Findings likely associated with chronic microvascular ischemic changes. Dictated by: Amanda Boone M.D. on 07/25/2023 at 12:18 Approved by: Amanda oBone M.D. on 07/25/2023 at 12:21
[2023-07-25 11:43] LABS: Add Manual Diff / Slide Review NO; Basophils Absolute Auto 100 /uL (0-100); Basophils Percent Auto 0.8 % (0-2); Eosinophils Absolute Auto 100 /uL (0-450); Eosinophils Percent Auto 1.3 % (2-4); Hematocrit 35.6 % (41-53); Hemoglobin 12.2 g/dL (13.5-17.5); Lymphocytes Absolute Auto 3000 /uL (1100-4500); Lymphocytes Percent Auto 34.6 % (25-40); Mean Corpuscular HGB Conc 34.3 % (30-36); Mean Corpuscular Volume 104.8 fL (80-100); Monocytes Absolute Auto 800 /uL (0-900); Monocytes Percent Auto 9.3 % (3-14); Neutrophils Absolute Auto 4700 /uL (1500-7000); Platelet Count 304 X10^3/uL (150-400); Red Cell Distribution Width 13.6 % (11.6-14.8); White Blood Cell Count 8.7 X10^3/uL (4.5-11.0)
--- NOTE | 2023-07-25 11:46 | ED_ITS ---
HPI - Syncope General Chief Complaint: Syncope Stated Complaint: syncope Time Seen by Provider: 07/25/23 11:31 Source: patient and EMS Mode of arrival: EMS Limitations: no limitations History of Present Illness HPI narrative: Patient with history of TIA, diabetes presents from home by EMS for syncopal episode that occurred just prior to arrival. Patient states that he had gotten up to go outside and smoke a cigarette, when he got up to go back inside as he walked up the steps he felt very lightheaded and had to sit down. When he sat down he passed out. Afterwards he got up with his 's assistance. He had a large bowel movement and felt very sweaty, and told his to call 911. Vitals significant for BP 80s/60s on EMS arrival to patient house. Accucheck 215. On arrival patient awake, alert, no acute distress. States this has never happened before. Related Data Home Medications Medication Instructions Recorded Confirmed PreserVision AREDS 1 cap PO BID 05/15/18 05/16/23 bwtlwvsa-bfr-uuviv acid 0.4 1 tab PO QPM 05/15/18 05/16/23 mg-lycopene 300 mcg-lutein 250 mcg tablet (Centrum Silver) ipratropium bromide 21 mcg (0.03 2 spray intranasal DAILY 12/09/21 05/16/23 %) nasal spray prednisolone acetate 1 % eye 1 drp EYE-RIGHT DAILY 09/06/22 05/16/23 drops,suspension cyclosporine 0.05 % eye drops in a 1 drp EYE-BOTH BID 03/07/23 05/16/23 dropperette (Restasis) valacyclovir 1 gram tablet 1,000 mg PO BID 05/16/23 05/16/23 Previous Rx's Medication Instructions Recorded blood sugar diagnostic (OneTouch #100 ea 03/07/23 Ultra Test strips) metformin 500 mg tablet 500 mg PO BID #180 tabs 03/07/23 tamsulosin 0.4 mg capsule 0.4 mg PO ONCE PM #90 caps 05/04/23 atorvastatin 40 mg tablet 40 mg PO QPM #90 tabs 05/10/23 Allergies Allergy/AdvReac Type Severity Reaction Status Date / Time No Known Drug Allergies Allergy Verified 07/25/23 11:42 Review of Systems Review of Systems Narrative: Negative except as noted above Patient History Medical History Cyst of right parotid gland Tobacco use disorder Type 2 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, bilateral DJD (degenerative joint disease), lumbar Osteoarthritis of right knee 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 Mixed hyperlipidemia Cerebrovascular disease BPH w urinary obs/LUTS History of primary bladder cancer Skin cancer Bladder cancer Enlarged prostate Numbness History of TIA (transient ischemic attack) Macular degeneration Surgical History H/O transurethral destruction of bladder lesion Hx of cystoscopy (12/23/19) Hx of left cataract extraction History of right cataract extraction (10/2019) Hx of inguinal hernia surgery Family History Father Cancer Diabetes mellitus Social History marital status: number of children: 3 household members: spouse Smoking Status: Current every day smoker alcohol intake: never caffeine: Yes eating out: 1-3 times/week Type(s) of exercise: walking Smoking Status: Current every day smoker alcohol intake frequency: 0-2 drinks per day Substance Use Type: does not use Exam Initial Vital Signs Initial Vital Signs: Vital Signs Temperature 97.6 F 07/25/23 11:34 Pulse Rate 82 07/25/23 11:34 Respiratory Rate 16 07/25/23 11:34 Blood Pressure 129/63 07/25/23 11:34 Pulse Oximetry 98 07/25/23 11:34 Oxygen Delivery Method Room Air 07/25/23 11:34 Const: Awake, alert, no acute distress, nontoxic appearing Eyes: PERRL, EOMI, conjunctiva normal ENT: Atraumatic, dentition normal, mucous membranes moist Cardiac: regular rate, regular rhythm RESP: unlabored, clear bilaterally, no wheezing GI: Atraumatic, soft, nontender, nondistended, no rebound, no guarding MSK: Atraumatic, full range of motion, pulses equal Skin: Warm, Dry, intact, no rashes Neuro: AO x3, CN II-XII grossly intact, moves all extremities Psych: affect normal, mood normal, not suicidal, not homicidal Course Orders Ordered: ED Orders 07/25/23 11:33 CT head/brain wo con Stat Chest [XR chest 1V] Stat EKG-12 Lead Stat 07/25/23 11:37 CBC Auto Diff [Complete Blood Count AUTO DIFF] Stat CMP [Comprehensive Metabolic Panel] Stat Troponin & CK Cardiac Panel Stat Vital Signs Vital signs: Vital Signs - 8 hr 07/25/23 11:34 07/25/23 12:09 07/25/23 12:11 Temperature 97.6 F Pulse Rate 82 79 61 Pulse Rate [Orthostatic Lying] Pulse Rate [Orthostatic Sitting] Pulse Rate [Orthostatic Standing] Respiratory Rate 16 13 12 Blood Pressure 129/63 Blood Pressure [Orthostatic Lying] Blood Pressure [Orthostatic Sitting] Blood Pressure [Orthostatic Standing] Pulse Oximetry 98 99 98 Oxygen Delivery Method Room Air 07/25/23 12:11 07/25/23 12:15 07/25/23 12:15 Temperature Pulse Rate 66 Pulse Rate [Orthostatic Lying] Pulse Rate [Orthostatic Sitting] Pulse Rate [Orthostatic Standing] Respiratory Rate 12 Blood Pressure 146/64 H 163/66 H Blood Pressure [Orthostatic Lying] Blood Pressure [Orthostatic Sitting] Blood Pressure [Orthostatic Standing] Pulse Oximetry 99 Oxygen Delivery Method 07/25/23 12:24 07/25/23 12:24 07/25/23 12:26 Temperature Pulse Rate 84 87 Pulse Rate [Orthostatic Lying] Pulse Rate [Orthostatic Sitting] Pulse Rate [Orthostatic Standing] Respiratory Rate 14 14 Blood Pressure 138/63 Blood Pressure [Orthostatic Lying] Blood Pressure [Orthostatic Sitting] Blood Pressure [Orthostatic Standing] Pulse Oximetry 100 100 Oxygen Delivery Method 07/25/23 12:26 07/25/23 12:27 07/25/23 12:27 Temperature Pulse Rate 91 H Pulse Rate [Orthostatic Lying] Pulse Rate [Orthostatic Sitting] Pulse Rate [Orthostatic Standing] Respiratory Rate 21 Blood Pressure 147/69 H 148/68 H Blood Pressure [Orthostatic Lying] Blood Pressure [Orthostatic Sitting] Blood Pressure [Orthostatic Standing] Pulse Oximetry Oxygen Delivery Method 07/25/23 12:30 07/25/23 12:30 07/25/23 12:31 Temperature Pulse Rate 89 Pulse Rate [Orthostatic Lying] 82 Pulse Rate [Orthostatic Sitting] 69 Pulse Rate [Orthostatic Standing] 88 Respiratory Rate 24 Blood Pressure 160/73 H Blood Pressure [Orthostatic Lying] 138/63 Blood Pressure [Orthostatic Sitting] 147/69 H Blood Pressure [Orthostatic Standing] 148/68 H Pulse Oximetry 99 Oxygen Delivery Method MDM - Syncope Differential Diagnosis Differential diagnosis: Likely syncope due to orthostatic hypotension, vasovagal syncope and dehydration Lab Data 07/25/23 11:37 07/25/23 11:37 Labs: Lab Results 07/25/23 Range/Units 11:37 WBC 8.7 (4.5-11.0) X10^3/uL RBC 3.40 L (4.5-5.9) X10^6/uL Hgb 12.2 L (13.5-17.5) g/dL Hct 35.6 L (41-53) % MCV 104.8 H (80-100) fL MCH 36.0 H (26-34) PG MCHC 34.3 (30-36) % RDW 13.6 (11.6-14.8) % Plt Count 304 (150-400) X10^3/uL Neut % (Auto) 54.0 (50-75) % Lymph % (Auto) 34.6 (25-40) % [place] % (Auto) 9.3 (3-14) % Eos % (Auto) 1.3 L (2-4) % Baso % (Auto) 0.8 (0-2) % Neut # (Auto) 4700 (7963-9376) /uL Lymph # (Auto) 3000 (5245-2287) /uL [place] # (Auto) 800 (0-900) /uL Eos # (Auto) 100 (0-450) /uL Baso # (Auto) 100 (0-100) /uL Sodium 136 L (137-145) mmol/L Potassium 4.0 (3.4-5.1) mmol/L Chloride 103 (98-107) mmol/L Carbon Dioxide 25 (22-32) mmol/L BUN 29 H (9-20) mg/dL Creatinine 1.10 (0.66-1.25) mg/dL Estimated GFR > 60 (>60) mL/min BUN/Creatinine Ratio 26.4 H (6-22) Glucose 210 H (80-110) mg/dL Calcium 9.8 (8.4-10.2) mg/dL Total Bilirubin 0.6 (0.2-1.3) mg/dL AST 28 (17-59) IU/L ALT 23 (<50) IU/L Alkaline Phosphatase 103 (38-126) U/L Total Creatine Kinase 55 (55-170) U/L Troponin I < 0.012 (0.01-0.034) ng/mL Total Protein 7.6 (6.3-8.2) g/dL Albumin 4.2 (3.5-5.0) g/dL Globulin 3.4 (1.7-4.1) g/dL Albumin/Globulin Ratio 1.2 (1.0-2.8) ECG Data Interpretation: RBBB, normal sinus rhythm, no STEMI, unchanged from 04/2023 prior Treatment and dispostion Social Determinants of Health that impact treatment or disposition: tobacco abuse MDM Narrative Medical decision making narrative: Syncopal episode at home after getting up from smoking a cigarette outside. Patient is returned back to baseline, neurologically intact, vital signs unremarkable. EKG shows right bundle-branch block that is unchanged from recent previous EKG. Laboratory work and imaging is reviewed, no acute findings identified. Per [facility] [place] syncope rule patient is low risk for adverse event. Patient counseled of lab and imaging findings. Recommended tobacco cessation and follow up closely with PCP. ED return precautions discussed at bedside. Patient expressed understanding of the plan and is in agreement at this time. All questions answered at the time of discharge. Discharge Plan Departure Patient Disposition: Home Clinical Impression: Tobacco use disorder Syncope Qualifiers: Syncope type: unspecified Qualified Code(s): R55 - Syncope and collapse Instructions: DI for Syncope in Adults (Fainting) Activity Restrictions/Additional Instructions: YOU WERE SEEN TODAY FOR A SYNCOPAL EPISODE. YOUR LABORATORY WORK AND YOUR IMAGING TODAY IS NORMAL. I REVIEWED YOUR EKG AND IT IS UNCHANGED FROM YOUR MOST RECENT EKG IN OF THIS YEAR. I RECOMMEND THAT YOU FOLLOW UP WITH YOUR PRIMARY CARE PHYSICIAN. Prescriptions: No Action tamsulosin 0.4 mg capsule 0.4 mg PO ONCE PM Qty: 90 3RF atorvastatin 40 mg tablet 40 mg PO QPM Qty: 90 2RF valacyclovir 1 gram tablet 1,000 mg PO BID ipratropium bromide 21 mcg (0.03 %) spray,non-aerosol 2 spray intranasal DAILY prednisolone acetate 1 % drops,suspension 1 drp EYE-RIGHT DAILY Patient Comments: instill 1 drop by ophthalmic route everyday in the right eye cyclosporine [Restasis] 0.05 % dropperette 1 drp EYE-BOTH BID Patient Comments: INSTILL ONE DROP INTO BOTH EYES TWO TIMES DAILY (DME) OneTouch Ultra Test Strip See Rx Instructions .ROUTE .MEDSUPPLY Qty: 100 11RF Rx Instructions: Use to Check Blood Sugars 1x a day metformin 500 mg tablet 500 mg PO BID Qty: 180 3RF Rx Instructions: Increased dose. Centrum Silver 0.4-300-250 mg-mcg-mcg Tablet 1 tab PO QPM PreserVision AREDS 1 cap PO BID Referrals: Caleb Plata MD [Primary Care Provider] - Stand Alone Forms: Patient Portal/API
[2023-07-25 11:52] LABS: Alanine Aminotransferase 23 IU/L (<50); Albumin 4.2 g/dL (3.5-5.0); Albumin Globulin Ratio 1.2 (1.0-2.8); Alkaline Phosphatase 103 U/L (38-126); Aspartate Aminotransferase 28 IU/L (17-59); BUN Creatinine Ratio 26.4 (6-22); Bilirubin Total 0.6 mg/dL (0.2-1.3); Blood Urea Nitrogen 29 mg/dL (9-20); Calcium 9.8 mg/dL (8.4-10.2); Carbon Dioxide 25 mmol/L (22-32); Chloride 103 mmol/L (98-107); Creatine Kinase 55 U/L (55-170); Estimated Glomerular Filt Rate > 60 mL/min (>60); Globulin 3.4 g/dL (1.7-4.1); Glucose 210 mg/dL (80-110); HEMOLYSIS < 15 (0-50); Sodium 136 mmol/L (137-145); Total Protein 7.6 g/dL (6.3-8.2)
[2023-07-25 12:03] LABS: Troponin I < 0.012 ng/mL (0.01-0.034)
== END 2023-07-25 14:07 | disposition home or self-care (01) ==
PROVIDERS: Emergency Provider Emergency Medicine; Family Provider Internal Medicine; PCP Internal Medicine
DX: F17.200 Nicotine dependence, unspecified, uncomplicated (principal); R55 Syncope and collapse; I45.10 Unspecified right bundle-branch block
CPT/HCPCS: 70450; 71045; 80053; 82550; 84484; 85025; 93005; 99281; 99284

== ENCOUNTER → 2023-08-02 15:09 | Outpatient (CLI) | payer MEDICARE, OTHER, SELFPAY | PROVIDERS: Family Provider Internal Medicine; PCP Internal Medicine; Referring Provider Internal Medicine; Visit Provider Internal Medicine | DX: R55 Syncope and collapse (principal) | CPT/HCPCS: 93242 ==

== ENCOUNTER → 2023-08-21 11:23 | Outpatient (CLI) | payer MEDICARE, OTHER, SELFPAY ==
[2023-08-21 12:31] LABS: BUN Creatinine Ratio 25.8 (6-22); Blood Urea Nitrogen 24 mg/dL (9-20); Calcium 9.9 mg/dL (8.4-10.2); Carbon Dioxide 29 mmol/L (22-32); Chloride 102 mmol/L (98-107); Estimated Glomerular Filt Rate > 60 mL/min (>60); Glucose 215 mg/dL (80-110); HEMOLYSIS < 15 (0-50); Potassium 5.4 mmol/L (3.4-5.1); Sodium 136 mmol/L (137-145)
[2023-08-21 12:44] LABS: Hemoglobin A1C% w Est Avg Glu 7.8 % (4.0-6.0)
== END ==
PROVIDERS: Family Provider Internal Medicine; PCP Internal Medicine; Referring Provider Internal Medicine; Visit Provider Internal Medicine
DX: E11.3213 Type 2 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, bilateral (principal); I67.9 Cerebrovascular disease, unspecified
CPT/HCPCS: 36415; 80048; 83036

== ENCOUNTER → 2024-01-10 12:39 | Outpatient (CLI) | payer MEDICARE, OTHER, SELFPAY ==
--- NOTE | 2024-01-10 12:41 | DI.CT.S_ITS ---
PROCEDURE: CT LUNG LOW DOSE SCREENING INDICATIONS: Former Smoker TECHNIQUE: Noncontrast 2.0-2.5 mm thick sections acquired from the pulmonary apices to the posterior costophrenic angles. 7 mm thick axial MIP, and 5 mm coronal and sagittal reformats were then acquired. For radiation dose reduction, the following was used: automated exposure control, adjustment of mA and/or kV according to patient size. COMPARISON: None. FINDINGS: Image quality: Diagnostic. Lower Neck: No enlarged lymph nodes. Thyroid: No thyroid nodules which require sonographic follow up, per consensus guidelines. Axillae: No enlarged lymph nodes. Chest Wall: Unremarkable. Bones: Unremarkable. Lungs and Pleura: No pneumothorax or pleural effusions. No consolidation. Mild biapical pleural parenchymal thickening/scarring. Mild paraseptal and centrilobular emphysema. Scattered micronodules, for example 2-3 mm left lower lobe nodule (3/246, MIP image 126) and right upper lobe nodule (3/59, MIP image 34). Heart: Heart size is normal. No pericardial effusion. Mild coronary artery calcifications. Thoracic Vessels: The aorta and pulmonary arteries demonstrate normal size. Aortic arch calcifications. Mediastinum and [place]: No enlarged lymph nodes. Esophagus: No wall thickening. No hiatal hernia. Upper Abdomen: Visualized upper abdomen solid organs and bowel loops appear normal. IMPRESSION: Scattered pulmonary micronodules. LUNG-RADS 2; continued annual screening, if eligible. Clinically Significant Non-pulmonary Findings: None Approved by: Maryuri Fitzgerald M.D.,Ph.D. on 01/10/2024 at 22:18
== END ==
PROVIDERS: Family Provider Internal Medicine; PCP Student in an Organized Health Care Education/Training Program; Referring Provider Student in an Organized Health Care Education/Training Program; Visit Provider Student in an Organized Health Care Education/Training Program
DX: Z87.891 Personal history of nicotine dependence (principal); Z12.2 Encounter for screening for malignant neoplasm of respiratory organs
CPT/HCPCS: 71271

== ENCOUNTER → 2024-05-12 08:46 | Outpatient (CLI) | payer MEDICARE, OTHER, SELFPAY ==
--- NOTE | 2024-05-12 08:48 | DI.RAD.S_ITS ---
PROCEDURE: XR LUMBAR SPINE 2-3V INDICATIONS: lumbar back pain with Right Radicular pain TECHNIQUE: 3 views of the lumbar spine were acquired. COMPARISON: [facility], , XR LUMBAR SPINE 2-3V, 05/15/2018, 16:30. FINDINGS: Lumbar spine curvature and alignment: There is 3 millimeters of L4 anterior subluxation due to degenerate facet disease. The remaining lumbar spine is anatomically aligned Bones: There are no osseous abnormalities. Disc spaces: Mild L4-5 and moderate L5-S1 degenerative disc and facet disease noted. There is mild SI degeneration with periarticular sclerosis inferiorly Intervertebral foramen: Grossly normal in width. Soft tissues: No soft tissue swelling, calcification or mass. IMPRESSION: Degeneration-slight progressed since 2018 Dictated by: Luis Daniel Ramirez M.D. on 05/13/2024 at 7:53 Approved by: Luis Daniel Ramirez M.D. on 05/13/2024 at 7:55
== END ==
PROVIDERS: Family Provider Internal Medicine; PCP Student in an Organized Health Care Education/Training Program; Referring Provider Student in an Organized Health Care Education/Training Program; Visit Provider Student in an Organized Health Care Education/Training Program
DX: M51.16 Intervertebral disc disorders with radiculopathy, lumbar region (principal); M51.17 Intervertebral disc disorders with radiculopathy, lumbosacral region; M47.26 Other spondylosis with radiculopathy, lumbar region; M47.27 Other spondylosis with radiculopathy, lumbosacral region
CPT/HCPCS: 72100

== ENCOUNTER → 2024-05-23 08:54 | Outpatient (CLI) | payer MEDICARE, OTHER, SELFPAY ==
--- NOTE | 2024-05-23 08:55 | DI.MRI.S_ITS ---
PROCEDURE: MR LUMBAR SPINE WO CON INDICATIONS: LBP with radiculopathy TECHNIQUE: Noncontrast sagittal T1 spin echo and T2 fast echo, sagittal STIR, and T2 fast spin echo through the lumbar spine. In cases with scoliosis, additional coronal T2 fast spin echo may be performed. COMPARISON: None. FINDINGS: Image quality: Excellent. Alignment and Curvature: Mild straightening of the normal lumbar lordosis. Mild anterolisthesis of L4 on L5. Bone Marrow: Mild degenerative endplate changes, most pronounced at L5-S1. Marrow is of normal overall signal. No acute vertebral body compression fractures. Spinal Cord: Conus medullaris terminates at the a L1-L2 level. Visualized cord demonstrates normal signal and size. Paraspinous Soft Tissues: No paravertebral masses. T12-L1: Normal appearance. L1-L2: Disc desiccation and mild diffuse disc bulge. Facet arthropathy. No central canal or neural foraminal stenosis. L2-L3: Disc desiccation and mild height loss. Mild diffuse disc bulge. Facet arthropathy and thickening of ligamentum flavum. No significant central canal stenosis. No neural foraminal stenosis. L3-L4: Disc desiccation and mild diffuse disc bulge. Facet arthropathy and thickening of ligamentum flavum. Mild narrowing of the lateral recesses with displacement of the descending L4 nerve roots. No central canal or neural foraminal stenosis. L4-L5: Disc desiccation and mild height loss. Mild diffuse disc bulge with small superimposed central disc protrusion. Facet arthropathy and thickening of ligamentum flavum. No central canal stenosis. Narrowing of the lateral recesses with abutment of the descending L5 nerve roots. Mild left and no right neural foraminal stenosis. L5-S1: Disc desiccation and diffuse disc bulge. Superimposed central disc extrusion extending inferiorly with associated annular tear. Facet arthropathy. No central canal stenosis. Moderate right and mild left neural foraminal stenosis. IMPRESSION: 1. Multilevel degenerative changes of the lumbar spine as described above. 2. No significant central canal stenosis. Mild lateral recess narrowing at L3-L4 and L4-L5 with abutment of the descending nerve roots. 3. Moderate right neural foraminal stenosis L5-S1. Dictated by: He Headley M.D. on 05/23/2024 at 14:59 Approved by: He Headley M.D. on 05/23/2024 at 15:02
== END ==
PROVIDERS: Family Provider Internal Medicine; PCP Student in an Organized Health Care Education/Training Program; Referring Provider Student in an Organized Health Care Education/Training Program; Visit Provider Student in an Organized Health Care Education/Training Program
DX: M47.26 Other spondylosis with radiculopathy, lumbar region (principal); M47.27 Other spondylosis with radiculopathy, lumbosacral region; M48.061 Spinal stenosis, lumbar region without neurogenic claudication; M48.07 Spinal stenosis, lumbosacral region
CPT/HCPCS: 72148

== ENCOUNTER 2024-07-01 14:49 | Outpatient (CLI) | payer MEDICARE, OTHER, SELFPAY ==
[2024-07-01] VITALS (13 sets, daily range): BP systolic 117–152; BP diastolic 58–80; PULSE 16–97; RESP 12–18; TEMP 36.7; O2SAT 95–100
--- NOTE | 2024-07-01 14:58 | DI.RAD.S_ITS ---
PROCEDURE: PAIN L/S TRANSFORAMINAL INJECT INDICATIONS: RIGHT L4/5 L5/S1 TF DANNY COMPARISON: None. FINDINGS: Fluoroscopic spot filming was performed to verify placement of spinal needles at the L4-5 and L5-S1 level(s), as labeled on the films. Appropriate location(s) of the needle tip(s) was confirmed by injection of iodinated contrast. IMPRESSION: Fluoro guidance was provided intraoperatively for right L4-5 and L5-S1 TF DANNY performed by ordering physician. Dictated by: Jigar Dover M.D. on 07/03/2024 at 16:02 Approved by: Jigar Dover M.D. on 07/03/2024 at 16:02
[2024-07-01] MEDS: MIDAZOLAM 2 MG/2 ML VIAL 1 MG IV ×2 (15:50→15:56)
[2024-07-01] MEDS: DEXAMETHASONE 10 MG/ML VIAL 20 MG INJ (15:56)
[2024-07-01] MEDS: BUPIVACAINE 0.25% (PF) VIAL 2 ML INJ (15:56)
[2024-07-01] MEDS: BETAMETHASONE 30 MG/5 ML MDV 12 MG INJ (15:57)
[2024-07-01] MEDS: iopamidoL 15 ML VIAL 3 ML INJ (15:57)
--- NOTE | 2024-07-01 16:14 | P.PCN_ITS ---
Date/Time/Diagnoses Date of procedure: 07/01/24 Time of procedure: 16:14 Pre-procedure diagnosis: 1. FORAMINAL STENOSIS WITH LE SYMPTOMS Post-procedure diagnosis: same Procedure Notes Procedure: 1. FLUOROSCOPICALLY GUIDED CONTRAST CONTROLLED TRANSFORAMINAL EPIDURAL STEROID INJECTION - RIGHT L4/5 TFESI Indications: Herman is referred by Dr. Painting for treatment of Foraminal Stenosis with Right LE Symptoms Physician: Juan Ramon Marrufo Total Fluoroscopy time (seconds): 8 Total sedation minutes: 14 Complications: none Procedure in detail & Post-procedure care: FINDINGS Foraminal Nerve Root Compression secondary to disc disease and facet hypertrophy DESCRIPTION OF PROCEDURE Following review of allergy and review of potential side effects and complications, including, but not necessarily limited to, infection, allergic reaction, local tissue breakdown, stroke, temporary or permanent nerve injury, paralysis, and possible , the patient indicated that the patient understood and agreed to proceed. An informed consent document was signed by the patient, witnessed by a nurse, and placed in the patient's chart. Additionally, other treatment options including medications, modalities, and physical therapy were reviewed with the patient. After review of previous anaesthesic history and IV conscious sedation the patient was deemed safe to proceed with today?s procedure with IV conscious sedation as ASA class II designation. Safety time-out was performed to confirm patient ID, procedure to be performed and site of procedure. IV sedation was accomplished with a combination of 2mg of Versed was administered by the RN after DO order, titrated to patient comfort during the course of the procedure while the patient remained responsive to all verbal commands In the prone position following sterile prep and drape of the lumbar region, the right L4/5 posterior neuroforamen was identified fluoroscopically. The skin was anesthetized via a 25-gauge 1.5-inch needle with 1% lidocaine solution. At this point, a 25-gauge 3.5-inch spinal needle was atraumatically introduced and advanced under fluoroscopic guidance through the posterior right L4/5 neuroforamen to approximately the anterior aspect of the canal. Depth was confirmed on lateral view. Following negative aspiration, injection of approximately 1.5cc of Isovue 200 under live fluoroscopy in the AP view confirmed excellent flow along the nerve root, into the epidural space without vascular or intrathecal uptake observed Radiological data, including multiple fluoroscopic views of the lumbosacral s pine, reveal a spinal needle at the right L4/5 posterior neuroforamen. Subsequent views show flow of contrast material flowing superiorly and inferiorly along the nerve root confirming epidural flow. Subsequently, a test dose of 1.5 cc of 1% lidocaine solution was administered and patient was observed for two minutes for signs or symptoms of complications, including abdominal pain, shortness of breath, bilateral upper or lower extremity weakness, nausea and vomiting, prior to steroid injection. At this point, a total of 2cc or 10mg of dexamethasone and 6mg of betamethasone was injected without incident. The procedure tolerated the procedure well without signs or symptoms of complications prior to transfer to the recovery area continued monitoring without incident. The patient was then transferred to the recovery area where they were observed for an appropriate time after the injection. The patient reported a VAS score of 7 prior to the procedure and a post- procedure VAS of 0. POST OP INSTRUCTIONS The patient was provided a Pain Log to continue to record their response to the target-specific procedure prior to follow-up visit with their referring physician. Additionally, specific post-injection care instructions and a contact number to our office were provided if concerns arise regarding possible complications associated with the procedure are suspected.
--- NOTE | 2024-07-01 16:16 | P.PCN_ITS ---
Date/Time/Diagnoses Date of procedure: 07/01/24 Time of procedure: 16:16 Pre-procedure diagnosis: FORAMINAL STENOSIS WITH LE SYMPTOMS Post-procedure diagnosis: same Procedure Notes Procedure: 1. FLUOROSCOPICALLY GUIDED CONTRAST CONTROLLED TRANSFORAMINAL EPIDURAL STEROID INJECTION - RIGHT L5/S1 TFESI Indications: Herman is referred by Dr. Painting for treatment of Foraminal Stenosis with Right LE Symptoms Physician: Juan Ramon Marrufo Total Fluoroscopy time (seconds): 8 Total sedation minutes: 14 Complications: none Procedure in detail & Post-procedure care: FINDINGS Foraminal Nerve Root Compression secondary to disc disease and facet hypertrophy DESCRIPTION OF PROCEDURE Following review of allergy and review of potential side effects and complications, including, but not necessarily limited to, infection, allergic reaction, local tissue breakdown, stroke, temporary or permanent nerve injury, paralysis, and possible , the patient indicated that the patient understood and agreed to proceed. An informed consent document was signed by the patient, witnessed by a nurse, and placed in the patient's chart. Additionally, other treatment options including medications, modalities, and physical therapy were reviewed with the patient. After review of previous anaesthesic history and IV conscious sedation the patient was deemed safe to proceed with today?s procedure with IV conscious sedation as ASA class II designation. Safety time-out was performed to confirm patient ID, procedure to be performed and site of procedure. IV sedation was accomplished with a combination of 2mg of Versed was administered by the RN after DO order, titrated to patient comfort during the course of the procedure while the patient remained responsive to all verbal commands In the prone position following sterile prep and drape of the lumbar region, the right L5/S1 posterior neuroforamen was identified fluoroscopically. The skin was anesthetized via a 25-gauge 1.5-inch needle with 1% lidocaine solution. At this point, a 25-gauge 3.5-inch spinal needle was atraumatically introduced and advanced under fluoroscopic guidance through the posterior right L5/S1 neuroforamen to approximately the anterior aspect of the canal. Depth was confirmed on lateral view. Following negative aspiration, injection of approximately 1.5cc of Isovue 200 under live fluoroscopy in the AP view confirmed excellent flow along the nerve root, into the epidural space without vascular or intrathecal uptake observed Radiological data, including multiple fluoroscopic views of the lumbosacral spine, reveal a spinal needle at the right L5/S1 posterior neuroforamen. Subsequent views show flow of contrast material flowing superiorly and inferiorly along the nerve root confirming epidural flow. Subsequently, a test dose of 1.5 cc of 1% lidocaine solution was administered and patient was observed for two minutes for signs or symptoms of complications, including abdominal pain, shortness of breath, bilateral upper or lower ext remity weakness, nausea and vomiting, prior to steroid injection. At this point, a total of 2cc or 10mg of dexamethasone and 6mg of betamethasone was injected without incident. The procedure tolerated the procedure well without signs or symptoms of complications prior to transfer to the recovery area continued monitoring without incident. The patient was then transferred to the recovery area where they were observed for an appropriate time after the injection. The patient reported a VAS score of 7 prior to the procedure and a post- procedure VAS of 0. POST OP INSTRUCTIONS The patient was provided a Pain Log to continue to record their response to the target-specific procedure prior to follow-up visit with their referring physician. Additionally, specific post-injection care instructions and a contact number to our office were provided if concerns arise regarding possible complications associated with the procedure are suspected.
== END 2024-07-01 16:38 | disposition home or self-care (01) ==
LOC: RAD 14:51
PROVIDERS: Family Provider Internal Medicine; PCP Student in an Organized Health Care Education/Training Program; Referring Provider Physical Medicine & Rehabilitation; Visit Provider Physical Medicine & Rehabilitation
DX: M48.061 Spinal stenosis, lumbar region without neurogenic claudication (principal); M47.26 Other spondylosis with radiculopathy, lumbar region; M51.16 Intervertebral disc disorders with radiculopathy, lumbar region; M48.07 Spinal stenosis, lumbosacral region; M51.17 Intervertebral disc disorders with radiculopathy, lumbosacral region; M47.27 Other spondylosis with radiculopathy, lumbosacral region
CPT/HCPCS: 64483; 64484; 99152; J0702; J1100; J2250; J3490

== ENCOUNTER 2024-08-18 13:53 | Emergency (ER) | payer MEDICARE, OTHER, SELFPAY ==
[2024-08-18 14:03] VITALS: BP 171/80; PULSE 106; RESP 18; TEMP 37; O2SAT 99; BMI 21.5
--- NOTE | 2024-08-18 14:07 | EKG_ITS ---
[facility] [address] [place] [address] Test Date: 2024-08-18 Pat Name: Herman Kc Department: [facility] Room: Gender: Male Health Information Specialist: JOSEPH : 1945 Requested By: Order Number: [id number] Reading MD: Tapan Costello Measurements Intervals [place] Rate: 92 P: 70 NH: 216 QRS: -67 QRSD: 138 T: 59 QT: 362 QTc: 447 Interpretive Statements Sinus rhythm with 1st degree AV block Right bundle branch block Left anterior fascicular block Bifascicular block Minimal voltage criteria for LVH, may be normal variant ( R in aVL ) Septal infarct , age undetermined Electronically Signed On 08-18-2024 18:45:02 PST by Tapan Costello
[2024-08-18 14:40] LABS: Add Manual Diff / Slide Review NO; Basophils Absolute Auto 0 /uL (0-100); Basophils Percent Auto 0.5 % (0-2); Eosinophils Absolute Auto 0 /uL (0-450); Eosinophils Percent Auto 0.3 % (2-4); Hematocrit 38.5 % (41-53); Lymphocytes Absolute Auto 1200 /uL (1100-4500); Lymphocytes Percent Auto 12.7 % (25-40); Mean Corpuscular HGB Conc 33.9 % (30-36); Mean Corpuscular Hemoglobin 36.5 PG (26-34); Mean Corpuscular Volume 107.7 fL (80-100); Monocytes Absolute Auto 600 /uL (0-900); Monocytes Percent Auto 6.3 % (3-14); Neutrophils Absolute Auto 7500 /uL (1500-7000); Neutrophils Percent Auto 80.2 % (50-75); Platelet Count 280 X10^3/uL (150-400); Red Blood Cell Count 3.57 X10^6/uL (4.5-5.9); Red Cell Distribution Width 12.9 % (11.6-14.8); White Blood Cell Count 9.4 X10^3/uL (4.5-11.0)
[2024-08-18 14:44] LABS: Alanine Aminotransferase 26 IU/L (<50); Albumin 4.2 g/dL (3.5-5.0); Albumin Globulin Ratio 1.6 (1.0-2.8); Alkaline Phosphatase 90 U/L (38-126); Aspartate Aminotransferase 34 IU/L (17-59); Bilirubin Total 0.5 mg/dL (0.2-1.3); Blood Urea Nitrogen 22 mg/dL (9-20); Calcium 9.8 mg/dL (8.4-10.2); Carbon Dioxide 24 mmol/L (22-32); Chloride 102 mmol/L (98-107); Estimated Glomerular Filt Rate > 60 mL/min (>60); Globulin 2.6 g/dL (1.7-4.1); Glucose 220 mg/dL (80-110); HEMOLYSIS 17 (0-50); Lipase 88 U/L (23-300); Potassium 4.5 mmol/L (3.4-5.1); Sodium 134 mmol/L (137-145); Total Protein 6.8 g/dL (6.3-8.2)
[2024-08-18 14:54] LABS: Influenza A - CEPHEID Flu A NEGATIVE (NEGATIVE); Influenza B - CEPHEID Flu B NEGATIVE (NEGATIVE); Respiratory Syncytial Virus Negative (Negative)
[2024-08-18 14:55] LABS: Troponin I < 0.012 ng/mL (0.01-0.034)
[2024-08-18 15:01] LABS: COVID-19 CEPHEID 4-PLEX PCR Negative (Negative)
--- NOTE | 2024-08-18 18:50 | ED_ITS ---
HPI - Abdominal Pain General Chief Complaint: Abdominal Pain Stated Complaint: heart burn, headache, vomiting, diarrhea Time Seen by Provider: 08/18/24 18:50 History of Present Illness HPI narrative: Patient 79-year-old male history of diabetes presenting today with nausea vomiting diarrhea. He reports that last night he felt burning and acid in his chest. He then got up in the morning he had his breakfast but then incidentally vomited and had a couple episodes of diarrhea. He has been drinking water throughout the day. He has no significant abdominal pain no chest pain or shortness of breath. He has been chilled all day without fever. Related Data Home Medications Medication Instructions Recorded Confirmed PreserVision AREDS 1 cap PO BID 05/15/18 06/11/24 xxidsxyy-ybs-pcwoy acid 0.4 1 tab PO QPM 05/15/18 06/11/24 mg-lycopene 300 mcg-lutein 250 mcg tablet (Centrum Silver) ipratropium bromide 21 mcg (0.03 2 spray intranasal DAILY 12/09/21 06/11/24 %) nasal spray prednisolone acetate 1 % eye 1 drp EYE-RIGHT DAILY 09/06/22 06/11/24 drops,suspension cyclosporine 0.05 % eye drops in a 1 drp EYE-BOTH BID 03/07/23 06/11/24 dropperette (Restasis) valacyclovir 1 gram tablet 1,000 mg PO BID 05/16/23 06/11/24 polyethylene glycol 3350 17 4 g PO DAILY 08/21/23 06/11/24 gram/dose oral powder Previous Rx's Medication Instructions Recorded blood sugar diagnostic (OneTouch #100 ea 03/07/23 Ultra Test strips) cyclobenzaprine 5 mg tablet 5 mg PO TID PRN muscle spasm #90 05/12/24 tabs metformin 500 mg tablet 500 mg PO BID #90 tabs 05/12/24 oxycodone 5 mg tablet 5 mg PO BEDTIME PRN pain #10 tabs 05/12/24 tamsulosin 0.4 mg capsule 0.4 mg PO ONCE PM #90 caps 05/19/24 atorvastatin 40 mg tablet 40 mg PO QPM #90 tabs 08/05/24 ondansetron 4 mg disintegrating 4 mg PO Q8H PRN nausea and 08/18/24 tablet vomiting #10 tabs Allergies Allergy/AdvReac Type Severity Reaction Status Date / Time No Known Drug Allergies Allergy Verified 06/11/24 08:14 Patient History Medical History Lumbosacral spondylosis with radiculopathy Lumbar radiculopathy Cyst of right parotid gland Tobacco use disorder Type 2 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, bilateral DJD (degenerative joint disease), lumbar Osteoarthritis of right knee 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 Mixed hyperlipidemia Cerebrovascular disease BPH w urinary obs/LUTS History of primary bladder cancer Skin cancer Bladder cancer Enlarged prostate Numbness History of TIA (transient ischemic attack) Macular degeneration Surgical History H/O transurethral destruction of bladder lesion Hx of cystoscopy (12/23/19) Hx of left cataract extraction History of right cataract extraction (10/2019) Hx of inguinal hernia surgery Family History Father Cancer Diabetes mellitus Social History marital status: number of children: 3 household members: spouse Smoking Status: Never smoker alcohol intake: never caffeine: Yes eating out: 1-3 times/week Type(s) of exercise: walking Smoking Status: Never smoker alcohol intake frequency: 0-2 drinks per day Exam Initial Vital Signs Initial Vital Signs: Vital Signs Temperature 98.6 F 08/18/24 14:03 Pulse Rate 106 H 08/18/24 14:03 Respiratory Rate 18 08/18/24 14:03 Blood Pressure 171/80 H 08/18/24 14:03 Pulse Oximetry 99 08/18/24 14:03 Oxygen Delivery Method Room Air 08/18/24 14:03 GENERAL: Alert pleasant well-appearing 79-year-old male and in [no acute] distress. HEENT: Head atraumatic,EOMI, pupils reactive, face symmetric, [moist] mucous membranes CARDIOVASCULAR: Regular rate and rhythm without murmurs, rubs or gallops. RESPIRATORY: Breath sounds equal bilaterally, no wheezes rales or rhonchi. ABDOMEN: Soft, nontender. Normoactive bowel sounds all 4 quadrants. No guarding or rebound. EXTREMITIES: Normal range of motion, no clubbing or edema. Neurovascularly intact NEUROLOGICAL: Alert and oriented x4.Normal gait and speech. Cranial nerves II through XII grossly intact. SKIN: Warm, dry, no laceration, no petechiae, no rashes or lesions. Course Orders Ordered: Discontinued Medications Ondansetron HCl (Ondansetron 4 Mg/2 Ml Inj) 4 mg IV NOW PRN PRN Reason: Nausea And Vomiting Ondansetron HCl (Ondansetron 4 Mg Odt) 4 mg PO NOW PRN PRN Reason: Nausea And Vomiting Vital Signs Vital signs: Vital Signs - 8 hr 08/18/24 19:06 08/18/24 19:06 Pulse Rate 99 H Blood Pressure 166/76 H Pulse Oximetry 97 MDM - Abdominal Pain Lab Data 08/18/24 14:20 08/18/24 14:20 Labs: Lab Results 08/18/24 08/18/24 Range/Units 14:10 14:20 WBC 9.4 (4.5-11.0) X10^3/uL RBC 3.57 L (4.5-5.9) X10^6/uL Hgb 13.0 L (13.5-17.5) g/dL Hct 38.5 L (41-53) % MCV 107.7 H (80-100) fL MCH 36.5 H (26-34) PG MCHC 33.9 (30-36) % RDW 12.9 (11.6-14.8) % Plt Count 280 (150-400) X10^3/uL Neut % (Auto) 80.2 H (50-75) % Lymph % (Auto) 12.7 L (25-40) % [place] % (Auto) 6.3 (3-14) % Eos % (Auto) 0.3 L (2-4) % Baso % (Auto) 0.5 (0-2) % Neut # (Auto) 7500 H (9233-3592) /uL Lymph # (Auto) 1200 (3345-3123) /uL [place] # (Auto) 600 (0-900) /uL Eos # (Auto) 0 (0-450) /uL Baso # (Auto) 0 (0-100) /uL Sodium 134 L (137-145) mmol/L Potassium 4.5 (3.4-5.1) mmol/L Chloride 102 (98-107) mmol/L Carbon Dioxide 24 (22-32) mmol/L BUN 22 H (9-20) mg/dL Creatinine 1.00 (0.66-1.25) mg/dL Estimated GFR > 60 (>60) mL/min BUN/Creatinine Ratio 22.0 (6-22) Glucose 220 H (80-110) mg/dL Calcium 9.8 (8.4-10.2) mg/dL Total Bilirubin 0.5 (0.2-1.3) mg/dL AST 34 (17-59) IU/L ALT 26 (<50) IU/L Alkaline Phosphatase 90 (38-126) U/L Troponin I < 0.012 (0.01-0.034) ng/mL Total Protein 6.8 (6.3-8.2) g/dL Albumin 4.2 (3.5-5.0) g/dL Globulin 2.6 (1.7-4.1) g/dL Albumin/Globulin Ratio 1.6 (1.0-2.8) Lipase 88 (23-300) U/L SARS-CoV-2 (PCR) Negative (Negative) Influenza A (RT-PCR) Flu a negative (NEGATIVE) Influenza B (RT-PCR) Flu b negative (NEGATIVE) RSV (PCR) Negative (Negative) Point of care testing: Urine Dip Bedside Urine Glucose Negative Bedside Urine Bilirubin - Negative Bedside Urine Ketone - Negative Urine Specific [place] 1.005 Bedside Urine Occult Blood - Negative Bedside Urine pH 7.5 Bedside Urine Protein - Negative Bedside Urine Urobilinogen - Negative Bedside Urine Nitrite - Negative Bedside Urine Leukocytes - Negative Esterase ECG Data Attestation: I personally reviewed and interpreted this ECG as follows: Prior ECG tracings: available for review Interpretation: Normal sinus rhythm rate 92 DE interval 216 QRS 138 QTC 447 right bundle-branch block noted similar to previous EKGs MDM Narrative Medical decision making narrative: MDM CC: Nausea vomiting diarrhea Complicating co-morbidities: Diabetes Medical records reviewed: Previous PCP visit Differential considered: DKA gastroenteritis acute coronary syndrome Exam documented above, pertinent findings include: 79-year-old male appears well abdomen is soft nontender moist mucous membranes Lab Test results independently reviewed as above. Pertinent findings: WBCs 9.8 hemoglobin 13.0 hematocrit 38.5 platelets 280 Sodium 134 potassium 4.5 chloride 102 carbon dioxide 24 BUN 22 creatinine 1.0 glucose 220 Bilirubin 0.5 AST 34 ALT 26 alk-phos 90 Troponin negative Independently reviewed EKG as above right bundle-branch block no ischemia Imaging studies independently reviewed: Not Treatments: Zofran Re-evaluations: Patient has no further vomiting nausea or diarrhea in the ED abdomen remained soft Discussion: 79-year-old male presents today with acid reflux last night and then had episode of vomiting and diarrhea this morning. He said decreased appetite. Patient symptoms are consistent with a gastroenteritis. Abdomen is soft nontender no need for imaging at this time. Troponin is negative. He reports that the burning sensation he felt last night he could taste it in his mouth it seems to be consistent GERD then vomited this morning. He is able to stay hydrated. He has no evidence of DKA. At this time we discussed supportive care only. All questions have been addressed Discharge Plan Departure Patient Disposition: Home Clinical Impression: Gastroenteritis Instructions: DI for Viral Gastroenteritis -- Adult Activity Restrictions/Additional Instructions: *You have been diagnosed with gastroenteritis *What to do: Increase fluid as tolerated expect to have some nausea vomiting and diarrhea. *Continue to take medications as directed Zofran 4 mg every 8 hours if needed for nausea or vomiting *Follow up with your primary care provider in 2-3 days or call [phone] *Return to ER if you should have persistent vomiting dizziness lightheadedness increased abdominal pain or chest pain or any new, worsening or concerning symptoms Prescriptions: New ondansetron 4 mg tablet,disintegrating 4 mg PO Q8H PRN (Reason: nausea and vomiting) Qty: 10 0RF No Action metformin 500 mg tablet 500 mg PO BID Qty: 90 0RF cyclobenzaprine 5 mg tablet 5 mg PO TID PRN (Reason: muscle spasm) Qty: 90 3RF oxycodone 5 mg tablet 5 mg PO BEDTIME PRN (Reason: pain) Qty: 10 0RF tamsulosin 0.4 mg capsule 0.4 mg PO ONCE PM Qty: 90 3RF atorvastatin 40 mg tablet 40 mg PO QPM Qty: 90 0RF valacyclovir 1 gram tablet 1,000 mg PO BID polyethylene glycol 3350 17 gram/dose powder 4 g PO DAILY ipratropium bromide 21 mcg (0.03 %) spray,non-aerosol 2 spray intranasal DAILY prednisolone acetate 1 % drops,suspension 1 drp EYE-RIGHT DAILY Patient Comments: instill 1 drop by ophthalmic route everyday in the right eye cyclosporine [Restasis] 0.05 % dropperette 1 drp EYE-BOTH BID Patient Comments: INSTILL ONE DROP INTO BOTH EYES TWO TIMES DAILY (DME) OneTouch Ultra Test Strip See Rx Instructions .ROUTE .MEDSUPPLY Qty: 100 11RF Rx Instructions: Use to Check Blood Sugars 1x a day Centrum Silver 0.4-300-250 mg-mcg-mcg Tablet 1 tab PO QPM PreserVision AREDS 1 cap PO BID Referrals: Coby Painting MD [Primary Care Provider] - Stand Alone Forms: Patient Portal/API/Survey
[2024-08-18 19:06] VITALS: BP 166/76; PULSE 99; O2SAT 97
== END 2024-08-18 19:21 | disposition home or self-care (01) ==
PROVIDERS: Emergency Medicine; Emergency Provider Emergency Medicine; Family Provider Internal Medicine; PCP Student in an Organized Health Care Education/Training Program
DX: K52.9 Noninfective gastroenteritis and colitis, unspecified (principal)
CPT/HCPCS: 0241U; 80053; 81003; 83690; 84484; 85025; 93005; 99282; 99284

== ENCOUNTER 2024-12-04 07:15 | Outpatient (CLI) | payer MEDICARE, OTHER, SELFPAY ==
[2024-12-04] VITALS (9 sets, daily range): BP systolic 132–168; BP diastolic 55–77; PULSE 68–77; RESP 14–18; O2SAT 94–100
--- NOTE | 2024-12-04 08:00 | P.PCN_ITS ---
Date/Time/Diagnoses Date of procedure: 12/04/24 Time of procedure: 08:01 Pre-procedure diagnosis: 1. FACET ARTHROPATHY Post-procedure diagnosis: same Procedure Notes Procedure: 1. Right L4, L5 and S1 MB BLOCKS LA Indications: Herman is referred by Dr. Painting for treatment of Right Axial LBP. Physician: Juan Ramon Marrufo Total Fluoroscopy time (seconds): 6 Total sedation minutes: 14 Complications: none Procedure in detail & Post-procedure care: DESCRIPTION OF PROCEDURE Fluoroscopically guided, contrast-controlled right L4, L5 and S1 medial branch blocks with 0.5cc of 0.5% Marcaine. Following review of allergy and review of potential side effects and complications, including, but not necessarily limited to, infection, allergic reaction, local tissue breakdown, nerve injury, paralysis, stroke and possible , the patient indicated that the patient understood and agreed to proceed. An informed consent document was signed by the patient, witnessed by a nurse, and placed in the patient's chart. After review of previous anaesthesic history and IV conscious sedation the patient was deemed safe to proceed with today?s procedure with IV conscious sedation as ASA class II designation. Safety time-out was performed to confirm patient ID, procedure to be performed and site of procedure. IV sedation was accomplished with a combination of 2mg of Versed was administered by the RN after DO order, titrated to patient comfort during the course of the procedure while the patient remained responsive to all verbal commands In the prone position, following sterile prep and drape of the lumbar region, the right L4, L5 and S1 anatomical location of the medial branch of the dorsal ramus was identified fluoroscopically. Subsequently an anesthetic skin wheal using 1% lidocaine solution was initiated at each of the anatomical spots. Subsequently then a 22-gauge 3.5-inch spinal needle was atraumatically introduced and advanced under fluoroscopic guidance at each of the corresponding sites at the right L4, L5 and S1 MB. After negative aspiration, 0.2 cc of Isovue 200 was injected, confirming placement without vascular or intrathecal uptake. Subsequently then 0.5 cc of 0.5% Marcaine solution was injected at each of the corresponding sites at the right L4, L5 and S1 medial branch locations. The patient tolerated the procedure well without signs or symptoms of complications. The procedure tolerated the procedure well without signs or symptoms of complications prior to transfer to the recovery area continued monitoring without incident. Post-procedure, the patient was monitored initiating provocative activities to measure the amount of relief from block of the facetogenic pain. The patient reported a VAS of 7 prior to the procedure and a post-procedure VAS of 1. It has been a pleasure to assist in the diagnostic and therapeutic care of your patient. POST OP INSTRUCTIONS The patient was provided with a Pain Log to complete over the next several hours and subsequent days prior to the patient's follow up with the ordering physician. 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 The patient is aware, was provided, once again, with a Pain Log and will follow up with the referring physician for review and clinical correlation.
[2024-12-04] MEDS: MIDAZOLAM 2 MG/2 ML VIAL IV (08:15)
[2024-12-04] MEDS: iopamidoL 15 ML VIAL 3 ML INJ (08:23)
[2024-12-04] MEDS: BUPIVACAINE 0.5% (PF) 10 ML VIAL 2 ML INJ (08:23)
[2024-12-04 08:26] LABS: Add Manual Diff / Slide Review NO; Basophils Absolute Auto 0 /uL (0-100); Basophils Percent Auto 0.5 % (0-2); Eosinophils Absolute Auto 200 /uL (0-450); Eosinophils Percent Auto 2.9 % (2-4); Hematocrit 39.2 % (41-53); Hemoglobin 13.3 g/dL (13.5-17.5); Lymphocytes Absolute Auto 1800 /uL (1100-4500); Lymphocytes Percent Auto 32.4 % (25-40); Mean Corpuscular Hemoglobin 36.7 PG (26-34); Mean Corpuscular Volume 108.1 fL (80-100); Monocytes Absolute Auto 700 /uL (0-900); Monocytes Percent Auto 12.4 % (3-14); Neutrophils Absolute Auto 2900 /uL (1500-7000); Neutrophils Percent Auto 51.8 % (50-75); Platelet Count 240 X10^3/uL (150-400); Red Blood Cell Count 3.62 X10^6/uL (4.5-5.9); Red Cell Distribution Width 13.4 % (11.6-14.8); White Blood Cell Count 5.5 X10^3/uL (4.5-11.0)
[2024-12-04 08:42] LABS: Hemoglobin A1C% w Est Avg Glu 6.5 % (4.0-6.0)
[2024-12-04 09:02] LABS: Alanine Aminotransferase 24 IU/L (<50); Albumin 4.4 g/dL (3.5-5.0); Albumin Globulin Ratio 1.6 (1.0-2.8); Alkaline Phosphatase 84 U/L (38-126); Aspartate Aminotransferase 30 IU/L (17-59); BUN Creatinine Ratio 28.3 (6-22); Bilirubin Total 0.5 mg/dL (0.2-1.3); Blood Urea Nitrogen 32 mg/dL (9-20); Calcium 9.5 mg/dL (8.4-10.2); Carbon Dioxide 23 mmol/L (22-32); Chloride 106 mmol/L (98-107); Cholesterol 112 mg/dL (140-199); Estimated Glomerular Filt Rate > 60 mL/min (>60); Globulin 2.7 g/dL (1.7-4.1); Glucose 137 mg/dL (80-110); HDL Cholesterol 39 mg/dL (40-60); HEMOLYSIS < 15 (0-50); LDL Cholesterol Calculated 57 mg/dL (<100); Potassium 4.8 mmol/L (3.4-5.1); Sodium 139 mmol/L (137-145); Total Protein 7.1 g/dL (6.3-8.2); Triglycerides 79 mg/dL (35-150)
== END 2024-12-04 09:00 | disposition home or self-care (01) ==
PROVIDERS: Family Provider Internal Medicine; PCP Student in an Organized Health Care Education/Training Program; Referring Provider Physical Medicine & Rehabilitation; Visit Provider Physical Medicine & Rehabilitation
DX: M47.816 Spondylosis without myelopathy or radiculopathy, lumbar region (principal); E11.59 Type 2 diabetes mellitus with other circulatory complications; E78.2 Mixed hyperlipidemia; M47.817 Spondylosis without myelopathy or radiculopathy, lumbosacral region
CPT/HCPCS: 36415; 64493; 64494; 80053; 80061; 83036; 85025; 99152; J2250

== ENCOUNTER → 2024-12-04 14:08 | Outpatient (CLI) | payer MEDICARE, OTHER, SELFPAY ==
[2024-12-08 15:01] LABS: Free T3, Triiodothyronine Free 4.72 pg/mL (2.77-5.27)
[2024-12-08 15:15] LABS: Thyroid Stimulating Hormone 2.04 uIU/mL (0.47-4.68)
[2024-12-08 15:51] LABS: Folate 17.1 ng/mL (2.76-20.0); Vitamin B12 546 pg/mL (239-931)
== END ==
LOC: LAB 01-06 09:26
PROVIDERS: Family Provider Internal Medicine; PCP Student in an Organized Health Care Education/Training Program; Referring Provider Student in an Organized Health Care Education/Training Program; Visit Provider Student in an Organized Health Care Education/Training Program
DX: D53.9 Nutritional anemia, unspecified (principal)
CPT/HCPCS: 82607; 82746; 84439; 84443; 84481

== ENCOUNTER → 2025-01-16 09:20 | Outpatient (CLI) | payer MEDICARE, OTHER, SELFPAY ==
[2025-01-16 10:19] LABS: Blood Urea Nitrogen 26 mg/dL (9-20); Calcium 9.2 mg/dL (8.4-10.2); Carbon Dioxide 24 mmol/L (22-32); Chloride 106 mmol/L (98-107); Estimated Glomerular Filt Rate > 60 mL/min (>60); Glucose 205 mg/dL (70-99); HEMOLYSIS < 15 (0-50); Potassium 4.2 mmol/L (3.4-5.1); Sodium 139 mmol/L (137-145)
== END ==
PROVIDERS: Family Provider Internal Medicine; PCP Student in an Organized Health Care Education/Training Program; Referring Provider Student in an Organized Health Care Education/Training Program; Visit Provider Student in an Organized Health Care Education/Training Program
DX: E11.3213 Type 2 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, bilateral (principal)
CPT/HCPCS: 36415; 80048

== ENCOUNTER → 2025-07-14 10:55 | Outpatient (CLI) | payer OTHER, SELFPAY ==
[2025-07-14 12:03] LABS: Add Manual Diff / Slide Review NO; Hematocrit 41.0 % (41-53); Hemoglobin 14.1 g/dL (13.5-17.5); Lymphocytes Absolute Auto 1800 /uL (1100-4500); Mean Corpuscular HGB Conc 34.4 % (30-36); Mean Corpuscular Hemoglobin 34.8 PG (26-34); Mean Corpuscular Volume 101.2 fL (80-100); Platelet Count 268 X10^3/uL (150-400)
[2025-07-14 12:25] LABS: Hemoglobin A1C% w Est Avg Glu 7.5 % (4.0-6.0)
[2025-07-14 12:30] LABS: Blood Urea Nitrogen 30 mg/dL (9-20); Calcium 10.0 mg/dL (8.4-10.2); Carbon Dioxide 23 mmol/L (22-32); Chloride 106 mmol/L (98-107); Cholesterol 116 mg/dL (140-199); Estimated Glomerular Filt Rate > 60 mL/min (>60); Glucose 242 mg/dL (70-99); HDL Cholesterol 41 mg/dL (40-60); HEMOLYSIS < 15 (0-50); Sodium 140 mmol/L (137-145); Triglycerides 254 mg/dL (35-150)
[2025-07-14 12:40] LABS: Potassium 5.8 mmol/L (3.4-5.1)
[2025-07-14 14:19] LABS: Microalbumi Creatinin Ratio Ur 27.0 ug/mg CR (<30)
== END ==
PROVIDERS: PCP Student in an Organized Health Care Education/Training Program; Referring Provider Student in an Organized Health Care Education/Training Program; Visit Provider Student in an Organized Health Care Education/Training Program
DX: E11.3213 Type 2 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, bilateral (principal); E11.59 Type 2 diabetes mellitus with other circulatory complications; I67.9 Cerebrovascular disease, unspecified
CPT/HCPCS: 36415; 80048; 80061; 82043; 82570; 83036; 85025

== ENCOUNTER → 2025-07-15 11:47 | Outpatient (CLI) | payer OTHER, SELFPAY ==
[2025-07-15 12:18] LABS: Alanine Aminotransferase 23 IU/L (<50); Albumin 4.6 g/dL (3.5-5.0); Albumin Globulin Ratio 1.4 (1.0-2.8); Alkaline Phosphatase 88 U/L (38-126); Blood Urea Nitrogen 26 mg/dL (9-20); Calcium 9.8 mg/dL (8.4-10.2); Carbon Dioxide 22 mmol/L (22-32); Chloride 106 mmol/L (98-107); Estimated Glomerular Filt Rate > 60 mL/min (>60); Globulin 3.2 g/dL (1.7-4.1); Glucose 153 mg/dL (70-99); HEMOLYSIS < 15 (0-50); Potassium 5.0 mmol/L (3.4-5.1); Sodium 139 mmol/L (137-145); Total Protein 7.8 g/dL (6.3-8.2)
== END ==
PROVIDERS: PCP Student in an Organized Health Care Education/Training Program; Referring Provider Student in an Organized Health Care Education/Training Program; Visit Provider Student in an Organized Health Care Education/Training Program
DX: E87.5 Hyperkalemia (principal)
CPT/HCPCS: 36415; 80053

== ENCOUNTER 2025-08-25 09:31 | Outpatient (CLI) | payer OTHER, SELFPAY ==
[2025-08-25] VITALS (7 sets, daily range): BP systolic 115–155; BP diastolic 57–72; PULSE 77–84; RESP 14–17; TEMP 36.8; O2SAT 95–100
[2025-08-25] MEDS: MIDAZOLAM 2 MG/2 ML VIAL IV (11:13)
[2025-08-25] MEDS: BETAMETHASONE 30 MG/5 ML MDV 12 MG INJ (11:19)
[2025-08-25] MEDS: BETAMETHASONE 30 MG/5 ML MDV 6 MG INJ (11:21)
--- NOTE | 2025-08-25 11:28 | P.PCN_ITS ---
Date/Time/Diagnoses Date of procedure: 08/25/25 Time of procedure: 11:28 Pre-procedure diagnosis: 1. FORAMINAL STENOSIS WITH LE SYMPTOMS Post-procedure diagnosis: same Procedure Notes Procedure: 1. FLUOROSCOPICALLY GUIDED CONTRAST CONTROLLED TRANSFORAMINAL EPIDURAL STEROID INJECTION - RIGHT L4/5 TFESI Indications: Radu is referred by Dr. Painting for treatment of Foraminal Stenosis with Right LE Symptoms Physician: Juan Ramon Marrufo Total Fluoroscopy time (seconds): 9 Total sedation minutes: 11 Complications: none Procedure in detail & Post-procedure care: FINDINGS Foraminal Nerve Root Compression secondary to disc disease and facet hypertrophy DESCRIPTION OF PROCEDURE Following review of allergy and review of potential side effects and complications, including, but not necessarily limited to, infection, allergic reaction, local tissue breakdown, stroke, temporary or permanent nerve injury, paralysis, and possible , the patient indicated that the patient understood and agreed to proceed. An informed consent document was signed by the patient, witnessed by a nurse, and placed in the patient's chart. Additionally, other treatment options including medications, modalities, and physical therapy were reviewed with the patient. After review of previous anaesthesic history and IV conscious sedation the patient was deemed safe to proceed with today?s procedure with IV conscious sedation as ASA class II designation. Safety time-out was performed to confirm patient ID, procedure to be performed and site of procedure. IV sedation was accomplished with a combination of 2mg of Versed was administered by the RN after DO order, titrated to patient comfort during the course of the procedure while the patient remained responsive to all verbal commands In the prone position following sterile prep and drape of the lumbar region, the right L4/5 posterior neuroforamen was identified fluoroscopically. The skin was anesthetized via a 25-gauge 1.5-inch needle with 1% lidocaine solution. At this point, a 25-gauge 3.5-inch spinal needle was atraumatically introduced and advanced under fluoroscopic guidance through the posterior right L4/5 neuroforamen to approximately the anterior aspect of the canal. Depth was confirmed on lateral view. Following negative aspiration, injection of approximately 1.5cc of Isovue 200 under live fluoroscopy in the AP view confirmed excellent flow along the nerve root, into the epidural space without vascular or intrathecal uptake observed Radiological data, including multiple fluoroscopic views of the lumbosacral spine, reveal a spinal needle at the right L4/5 posterior neuroforamen. Subsequent views show flow of contrast material flowing superiorly and inferiorly along the nerve root confirming epidural flow. Subsequently, a test dose of 1.5 cc of 0.25%marcaine solution was administered and patient was observed for two minutes for signs or symptoms of complications, including abdominal pain, shortness of breath, bilateral upper or lower extremity weakness, nausea and vomiting, prior to steroid injection. At this point, a total of 3cc or 10mg of dexamethasone and 12mg of betamethasone was injected without incident. The procedure tolerated the procedure well without signs or symptoms of complications prior to transfer to the recovery area continued monitoring without incident. The patient was then transferred to the recovery area where they were observed for an appropriate time after the injection. The patient reported a VAS score of 7 prior to the procedure and a post- procedure VAS of 0. POST OP INSTRUCTIONS The patient was provided a Pain Log to continue to record their response to the target-specific procedure prior to follow-up visit with their referring physician. Additionally, specific post-injection care instructions and a contact number to our office were provided if concerns arise regarding possible complications associated with the procedure are suspected.
--- NOTE | 2025-08-25 11:29 | P.PCN_ITS ---
Date/Time/Diagnoses Date of procedure: 08/25/25 Time of procedure: 11:29 Pre-procedure diagnosis: FORAMINAL STENOSIS WITH LE SYMPTOMS Post-procedure diagnosis: same Procedure Notes Procedure: 1. FLUOROSCOPICALLY GUIDED CONTRAST CONTROLLED TRANSFORAMINAL EPIDURAL STEROID INJECTION - RIGHT L5/S1 TFESI Indications: Herman is referred by Dr. Painting for treatment of Foraminal Stenosis with Right LE Symptoms Physician: Juan Ramon Marrufo Total Fluoroscopy time (seconds): 9 Total sedation minutes: 11 Complications: none Procedure in detail & Post-procedure care: FINDINGS Foraminal Nerve Root Compression secondary to disc disease and facet hypertrophy DESCRIPTION OF PROCEDURE Following review of allergy and review of potential side effects and complications, including, but not necessarily limited to, infection, allergic reaction, local tissue breakdown, stroke, temporary or permanent nerve injury, paralysis, and possible , the patient indicated that the patient understood and agreed to proceed. An informed consent document was signed by the patient, witnessed by a nurse, and placed in the patient's chart. Additionally, other treatment options including medications, modalities, and physical therapy were reviewed with the patient. After review of previous anaesthesic history and IV conscious sedation the patient was deemed safe to proceed with today?s procedure with IV conscious sedation as ASA class II designation. Safety time-out was performed to confirm patient ID, procedure to be performed and site of procedure. IV sedation was accomplished with a combination of 2mg of Versed was administered by the RN after DO order, titrated to patient comfort during the course of the procedure while the patient remained responsive to all verbal commands In the prone position following sterile prep and drape of the lumbar region, the right L5/S1 posterior neuroforamen was identified fluoroscopically. The skin was anesthetized via a 25-gauge 1.5-inch needle with 1% lidocaine solution. At this point, a 25-gauge 3.5-inch spinal needle was atraumatically introduced and advanced under fluoroscopic guidance through the posterior right L5/S1 neuroforamen to approximately the anterior aspect of the canal. Depth was confirmed on lateral view. Following negative aspiration, injection of approximately 1.5cc of Isovue 200 under live fluoroscopy in the AP view confirmed excellent flow along the nerve root, into the epidural space without vascular or intrathecal uptake observed Radiological data, including multiple fluoroscopic views of the lumbosacral spine, reveal a spinal needle at the right L5/S1 posterior neuroforamen. Subsequent views show flow of contrast material flowing superiorly and inferiorly along the nerve root confirming epidural flow. Subsequently, a test dose of 1.5cc of 0.25% marcaine solution was administered and patient was observed for two minutes for signs or symptoms of complications, including abdominal pain, shortness of breath, bilateral upper or lower ex tremity weakness, nausea and vomiting, prior to steroid injection. At this point, a total of 3cc or 10mg of dexamethasone and 12mg of betamethasone was injected without incident. The procedure tolerated the procedure well without signs or symptoms of complications prior to transfer to the recovery area continued monitoring without incident. The patient was then transferred to the recovery area where they were observed for an appropriate time after the injection. The patient reported a VAS score of 7 prior to the procedure and a post- procedure VAS of 0. POST OP INSTRUCTIONS The patient was provided a Pain Log to continue to record their response to the target-specific procedure prior to follow-up visit with their referring physician. Additionally, specific post-injection care instructions and a contact number to our office were provided if concerns arise regarding possible complications associated with the procedure are suspected.
== END 2025-08-25 12:01 | disposition home or self-care (01) ==
LOC: RAD 09:32
PROVIDERS: PCP Student in an Organized Health Care Education/Training Program; Referring Provider Physical Medicine & Rehabilitation; Visit Provider Physical Medicine & Rehabilitation
DX: M48.061 Spinal stenosis, lumbar region without neurogenic claudication (principal); M47.26 Other spondylosis with radiculopathy, lumbar region; M51.16 Intervertebral disc disorders with radiculopathy, lumbar region; M48.07 Spinal stenosis, lumbosacral region; M51.17 Intervertebral disc disorders with radiculopathy, lumbosacral region; M47.27 Other spondylosis with radiculopathy, lumbosacral region
CPT/HCPCS: 64483; 64484; 99152; J0702; J1100; J2250